=== PATIENT | female | born 1945 | race Caucasian/White ===

== ENCOUNTER 2022-05-18 11:28 | Inpatient (IN) | payer MEDICARE, OTHER ==
[~2022-05-18] VITALS: Ht 170.1 cm; Wt 81.6 kg
--- NOTE | 2022-05-18 11:40 | ED Fall/Injury ---
General Chief Complaint: Trauma-Non Activation Stated Complaint: RT HIP AND SHOULDER PAIN, PT WAS FOUND ON FLOOR Source: patient, EMS, other (daughter ) Exam Limitations: no limitations History of Present Illness Date Seen by Provider: May 18, 2022 Time Seen by Provider: 11:24 Initial Comments This is a well-appearing 76-year-old female who presented to the ER via [facility] after being found down on floor in her home. She does have a history of dementia and lives independently but with her daughter next-door. She is typically able to complete all of her functions of daily living without issue. She states she believes she fell this morning, does not recall how she fell. She is complaining of mild pain in her right shoulder, right neck, right hip, right foot. When EMS arrived she was laying on her left lateral side. Daughter states that she is in new clothes so she is believed to have fallen sometime this morning after dressing. Allergies and Home Medications Allergies Coded Allergies: No Known Drug Allergies (Unverified , 05/18/22) Patient Home Medication List Home Medication List Reviewed: Yes Donepezil HCl (Donepezil HCl) 10 Mg Tablet, 10 MG PO HS, (Reported) Entered as Reported by: ISMA MATHEWS on 05/19/221520 Last Action: Continued Losartan Potassium (Losartan Potassium) 25 Mg Tablet, 25 MG PO DAILY, (Reported) Entered as Reported by: ISMA MATHEWS on 05/19/221520 Last Action: Continued Memantine HCl (Memantine HCl) 10 Mg Tablet, 10 MG PO BID, (Reported) Entered as Reported by: ISMA MATHEWS on 05/19/221520 Last Action: Continued Review of Systems Review of Systems Constitutional: no symptoms reported Eyes: No Symptoms Reported Ears, Nose, Mouth, Throat: no symptoms reported Respiratory: no symptoms reported Cardiovascular: no symptoms reported Gastrointestinal: no symptoms reported Genitourinary: no symptoms reported Musculoskeletal: see HPI Skin: no symptoms reported Psychiatric/Neurological: No Symptoms Reported Physical Exam Vital Signs Capillary Refill : Height, Weight, BMI Height: '" Weight: lbs. oz. kg; BMI Method: General Appearance: WD/WN, no apparent distress HEENT: PERRL/EOMI, normal ENT inspection, pharynx normal Neck: full range of motion, supple, normal inspection Cardiovascular: regular rate, rhythm, no murmur Respiratory: lungs clear, normal breath sounds, no respiratory distress, no accessory muscle use Gastrointestinal: normal bowel sounds, non tender, soft Back: normal inspection, no vertebral tenderness Extremities: other (right hip short and externally rotated, neurovascular intact distal to injury. No tenderness over bilateral knees. ) Neurologic/Psychiatric: no motor/sensory deficits, alert, normal mood/affect, oriented x 3 Skin: normal color, warm/dry Prichard Coma Score Best Eye Response: (4) Open Spontaneously Best Verbal Response: (5) Oriented Best Motor Response: (6) Obeys Commands Terry Total: 15 Progress/Results/Core Measures Results/Orders Lab Results Laboratory Tests Test 05/18/22 11:40 Range/Units White Blood Count 10.1 4.3-11.0 10^3/uL Red Blood Count 4.53 3.80-5.11 10^6/uL Hemoglobin 14.5 11.5-16.0 g/dL Hematocrit 44 35-52 % Mean Corpuscular Volume 96 80-99 fL Mean Corpuscular Hemoglobin 32 25-34 pg Mean Corpuscular Hemoglobin Concent 33 32-36 g/dL Red Cell Distribution Width 12.2 10.0-14.5 % Platelet Count 340 130-400 10^3/uL Mean Platelet Volume 9.6 9.0-12.2 fL Sodium Level 141 135-145 MMOL/L Potassium Level 3.8 3.6-5.0 MMOL/L Chloride Level 103 98-107 MMOL/L Carbon Dioxide Level 25 21-32 MMOL/L Anion Gap 13 5-14 MMOL/L Blood Urea Nitrogen 20 H 7-18 MG/DL Creatinine 0.84 0.60-1.30 MG/DL Estimat Glomerular Filtration Rate 72 BUN/Creatinine Ratio 24 Glucose Level 122 H 70-105 MG/DL Calcium Level 9.4 8.5-10.1 MG/DL Corrected Calcium 9.6 8.5-10.1 MG/DL Total Bilirubin 1.4 H 0.1-1.0 MG/DL Aspartate Amino Transf (AST/SGOT) 55 H 5-34 U/L Alanine Aminotransferase (ALT/SGPT) 26 0-55 U/L Alkaline Phosphatase 90 40-136 U/L Total Creatine Kinase 36 29-168 U/L Total Protein 8.1 6.4-8.2 GM/DL Albumin 3.8 3.2-4.5 GM/DL My Orders Orders - MARY ANN CUNHA APRN Ct Head/Cervical Spine Wo (05/18/22 11:33) Pelvis With Right Hip 2-3views (05/18/22 11:33) Shoulder, Right, 2 Views (05/18/22 11:33) Humerus, Right, 2 Views (05/18/22 11:33) Foot, Right, 3 View (05/18/22 11:33) Cbc No Diff (05/18/22 11:35) Comprehensive Metabolic Panel (05/18/22 11:35) Creatine Kinase (05/18/22 11:35) Ed Iv/Invasive Line Start (05/18/22 11:35) Chest 1 View, Ap/Pa Only (05/18/22 12:14) Fentanyl Inj (Sublimaze Injection) (05/18/22 12:45) Rodriguez Cath (05/18/22 12:38) Ice: Apply To Affected Area (05/18/22 12:38) Ed Admission (Communication) (05/18/22 13:39) Medications Given in ED Vital Signs/I&O Progress Progress Note : Progress Note Patient examined and in no acute distress. Trauma level 3 for presumed unwitnessed fall. She is awake and alert, GCS 15 upon arrival. ABCs intact. She is complaining of mild pain mostly on the right side of her body. We will go ahead and obtain some basic labs, CK, CT imaging of her head and cervical spine as well as x-rays of her right shoulder, hip and pelvis, foot. Daughter is at bedside. Confirms that patient does not take any anticoagulants. She takes 3 medications, 2 for dementia and 1 antihypertensive. Diagnostic Imaging Diagonstic Imaging: Xray Comments [facility], [place] NAME: ASTER HARRISON MED REC#: [id number] PT STATUS: ADM IN : 1945 PHYSICIAN: MARY ANN CUNHA APRN ADMIT DATE: 05/18/22 Signed Date of Exam:05/18/22 FOOT, RIGHT, 3 VIEW INDICATION: Fall, pain. COMPARISON: None available TECHNIQUE: 3 radiographs of the right foot dated 05/18/2022. FINDINGS: Severe hallux valgus metatarsus primus varus with bunion formation. A linear lucency with cortical disruption is noted involving the base of the 5th metatarsal. However, overlying external artifact is seen at this location on the frontal and oblique views. No additional fracture or dislocation. No destructive osseous process. Scattered degenerative changes are present, including prominent osteophyte formation involving the dorsum of the midfoot. Small plantar calcaneal enthesophyte. Scattered degenerative changes, by far greatest involving the 1st MTP joint. IMPRESSION: Lucency involving the base of the 5th metatarsal. This may relate to the overlying artifact at this location, though nondisplaced recent fracture should be considered. Recommend correlation for focal pain at the base of the 5th metatarsal. Severe hallux valgus metatarsus primus varus with bunion formation. Scattered degenerative changes. Dictated by: Dictated on workstation # [id number] Dict: 05/18/22 1259 Trans: 05/18/22 1613 [id number] Interpreted by: ADAM ACEVES MD Electronically signed by: ADAM ACEVES MD 05/18/22 1613 Comments [facility], [place] NAME: ASTER HARRISON [facility] REC#: [id number] PT STATUS: ADM IN : 1945 PHYSICIAN: MARY ANN CUNHA APRN ADMIT DATE: 05/18/22 Signed Date of Exam:05/18/22 CT HEAD/CERVICAL SPINE WO PROCEDURE: CT head and CT cervical spine without contrast. TECHNIQUE: Multiple contiguous axial images were obtained through the brain and cervical spine without the use of intravenous contrast. Sagittal and coronal reformations through the cervical spine were then performed. Auto Exposure Controls were utilized during the CT exam to meet ALARA standards for radiation dose reduction. INDICATION: Suspicion for unwitnessed fall. COMPARISON: I have no relevant comparison. FINDINGS: CT HEAD: Cerebral cortical atrophy and periventricular white matter small vessel disease are chronic senescent findings. There is no raheem hydrocephalus and no focal or generalized cerebral edema. There is no evidence for an elevation of the intracerebral pressures. No pneumocephalus. No calvarial fracture deformity. No acute or suspicious extra-axial fluid collection. There is membrane thickening as well as some fluid within the left maxillary sinus. I cannot identify a maxillary sinus wall fracture, and this is likely on an inflammatory basis as opposed to reflective of post-traumatic change. No facial fracture deformity, and no appreciable hemo-sinus. CT CERVICAL SPINE: Cervical body heights are maintained and alignment anatomic. There are degenerative changes to the discs, endplates, and facets but no high-grade canal stenosis and no cervical spinal fracture or traumatic malalignment. The craniocervical relationship appeared normal. The central skull base is intact. There are carotid atherosclerotic vascular calcifications. Hyoid structures of the larynx and thyroid cartilage showed no traumatic deformity. The thoracic inlet and pulmonary apices are nonacute. IMPRESSION: CT HEAD: Chronic senescent changes and likely inflammatory left maxillary sinus disease with no acute or post-traumatic sequelae identified. CT CERVICAL: Degenerative changes with no fracture or traumatic malalignment. Dictated by: Dictated on workstation # [id number] Dict: 05/18/22 1204 Trans: 05/18/221726 [id number] Interpreted by: JARETT DOWELL Electronically signed by: JARETT DOWELL 05/18/221726 Diagonstic Imaging: Xray Comments [facility], [place] NAME: CHRISTYASTER MED REC#: [id number] PT STATUS: ADM IN : 1945 PHYSICIAN: MARY ANN CUNHA APRN ADMIT DATE: 05/18/22 Signed Date of Exam:05/18/22 PELVIS WITH RIGHT HIP 2-3VIEWS PELVIS WITH RIGHT HIP 2-3VIEWS INDICATION: Right hip pain after fall. COMPARISON: None available. TECHNIQUE: AP pelvis with AP and crosstable lateral views of right hip. FINDINGS: There is an acute fracture of the right femoral neck within the vgm-sd-evrsvqddkdhc region. The fracture is mildly impacted into the femoral shaft component. Moderate osteoarthritis of right hip. Degenerative changes are also present in the left hip and lumbar spine. IMPRESSION: Acute fracture of the right femoral neck within the basicervical region is mildly impacted. Dictated by: Dictated on workstation # [id number] Dict: 05/18/22 1242 Trans: 05/18/221726 [facility] [id number] Interpreted by: SHANNAN PALOMINO MD Electronically signed by: SHANNAN PALOMINO MD 05/18/221726 Diagonstic Imaging: Xray Comments [facility], [place] NAME: ASTER HARRISON [facility] REC#: [id number] PT STATUS: ADM IN : 1945 PHYSICIAN: MARY ANN CUNHA APRN ADMIT DATE: 05/18/22 Signed Date of Exam:05/18/22 HUMERUS, RIGHT, 2 VIEWS HUMERUS, RIGHT, 2 VIEWS INDICATION: Right upper arm injury. COMPARISON: None available. TECHNIQUE: Two views of the right humerus. FINDINGS: No acute fracture within the humerus. The shoulder and elbow are normal in alignment. No radiopaque foreign body. IMPRESSION: No fracture within the right humerus. Dictated by: Dictated on workstation # [id number] Dict: 05/18/22 1241 Trans: 05/18/221726 [id number] Interpreted by: SHANNAN PALOMINO MD Electronically signed by: SHANNAN PALOMINO MD 05/18/221726 Diagonstic Imaging: Xray Comments [facility] [place] NAME: ASTER HARRISON [facility] REC#: [id number] PT STATUS: ADM IN : 1945 PHYSICIAN: MARY ANN CUNHA APRN ADMIT DATE: 05/18/22 Signed Date of Exam:05/18/22 SHOULDER, RIGHT, 2 VIEWS SHOULDER, RIGHT, 2 VIEWS INDICATION: Right shoulder injury. COMPARISON: None available. TECHNIQUE: 3 views right shoulder FINDINGS: No acute fracture. Glenohumeral and acromioclavicular joints are normal alignment. Mild AC joint osteoarthritis. Subacromial space is preserved. IMPRESSION: No acute fracture or traumatic malalignment. Dictated by: Dictated on workstation # [id number] Dict: 05/18/22 1240 Trans: 05/18/221726 [id number] Interpreted by: SHANNAN PALOMINO MD Electronically signed by: SHANNAN PALOMINO MD 05/18/227 Diagonstic Imaging: Xray Comments [facility] [place], [place] NAME: ASTER HARRISON [facility] REC#: [id number] PT STATUS: ADM IN : 1945 PHYSICIAN: MARY ANN CUNHA APRN ADMIT DATE: 05/18/22/4TH Signed Date of Exam:05/18/22 CHEST 1 VIEW, AP/PA ONLY INDICATION: Preoperative evaluation, fall. COMPARISON: None available. TECHNIQUE: Single radiograph of the chest dated 05/18/2022. FINDINGS: The cardiac silhouette is within normal limits in size. No significant pulmonary vascular congestion. Blunting of the left costophrenic angle. The lungs otherwise appear clear. No significant right pleural effusion. No pneumothorax. No acute osseous abnormality. IMPRESSION: Blunting of the left costophrenic angle is felt to relate to a small pleural effusion versus mild focal atelectasis versus infiltrate. Recommend radiographic follow-up to ensure clearance. Dictated by: Dictated on workstation # [id number] Dict: 05/18/22 1307 Trans: 05/18/22 1614 [id number] Interpreted by: ADAM ACEVES MD Electronically signed by: ADAM ACEVES MD 05/18/22 1614 Departure Communication (Admissions) Time/Spoke to Admitting Phy: 13:[address] Nunez, accepted admission to medical unit. Time/Spoke to Consulting Phy: 13:[address] Elizondo orthopedic surgeon. Will admit inpatient and repair in AM. Impression Primary Impression: Fall on same level Additional Impression: Fracture of femoral neck, right, closed Disposition: ADMITTED INPATIENT Condition: Stable Admissions Decision to Admit Reason: Admit from ER (Trauma) Decision to Admit/Date: May 18, 2022 Time/Decision to Admit Time: 13:00 Departure-Patient Inst. Referrals: ANGELINA DENSON DO (PCP) Primary Care Physician MARY ANN CUNHA APRN May 18, 2022 11:40
[2022-05-18 11:48] LABS: HEMATOCRIT 44 % (35-52); HEMOGLOBIN 14.5 g/dL (11.5-16.0); MEAN CORPUSCULAR HEMOGLOBIN 32 pg (25-34); MEAN CORPUSCULAR HGB CONC 33 g/dL (32-36); MEAN CORPUSCULAR VOLUME 96 fL (80-99); MEAN PLATELET VOLUME 9.6 fL (9.0-12.2); PLATELET COUNT 340 10^3/uL (130-400); WHITE BLOOD COUNT 10.1 10^3/uL (4.3-11.0)
[2022-05-18 12:12] LABS: ALBUMIN 3.8 GM/DL (3.2-4.5); POTASSIUM 3.8 MMOL/L (3.6-5.0)
[2022-05-18 12:13] LABS: CALCIUM 9.4 MG/DL (8.5-10.1)
[2022-05-18 12:14] LABS: TOTAL PROTEIN 8.1 GM/DL (6.4-8.2)
[2022-05-18 12:16] LABS: BILIRUBIN,TOTAL 1.4 MG/DL (0.1-1.0)
[2022-05-18 12:18] LABS: CREATININE SERUM 0.84 MG/DL (0.60-1.30)
--- NOTE | 2022-05-18 12:21 | Diagnostic Imaging Report ---
PROCEDURE: CT head and CT cervical spine without contrast. TECHNIQUE: Multiple contiguous axial images were obtained through the brain and cervical spine without the use of intravenous contrast. Sagittal and coronal reformations through the cervical spine were then performed. Auto Exposure Controls were utilized during the CT exam to meet ALARA standards for radiation dose reduction. INDICATION: Suspicion for unwitnessed fall. COMPARISON: I have no relevant comparison. FINDINGS: CT HEAD: Cerebral cortical atrophy and periventricular white matter small vessel disease are chronic senescent findings. There is no raheem hydrocephalus and no focal or generalized cerebral edema. There is no evidence for an elevation of the intracerebral pressures. No pneumocephalus. No calvarial fracture deformity. No acute or suspicious extra-axial fluid collection. There is membrane thickening as well as some fluid within the left maxillary sinus. I cannot identify a maxillary sinus wall fracture, and this is likely on an inflammatory basis as opposed to reflective of post-traumatic change. No facial fracture deformity, and no appreciable hemo-sinus. CT CERVICAL SPINE: Cervical body heights are maintained and alignment anatomic. There are degenerative changes to the discs, endplates, and facets but no high-grade canal stenosis and no cervical spinal fracture or traumatic malalignment. The craniocervical relationship appeared normal. The central skull base is intact. There are carotid atherosclerotic vascular calcifications. Hyoid structures of the larynx and thyroid cartilage showed no traumatic deformity. The thoracic inlet and pulmonary apices are nonacute. IMPRESSION: CT HEAD: Chronic senescent changes and likely inflammatory left maxillary sinus disease with no acute or post-traumatic sequelae identified. CT CERVICAL: Degenerative changes with no fracture or traumatic malalignment. Dictated by: Dictated on workstation # [id number]
--- NOTE | 2022-05-18 12:42 | Diagnostic Imaging Report ---
SHOULDER, RIGHT, 2 VIEWS INDICATION: Right shoulder injury. COMPARISON: None available. TECHNIQUE: 3 views right shoulder FINDINGS: No acute fracture. Glenohumeral and acromioclavicular joints are normal alignment. Mild AC joint osteoarthritis. Subacromial space is preserved. IMPRESSION: No acute fracture or traumatic malalignment. Dictated by: Dictated on workstation # [id number]
--- NOTE | 2022-05-18 12:44 | Diagnostic Imaging Report ---
HUMERUS, RIGHT, 2 VIEWS INDICATION: Right upper arm injury. COMPARISON: None available. TECHNIQUE: Two views of the right humerus. FINDINGS: No acute fracture within the humerus. The shoulder and elbow are normal in alignment. No radiopaque foreign body. IMPRESSION: No fracture within the right humerus. Dictated by: Dictated on workstation # [id number]
[2022-05-18] MEDS ORDERED: fentaNYL INJ 100 MCG/2 ML AMP IVP ONE (12:45)
--- NOTE | 2022-05-18 12:51 | Diagnostic Imaging Report ---
PELVIS WITH RIGHT HIP 2-3VIEWS INDICATION: Right hip pain after fall. COMPARISON: None available. TECHNIQUE: AP pelvis with AP and crosstable lateral views of right hip. FINDINGS: There is an acute fracture of the right femoral neck within the iqx-zs-tpadfqzxkknk region. The fracture is mildly impacted into the femoral shaft component. Moderate osteoarthritis of right hip. Degenerative changes are also present in the left hip and lumbar spine. IMPRESSION: Acute fracture of the right femoral neck within the basicervical region is mildly impacted. Dictated by: Dictated on workstation # [id number]
--- NOTE | 2022-05-18 13:08 | Diagnostic Imaging Report ---
INDICATION: Fall, pain. COMPARISON: None available TECHNIQUE: 3 radiographs of the right foot dated 05/18/2022. FINDINGS: Severe hallux valgus metatarsus primus varus with bunion formation. A linear lucency with cortical disruption is noted involving the base of the 5th metatarsal. However, overlying external artifact is seen at this location on the frontal and oblique views. No additional fracture or dislocation. No destructive osseous process. Scattered degenerative changes are present, including prominent osteophyte formation involving the dorsum of the midfoot. Small plantar calcaneal enthesophyte. Scattered degenerative changes, by far greatest involving the 1st MTP joint. IMPRESSION: Lucency involving the base of the 5th metatarsal. This may relate to the overlying artifact at this location, though nondisplaced recent fracture should be considered. Recommend correlation for focal pain at the base of the 5th metatarsal. Severe hallux valgus metatarsus primus varus with bunion formation. Scattered degenerative changes. Dictated by: Dictated on workstation # [id number]
--- NOTE | 2022-05-18 13:13 | Diagnostic Imaging Report ---
INDICATION: Preoperative evaluation, fall. COMPARISON: None available. TECHNIQUE: Single radiograph of the chest dated 05/18/2022. FINDINGS: The cardiac silhouette is within normal limits in size. No significant pulmonary vascular congestion. Blunting of the left costophrenic angle. The lungs otherwise appear clear. No significant right pleural effusion. No pneumothorax. No acute osseous abnormality. IMPRESSION: Blunting of the left costophrenic angle is felt to relate to a small pleural effusion versus mild focal atelectasis versus infiltrate. Recommend radiographic follow-up to ensure clearance. Dictated by: Dictated on workstation # [id number]
[2022-05-18] MEDS ORDERED: ALPRAZolam 0.25 MG (XANAX) TAB PO ONE (13:45)
[2022-05-18] MEDS ORDERED: fentaNYL INJ 100 MCG/2 ML AMP IVP PRN (14:45)
[2022-05-18] MEDS ORDERED: LACTULOSE SYRUP 10GM/15ML (ENULOSE) 30ML UDC PO PRN (14:45)
[2022-05-18] MEDS ORDERED: ONDANSETRON 4 MG/2 ML (SDV) Z0FRAN IV PRN (14:45)
[2022-05-18] MEDS ORDERED: CALCIUM CARBONATE 500 MG (TUMS) TAB.CHEW PO PRN (14:45)
[2022-05-18] MEDS ORDERED: MELATONIN 3 MG TABLET PO PRN (14:45)
[2022-05-18] MEDS ORDERED: ANTACID SUSP 30 ML UDC (MYLANTA) PO PRN (14:45)
[2022-05-18] MEDS ORDERED: ONDANSETRON 4 MG (ZOFRAN) ORAL DISSOLVE TAB PO PRN (14:45)
[2022-05-18] MEDS ORDERED: BISACODYL 10 MG SUPP (DULCOLAX) PR PRN (14:45)
[2022-05-18] MEDS ORDERED: polyethylene glycoL POWDER 17 GM (MIRALAX) PACK PO PRN (14:45)
[2022-05-18] MEDS ORDERED: ACETAMINOPHEN 325 MG TABLET PO PRN (14:45)
[2022-05-18] MEDS ORDERED: MILK OF MAGNESIA 400 MG/5 ML 30 ML UDC PO PRN (14:45)
[2022-05-18] MEDS ORDERED: NS IV 500 ML 500 ML IV PRN (14:45)
[2022-05-18] MEDS ORDERED: ENOXAPARIN 40 MG/0.4 ML (LOVENOX) SYR SC SCH (15:30)
[2022-05-18 16:00] VITALS: BP 150/72
[2022-05-18] MEDS: LACTATED RINGERS 1,000 ML IV SCH (16:23)
[2022-05-18 19:11] VITALS: BP 140/64
[2022-05-18] MEDS: DOCUSATE SODIUM 100 MG (COLACE) CAP PO SCH (19:42)
[2022-05-18] MEDS: SENNOSIDES 8.6 MG (SENOKOT) TAB PO SCH (19:42)
--- NOTE | 2022-05-18 21:13 | CONSULTATION REPORT ---
DATE OF SERVICE: 05/18/2022 INPATIENT CONSULTATION REASON FOR CONSULTATION: Right displaced femoral neck fracture. HISTORY OF PRESENT ILLNESS: The patient is a 76-year-old female with dementia, who lives independently, but next door to her daughter who is her primary ui programmer. She was in her normal state of health until she was found this morning down. She presented to the Emergency Department where she was found to have a displaced right femoral neck fracture. She was admitted for definitive fixation. She by report did not use any assistive devices for ambulation prior to her fall. REVIEW OF SYSTEMS: No recent chest pain, shortness of breath or dysuria. PAST MEDICAL HISTORY: Significant for hypertension and for dementia. Examination of right hip is short and externally rotated. She is tender over the lateral aspect of her hip. No skin lesions are noted. She has intact dorsiflexion and plantarflexion of the toes. Sensation is intact to light touch. Pulses are symmetric. Radiographs reveal a displaced right femoral neck fracture. IMPRESSION: Closed displaced right femoral neck fracture. PLAN: Right hip bipolar replacement. The risks, benefits, options, ramifications and recovery were discussed with the patient and her daughter. They understand and wished to proceed. Job ID: [id number] DocumentID: [id number] Dictated Date: 05/18/2022 16:36:49 Peripheral Vascular Tech Date: 05/18/2022 21:12:57 Dictated By: MEREDITH PADILLA MD
[2022-05-18 23:02] VITALS: BP 137/67
[2022-05-19] VITALS (11 sets, daily range): BP systolic 102–160; BP diastolic 66–96
[2022-05-19] MEDS: LACTATED RINGERS 1,000 ML IV SCH ×3 (03:01→22:28)
[2022-05-19 05:37] LABS: HEMATOCRIT 38 % (35-52); HEMOGLOBIN 12.9 g/dL (11.5-16.0); MEAN CORPUSCULAR HEMOGLOBIN 33 pg (25-34); MEAN CORPUSCULAR HGB CONC 34 g/dL (32-36); MEAN CORPUSCULAR VOLUME 96 fL (80-99); MEAN PLATELET VOLUME 9.8 fL (9.0-12.2); PLATELET COUNT 245 10^3/uL (130-400); WHITE BLOOD COUNT 10.5 10^3/uL (4.3-11.0)
[2022-05-19 05:47] LABS: POTASSIUM 3.6 MMOL/L (3.6-5.0)
[2022-05-19 05:48] LABS: CALCIUM 8.8 MG/DL (8.5-10.1)
[2022-05-19 05:52] LABS: CREATININE SERUM 0.69 MG/DL (0.60-1.30)
[2022-05-19] MEDS: KCL 20 MEQ TAB (K-DUR) PO SCH (05:53)
[2022-05-19 05:54] LABS: MAGNESIUM 1.9 MG/DL (1.6-2.4)
[2022-05-19] MEDS: MAGNESIUM 1 GM/100 ML IVPB 100 ML IV SCH (05:55)
[2022-05-19] MEDS: POTASSIUM CL 10MEQ/50ML IVPB 50 ML IV SCH ×3 (05:55→07:14)
[2022-05-19] MEDS: SENNOSIDES 8.6 MG (SENOKOT) TAB PO SCH ×2 (08:39→22:28)
[2022-05-19] MEDS: DOCUSATE SODIUM 100 MG (COLACE) CAP PO SCH ×2 (08:39→22:28)
[2022-05-19] MEDS ORDERED: BUPIVACAINE 0.5% 30 ML (SENSORCAINE) VIAL ONE (09:54)
[2022-05-19] MEDS ORDERED: BUPIVACAINE 0.5% 30 ML (SENSORCAINE) VIAL INJ ONE (09:59)
[2022-05-19] MEDS: LACTATED RINGERS 1,000 ML IV PRN ×2 (10:27→12:07)
--- NOTE | 2022-05-19 10:49 | Progress Note-Pre Operative ---
Pre-Operative Progress Note Date of Available H&P: May 19, 2022 Date H&P Reviewed: May 19, 2022 Time H&P Reviewed: 10:38 Changes from last HP none Pre-Operative Diagnosis: right femoral neck fracture MEREDITH PADILLA MD May 19, 2022 10:49
--- NOTE | 2022-05-19 10:50 | Progress Note-Post Operative ---
Post-Operative Progess Note Surgeon (s)/Groundskeeper Porter (s) Surgeon MEREDITH PADILLA MD Groundskeeper Porter: Lew Brown Pre-Operative Diagnosis right femoral neck fracture Post-Operative Diagnosis right femoral neck fracture Procedure & Operative Findings Date of Procedure 05/19/22 Procedure Performed/Findings right hip bipolar replacement Anesthesia Type GETA Estimated Blood Loss Estimated blood loss (mL): 100ml Specimens/Packing Specimens Removed femoral head Packing: none MEREDITH PADILLA MD May 19, 2022 10:50
[2022-05-19] MEDS ORDERED: ceFAZolin INJECTION 2,000 MG in NS (IVPB) 50 ML IV SCH (11:00)
[2022-05-19] MEDS ORDERED: ROCURONIUM 50 MG/5 ML (ZEMURON) VIAL IV ONE (11:10)
[2022-05-19] MEDS ORDERED: LIDOCAINE PF 2% 5 ML (XYLOCAINE) VIAL ONE (11:10)
[2022-05-19] MEDS ORDERED: proPOfol 200 MG/20 ML (DIPRIVAN) VIAL IV ONE (11:10)
[2022-05-19] MEDS ORDERED: ONDANSETRON 4 MG/2 ML (SDV) Z0FRAN ONE (11:10)
[2022-05-19] MEDS ORDERED: fentaNYL INJ 100 MCG/2 ML AMP ONE (11:10)
[2022-05-19] MEDS ORDERED: TEMAZEPAM 15 MG (RESTORIL) CAP PO PRN (11:15)
[2022-05-19] MEDS ORDERED: ONDANSETRON 4 MG/2 ML (SDV) Z0FRAN IVP PRN ×2 (11:15→13:00)
[2022-05-19] MEDS ORDERED: diphenhydrAMINE 50 MG/ML INJ (BENADRYL) IVP PRN (11:15)
[2022-05-19] MEDS ORDERED: fentaNYL INJ 100 MCG/2 ML AMP IVP PRN (11:15)
[2022-05-19] MEDS ORDERED: ACETAMINOPHEN 325 MG TABLET PO PRN (11:15)
[2022-05-19] MEDS ORDERED: ROPIVACAINE 5MG/ML 30ML VIAL ONE (12:17)
[2022-05-19] MEDS ORDERED: SEVOFLURANE (ULTANE) 15 ML INHAL SOLN ONE (12:31)
[2022-05-19] MEDS ORDERED: morphine INJ 10 MG/ML 1ML (SYR OR VIAL) IVP ONE (13:00)
--- NOTE | 2022-05-19 13:29 | Diagnostic Imaging Report ---
INDICATION: Postop knee replacement. FINDINGS: Right hip replacement performed in anatomic alignment. No fracture or destruction of the residual bony structures. Soft tissue natali noted. No unexpected or pathological foreign body. IMPRESSION: Good appearance of the postop right hip. Dictated by: Dictated on workstation # [id number]
--- NOTE | 2022-05-19 15:17 | Physical Therapy Evaluation ---
PT Evaluation-General Medical Diagnosis Admission Date May 18, 2022 at 13:42 Medical Diagnosis: right bipolar hip replacement Onset Date: May 19, 2022 Therapy Diagnosis Therapy Diagnosis: impaired mobility Precautions Precautions/Isolations: Fall Prevention, Standard Precautions Weight Bear Status Right Lower Extremity: Right Partial Weight Bearing Left Lower Extremity: Left Full Weight Bearing Referral Physician: Kevin Reason for Referral: Evaluation/Treatment Medical History Additional Medical History PAST MEDICAL HISTORY: Significant for hypertension and for dementia. Reviewed History: Yes Social History unknown, patient is confused, chart states she lives independently Prior Prior Level of Function SCALE: Activities may be completed with or without assistive devices. 7-Nxgevlmygt-wjlnrjc completes the activity by him/herself with no assistance from a helper. 5-Set-up or Clean-up Assistance-helper sets up or cleans up; patient completes activity. [place] assists only prior to or following the activity. 4-Supervision or Touching Assistance-helper provides verbal cues and/or touching/steadying and/or contact guard assistance as patient completes activity. Assistance may be provided throughout the activity or intermittently. 3-Partial/Moderate Assistance-helper does LESS THAN HALF the effort. [place] lifts, holds or supports trunk or limbs, but provides less than half the effort. 2-Substantial/Maximal Assistance-helper does MORE THAN HALF the effort. [place] lifts or holds trunk or limbs and provides more than half the effort. 3-Yubtwdgas-wjgtow does ALL the effort. Patient does none of the effort to complete the activity. Or, the assistance of 2 or more helpers is required for the patient to complete the activity. If activity was not attempted, code reason: 7-Patient Refused. 9-Not Applicable-not attempted and the patient did not perform the activity before the current illness, exacerbation or injury. 10-Not Attempted due to Environmental Limitations-(lack of equipment, weather restraints, etc.). 88-Not Attempted due to Medical Conditions or Safety Concerns. unknown PT Evaluation-Current Subjective Patient in bed pre tx, confused, agrees to PT, can't state whether or not she has any pain. Pt/Family Goals none stated Objective Patient Orientation: Person, Confused Attachments: Rodriguez Catheter, IV Transfers Roll Left to Right (QC): 2 Sit to Lying (QC): 1 Lying to Sitting/Side of Bed(Q: 1 Sit to Stand (QC): 2 Patient required assist of 2 for supine to sit, max assist to stand, patient was able to take a few sidesteps toward the head of the bed before sitting back down, she even seemed compliant with PWB on the right leg. Assist of 2 to lay back down and scoot up. Balance Sitting Static: Fair Sitting Dynamic: Fair Standing Static: Poor Standing Dynamic: Poor Treatment RLE exercise x10 (AP, HS, SAQ, hip abd/add) Assessment/Needs Patient in bed post tx with nurse call, phone, tray, bed alarm on. Patient has impaired mobility , strength, endurance. Needs a lot of assistance for supine <-> sit and to stand. Rehab Potential: Fair PT Control Analyst Goals Control Analyst Goals PT Control Analyst Goals Time Frame: May 26, 2022 Roll Left & Right (QC): 4 Sit to Lying (QC): 4 Lying-Sitting on Side/Bed(QC): 4 Sit to Stand (QC): 4 Chair/Use-zi-Eikbu Xfer(QC): 4 Walk 10 feet (QC): 4 Walk 50ft with 2 Turns (QC): 4 PT Plan Problem List Problem List: Activity Tolerance, Functional Strength, Safety, Balance, Gait, Transfer, Bed Mobility, ROM Treatment/Plan Treatment Plan: Continue Plan of Care Treatment Plan: Bed Mobility, Education, Functional Activity Armand, Functional Strength, Gait, Safety, Therapeutic Exercise, Transfers Treatment Duration: May 26, 2022 Frequency: 11 times per week Estimated Hrs Per Day: .25 hour per day Patient and/or Family Agrees t: Yes Safety Risks/Education Patient Education: Gait Training, Transfer Techniques, Reviewed Precautions, Correct Positioning, Safety Issues Teaching Recipient: Patient Teaching Methods: Demonstration, Discussion Response to Teaching: Reinforcement Needed Discharge Recommendations Plan Patient will perform bed mobility and transfer training, balance and endurance training, functional strengthening, stair training, gait training, and education, to improve functional mobility and independence at home. Therapy Discharge Recommendati: Scheduled Assistance, Assisted Living, Home & Family, Post Acute PT Time/GCodes Time In: 1440 Time Out: 1453 Total Billed Treatment Time: 13 Total Billed Treatment 1 visit GEORGETTE DEAN PT May 19, 2022 15:17
[2022-05-19] MEDS ORDERED: LOSA25TA41 PO (15:21)
[2022-05-19] MEDS ORDERED: MEMA10TA57 PO (15:21)
[2022-05-19] MEDS ORDERED: DONE10TA41 PO (15:21)
[2022-05-19] MEDS: CEFUROXIME INJECTION 750 MG in NS (IVPB) 50 ML IV SCH (18:25)
--- NOTE | 2022-05-19 18:41 | OPERATIVE REPORT ---
DATE OF SERVICE: 05/19/2022 PREOPERATIVE DIAGNOSIS: Closed displaced right femoral neck fracture. POSTOPERATIVE DIAGNOSIS: Closed displaced right femoral neck fracture. PROCEDURE: Right hip bipolar replacement. SURGEON: Benjamín Elizondo MD MASTER WELDER: Lew Brown, who assisted throughout the procedure and closed the incision. ANESTHESIA: General endotracheal by Jose Eubanks CRNA. ESTIMATED BLOOD LOSS: 100 mL. DRAINS: None. COMPLICATIONS: None. POSTOPERATIVE PLAN: Hip precautions with weightbearing as tolerated. MATERIALS: Microport pressfit 13.5 stem with a 47 mm shell and a 28 long head. STATEMENT OF MEDICAL NECESSITY: The patient is a 76-year-old female, who fell yesterday and was found to have a closed displaced right femoral neck fracture. The patient and her family were counseled regarding treatment options and elected to proceed with surgical intervention. DESCRIPTION OF PROCEDURE: After risks and benefits of the procedure were discussed and questions were answered, an informed consent was signed and placed on chart, the operative site was confirmed in the preoperative holding area initialed by the surgeon. The patient was transferred to the operating room and after adequate levels of general endotracheal anesthetic were obtained, a timeout was called, confirming the operative site and the patient was placed in the left lateral decubitus position, being careful to place an axillary roll and pad all bony prominences. The right hip and lower extremity were prepped and draped in the usual sterile fashion. A longitudinal incision was made with an anterolateral approach was performed. The underlying soft tissues were carefully dissected. The iliotibial band was incised in line with the incision. The abductor attachment was released, leaving 2 cm cuff for later reapproximation. Hip capsulotomy was performed. The femoral head was removed. The femoral neck cut was made using a broach as a guide and then prepared with hand reaming followed by broaching to the 13.5 broach. It had been sized to a size 47, which was trialled in the acetabulum and had excellent coverage. The trials were placed with a +0.35 head. The hip was reduced after ensuring that there were no loose bodies in the acetabulum and irrigating copiously. The hip was taken through range of motion, no impingement noted and no instability was noted. Full range of motion was noted. The hip was then redislocated and the trials were removed. The joint was further irrigated with pulse lavage and the stem was placed in 15 degrees of anteversion. No fracture lines were noted. The superior surface was irrigated and the +3.5 x 28 head was placed with a 47 liner. The hip was then reduced after inspecting for any loose bodies and irrigating the acetabulum. The hip was taken through range of motion with no impingement and full range of motion noted. The joint was further irrigated with pulse lavage. The arthrotomy and abductor were reapproximated with #5 Tevdek in yfovgj-ta-hfahn interrupted fashion. The wound was further irrigated. #1 Vicryl was used to close the iliotibial band in a running fashion. Subcutaneous tissues were irrigated using a total of 3 liters throughout the procedure. A 0 Vicryl was used to deep subcutaneous layer, 2-0 Vicryl for the superficial subcutaneous layer, natali used on the skin. A soft dressing was applied. The patient was transferred to the recovery room awake and in stable condition. Job ID: [id number] DocumentID: [id number] Dictated Date: 05/19/2022 12:36:40 Rocket Engine Mechanic Date: 05/19/2022 18:41:05 Dictated By: BENJAMÍN ELIZONDO MD
--- NOTE | 2022-05-19 18:57 | History & Physical-Hospitalist ---
History of Present Illness HPI/Chief Complaint Maricruz Rodriguez is a 76 year old female with PMH HTN, dementia, who presented after a fall. She lives by herself in a home close to her daughter. She was found down on the floor this morning after a fall. She was found to have a hip fracture. She was seen following her surgery. She is having some pain. She was able to sta nd up with therapy after the surgery. She is eating her dinner now. Her appetite is good. She denies fevers and chills. She denies chest pain and shortness of breath. She denies nausea and vomiting. Source: patient Exam Limitations: no limitations Date Seen 05/19/22 Time Seen by a Provider: 10:55 Attending Physician Kenji Sanches DO PCP Admitting Physician: Nora Welsh MD Attending Physician: Nora Welsh MD Referring Physician Date of Admission May 18, 2022 at 13:42 Home Medications & Allergies Home Medications Reviewed patient Home Medication Reconciliation performed by pharmacy medication reconciliations breeding technician and/or nursing. Patients Allergies have been reviewed. Allergies Allergies Coded Allergies No Known Drug Allergies (Unverified05/18/22) Past Rydttgn-Zymrqy-Qbnwnw Hx Patient Social History Tobacco Use?: No Smoking Status: Never a Smoker Smokeless Tobacco Frequency: Never a User Use of E-Cig and/or Vaping dev: No Substance use?: No Alcohol Use?: No Pt feels they are or have been: No Current Status Advance Directives: No Communicates: Verbally Primary Language: Dominican Preferred Spoken Language: Dominican Is interpretation needed?: No Sensory deficits: Hearing impairment Additional sensory deficits: patient is able to read lips Implanted or Applied Medical D: None Past Medical History Hypertension Dementia Review of Systems Constitutional: no symptoms reported EENTM: no symptoms reported Respiratory: no symptoms reported Cardiovascular: no symptoms reported Gastrointestinal: no symptoms reported Physical Exam Physical Exam Vital Signs Vital Signs - First Documented 05/18/22 11:29 Temp 35.6 Pulse 65 Resp 16 B/P (MAP) 121/65 (83) Pulse Ox 95 O2 Delivery Room Air Capillary Refill : Less Than 3 SecondsLess Than 3 Seconds Height, Weight, BMI Height: '" Weight: lbs. oz. kg; 28.20 BMI Method: General Appearance: No Apparent Distress, WD/WN HEENT: PERRL/EOMI, Pharynx Normal, Other (hard of hearing) Respiratory: Lungs Clear, Normal Breath Sounds, No Respiratory Distress Cardiovascular: Regular Rate, Rhythm, No Edema, No Murmur Gastrointestinal: Normal Bowel Sounds, Non Tender, Soft Extremity: Normal Inspection, No Pedal Edema Neurologic/Psychiatric: Alert, Normal Mood/Affect Results Results/Procedures Labs Laboratory Tests 05/18/22 11:40 05/19/22 05:29 Patient resulted labs reviewed. Imaging: Reviewed Imaging Report Assessment/Plan Admission Diagnosis Hip fracture Admission Status: Inpatient Order (span 2 midnights) Reason for Inpatient Admission: Hip fracture Surgery Assessment and Plan Hip fracture Fall Orthopedic surgery consulted s/p surgical repair 05/19 PT/OT IRF evaluation Incentive spirometry Pain regimen Bowel regimen HTN Dementia Continue home meds DVT prophylaxis: Lovenox Diagnosis/Problems Diagnosis/Problems (1) Fracture of femoral neck, right, closed Status: Acute Qualifiers: Encounter type: initial encounter Qualified Codes: S72.001A - Fracture of unspecified part of neck of right femur, initial encounter for closed fracture (2) Fall on same level Status: Acute Qualifiers: Encounter type: initial encounter Qualified Codes: W18.30XA - Fall on same level, unspecified, initial encounter (3) Hypertension Status: Chronic Qualifiers: Hypertension type: primary hypertension Qualified Codes: I10 - Essential (primary) hypertension (4) Dementia Status: Chronic NORA WELSH MD May 19, 2022 18:57
[2022-05-19] MEDS ORDERED: hydrALAZINE (APESOLINE) 20 MG/ML VIAL IV PRN (19:00)
[2022-05-19] MEDS ORDERED: SENNOSIDES 8.6 MG (SENOKOT) TAB PO SCH (21:00)
[2022-05-19] MEDS: DONEPEZIL 10 MG (ARICEPT) TAB PO SCH (22:28)
[2022-05-19] MEDS: MEMANTINE 10 MG (NAMENDA) TABLET PO SCH (22:28)
[2022-05-20 00:19] VITALS: BP 132/76
[2022-05-20] MEDS: CEFUROXIME INJECTION 750 MG in NS (IVPB) 50 ML IV SCH (03:48)
[2022-05-20 04:08] VITALS: BP 139/76
[2022-05-20 05:59] LABS: HEMATOCRIT 33 % (35-52); HEMOGLOBIN 11.1 g/dL (11.5-16.0); MEAN CORPUSCULAR HEMOGLOBIN 33 pg (25-34); MEAN CORPUSCULAR HGB CONC 34 g/dL (32-36); MEAN CORPUSCULAR VOLUME 96 fL (80-99); MEAN PLATELET VOLUME 10.5 fL (9.0-12.2); PLATELET COUNT 262 10^3/uL (130-400); WHITE BLOOD COUNT 15.4 10^3/uL (4.3-11.0)
[2022-05-20 06:24] LABS: POTASSIUM 3.9 MMOL/L (3.6-5.0)
[2022-05-20 06:25] LABS: CALCIUM 8.4 MG/DL (8.5-10.1)
[2022-05-20 06:29] LABS: CREATININE SERUM 0.67 MG/DL (0.60-1.30)
[2022-05-20 06:32] LABS: MAGNESIUM 1.6 MG/DL (1.6-2.4)
[2022-05-20] MEDS: POTASSIUM CL 10MEQ/50ML IVPB 50 ML IV SCH (06:37)
[2022-05-20] MEDS: KCL 20 MEQ TAB (K-DUR) PO SCH (06:38)
[2022-05-20] MEDS: MAGNESIUM 1 GM/100 ML IVPB 100 ML IV SCH ×3 (06:49→08:47)
--- NOTE | 2022-05-20 07:42 | Progress Note ---
Standard Progress Note Progress Notes/Assess & Plan Date Seen by a Provider: May 20, 2022 Time Seen by a Provider: 07:41 Progress/Assessment & Plan no complaints Radiographs--HW well positioned without fracture RLE--dressing intact. Intact DF and PF of toes and ankle 2 plus DP pulse with brisk cap refill s/p R hip biopolar mobilize as able MEREDITH PADILLA MD May 20, 2022 07:42
[2022-05-20 08:23] VITALS: BP 151/79
[2022-05-20] MEDS: ENOXAPARIN 40 MG/0.4 ML (LOVENOX) SYR SC SCH (08:46)
[2022-05-20] MEDS: ASPIRIN E.C. 81 MG (ECOTRIN) TAB PO SCH (08:47)
[2022-05-20] MEDS: LOSARTAN 25 MG (COZAAR) TAB PO SCH (08:47)
[2022-05-20] MEDS: DOCUSATE SODIUM 100 MG (COLACE) CAP PO SCH ×2 (08:47→19:58)
[2022-05-20] MEDS: MEMANTINE 10 MG (NAMENDA) TABLET PO SCH ×2 (08:47→19:59)
[2022-05-20] MEDS: SENNOSIDES 8.6 MG (SENOKOT) TAB PO SCH ×2 (08:47→19:59)
[2022-05-20] MEDS: LACTATED RINGERS 1,000 ML IV SCH ×3 (08:48→19:58)
--- NOTE | 2022-05-20 09:52 | Physical Therapy Daily Note ---
PT Daily Note-Current Subjective Patient is in bed and agrees to PT. Mental Status Patient Orientation: Person Attachments: Rodriguez Catheter, IV Transfers SCALE: Activities may be completed with or without assistive devices. 4-Szglhpvjbr-jkahyek completes the activity by him/herself with no assistance from a helper. 5-Set-up or Clean-up Assistance-helper sets up or cleans up; patient completes activity. [place] assists only prior to or following the activity. 4-Supervision or Touching Assistance-helper provides verbal cues and/or touching/steadying and/or contact guard assistance as patient completes activity. Assistance may be provided throughout the activity or intermittently. 3-Partial/Moderate Assistance-helper does LESS THAN HALF the effort. [place] lifts, holds or supports trunk or limbs, but provides less than half the effort. 2-Substantial/Maximal Assistance-helper does MORE THAN HALF the effort. [place] lifts or holds trunk or limbs and provides more than half the effort. 8-Wnaiskcbv-zcyhok does ALL the effort. Patient does none of the effort to complete the activity. Or, the assistance of 2 or more helpers is required for the patient to complete the activity. If activity was not attempted, code reason: 7-Patient Refused. 9-Not Applicable-not attempted and the patient did not perform the activity before the current illness, exacerbation or injury. 10-Not Attempted due to Environmental Limitations-(lack of equipment, weather restraints, etc.). 88-Not Attempted due to Medical Conditions or Safety Concerns. Lying to Sitting/Side of Bed(Q: 2 Sit to Stand (QC): 2 (x 4 sets to FWW) Chair/Lfl-hf-Asjje Xfer(QC): 2 Weight Bearing Right Lower Extremity: Right Partial Weight Bearing Left Lower Extremity: Left Full Weight Bearing Gait Training Distance: 10' x 2 Walk 10 feet (QC): 2 Gait Assistive Device: FWW difficulty with maintaining PWB right LE with continuous VC's Exercises Seated Therapy Exercises: Ankle pumps, Long arc quads Seated Reps: 15 Assessment Patient ceased treatment stating, "I need you to go away." PT to increase activity as tolerated/allowed by patient. Patient does have difficulty with miguel ntaining PWB right LE. PT Tag Machine Operator Goals Tag Machine Operator Goals PT Care Home Goals Time Frame: May 26, 2022 Roll Left & Right (QC): 4 Sit to Lying (QC): 4 Lying-Sitting on Side/Bed(QC): 4 Sit to Stand (QC): 4 Chair/Ahv-pt-Mwzqg Xfer(QC): 4 Walk 10 feet (QC): 4 Walk 50ft with 2 Turns (QC): 4 PT Plan Treatment/Plan Treatment Plan: Continue Plan of Care Treatment Plan: Bed Mobility, Education, Functional Activity Armand, Functional Strength, Gait, Safety, Therapeutic Exercise, Transfers Treatment Duration: May 26, 2022 Frequency: 11 times per week Estimated Hrs Per Day: .25 hour per day Patient and/or Family Agrees t: Yes Time/GCodes Time In: 837 Time Out: 853 Total Billed Treatment Time: 16 Total Billed Treatment 1 visit FA 16 min FLORENTINO SNIDER PT May 20, 2022 09:52
--- NOTE | 2022-05-20 10:49 | Occupational Therapy Eval ---
OT Evaluation-General/PLF Medical Diagnosis Admission Date May 18, 2022 at 13:42 Medical Diagnosis: right bipolar hip replacement Onset Date: May 19, 2022 Therapy Diagnosis Therapy Diagnosis: decreased ADL status Precautions Precautions/Isolations: Fall Prevention, Standard Precautions Comments hip precautions R Weight Bear Status Weight Bearing Restriction: Weight Bearing/Tolerated Referral Physician: Kevin Referral Reason: Evaluation/Treatment Medical History Additional Medical History HTN, dementia Current History s/p bipolar hip replacement R 05/19/22 ADL-Prior Level of Function SCALE: Activities may be completed with or without assistive devices. 3-Kyklveatnx-fgtgsii completes the activity by him/herself with no assistance from a helper. 5-Set-up or Clean-up Assistance-helper sets up or cleans up; patient completes activity. [place] assists only prior to or following the activity. 4-Supervision or Touching Assistance-helper provides verbal cues and/or touching/steadying and/or contact guard assistance as patient completes activit y. Assistance may be provided throughout the activity or intermittently. 3-Partial/Moderate Assistance-helper does LESS THAN HALF the effort. [place] lifts, holds or supports trunk or limbs, but provides less than half the effort. 2-Substantial/Maximal Assistance-helper does MORE THAN HALF the effort. [place] lifts or holds trunk or limbs and provides more than half the effort. 9-Ppvbuwciz-jnmokp does ALL the effort. Patient does none of the effort to complete the activity. Or, the assistance of 2 or more helpers is required for the patient to complete the activity. If activity was not attempted, code reason: 7-Patient Refused. 9-Not Applicable-not attempted and the patient did not perform the activity before the current illness, exacerbation or injury. 10-Not Attempted due to Environmental Limitations-(lack of equipment, weather restraints, etc.). 88-Not Attempted due to Medical Conditions or Safety Concerns. ADL PLOF Comments Pt lived by herself in house next door to her daughter's house. Pt was able to ambulate and complete ADLs independently without AD. She has a tub/shower no SC Self Care: Independent Functional Cognition: Needed Some Help OT Current Status Subjective Pt agreeable to OT Tx, daughter present. Mental Status/Objective Patient Orientation: Person, Confused Attachments: Rodriguez Catheter, IV Current Upper Extremity ROM WFL ADL-Treatment Eating (QC): 6 Shower/Bathe Self (QC): 88 Lower Body Dressing (QC): 2 On/Off Footwear (QC): 1 Other Treatments Pt's daughter provided informtaion about PLOF and home set up. OT educated pt and daughter on benefits of hip kit and tub/transfer bench, daughter verbalized understanding. Pt and daughter educated on hip precautions, and hip precautions written on board in pt's room. Pt's daughter plans to bring clothes later today, OT plans to focus on LE dressing and AE with pt and daughter during tomorrow's tx. Post tx, pt in recliner, call light in reach and all need met. Education OT Patient Education: Correct positioning, Energy conservation, Modified ADL techniques, Progress toward Goal/Update tx plan, Purpose of tx/functional activities, Rehab process Teaching Recipient: Patient Teaching Methods: Discussion Response to Teaching: Verbalize Understanding OT Agent Goals [facility] Goals Time Frame: Jun 04, 2022 Eating (QC): 6 Oral Hygiene (QC): 6 Toileting Hygiene (QC): 4 Shower/Bathe Self (QC): 4 Upper Body Dressing (QC): 5 Lower Body Dressing (QC): 4 On/Off Footwear (QC): 4 Additional Goals: 1-Demonstrate ADL Tasks, 2-Verbalize Understanding, 3-ImproveStrength/Armand 1=Demonstrate adherence to instructed precautions during ADL tasks. 2=Patient will verbalize/demonstrate understanding of assistive devices/modifications for ADL. 3=Patient will improve strength/tolerance for activity to enable patient to perform ADL's. OT Education/Plan Problem List/Assessment Assessment: Decreased Activ Tolerance, Decreased Safety Aware, Decreased UE Strength, Impaired Cognition, Impaired Funct Balance, Impaired I ADL's Discharge Recommendations Plan/Recommendations: Continue POC Equpiment Recommendations-D/C: Extended Bath Bench, Hip Kit Barriers to Progress Pt's history of dementia may impair pt's ability to recall hip precautions and retain education on AE for LE dressing. Treatment Plan/Plan of Care Patient would benefit from OT for education, treatment and training to promote independence in ADL's, mobility, safety and/or upper extremity function for ADL's. Plan of Care: ADL Retraining, Caregiver Training, Functional Mobility, UE Funct Exercise/Act Treatment Duration: Jun 04, 2022 Frequency: 3 times per week (3-5 times per week) Rehab Potential: Fair Time/GCodes Start Time: 09:44 Stop Time: 10:10 Total Time Billed (hr/min): 26 Billed Treatment Time 1, EVM (10'), ADL (16') TORI PINTO OT May 20, 2022 10:49
[2022-05-20 12:34] VITALS: BP 114/65
--- NOTE | 2022-05-20 15:05 | Physical Therapy Daily Note ---
PT Daily Note-Current Subjective Patient and daughter agree to PT. Education with patient and daughter on PWB right LE. Mental Status Patient Orientation: Confused Attachments: Rodriguez Catheter, IV Transfers SCALE: Activities may be completed with or without assistive devices. 3-Clyygocipz-xknehvj completes the activity by him/herself with no assistance from a helper. 5-Set-up or Clean-up Assistance-helper sets up or cleans up; patient completes activity. [place] assists only prior to or following the activity. 4-Supervision or Touching Assistance-helper provides verbal cues and/or touching/steadying and/or contact guard assistance as patient completes activity. Assistance may be provided throughout the activity or intermittently. 3-Partial/Moderate Assistance-helper does LESS THAN HALF the effort. [place] lifts, holds or supports trunk or limbs, but provides less than half the effort. 2-Substantial/Maximal Assistance-helper does MORE THAN HALF the effort. [place] lifts or holds trunk or limbs and provides more than half the effort. 3-Hzcvzqjwv-sudeho does ALL the effort. Patient does none of the effort to complete the activity. Or, the assistance of 2 or more helpers is required for the patient to complete the activity. If activity was not attempted, code reason: 7-Patient Refused. 9-Not Applicable-not attempted and the patient did not perform the activity before the current illness, exacerbation or injury. 10-Not Attempted due to Environmental Limitations-(lack of equipment, weather restraints, etc.). 88-Not Attempted due to Medical Conditions or Safety Concerns. Sit to Lying (QC): 1 Sit to Stand (QC): 2 Chair/Kxd-jk-Wcakt Xfer(QC): 2 Weight Bearing Right Lower Extremity: Right Partial Weight Bearing Left Lower Extremity: Left Full Weight Bearing Gait Training Distance: 30' Walk 10 feet (QC): 2 Gait Assistive Device: FWW slow, step to gait sequence with PT advancing FWW and assisting patient with PWB right LE Assessment Patient continues to have difficulty with maintaining PWB right LE, however, able to ambulate 30' with PT assist to maintain. Patient in bed with 4 rails up and alarm activated. PT Credit Charge Authorizer Goals Care Home Goals PT Credit Charge Authorizer Goals Time Frame: May 26, 2022 Roll Left & Right (QC): 4 Sit to Lying (QC): 4 Lying-Sitting on Side/Bed(QC): 4 Sit to Stand (QC): 4 Chair/Jwv-ir-Kavqv Xfer(QC): 4 Walk 10 feet (QC): 4 Walk 50ft with 2 Turns (QC): 4 PT Plan Treatment/Plan Treatment Plan: Continue Plan of Care Treatment Plan: Bed Mobility, Education, Functional Activity Armand, Functional Strength, Gait, Safety, Therapeutic Exercise, Transfers Treatment Duration: May 26, 2022 Frequency: 11 times per week Estimated Hrs Per Day: .25 hour per day Patient and/or Family Agrees t: Yes Time/GCodes Time In: 1401 Time Out: 1424 Total Billed Treatment Time: 23 Total Billed Treatment 1 visit GT x 2 23 min FLORENTINO SNIDER PT May 20, 2022 15:05
[2022-05-20 15:41] VITALS: BP 146/75
--- NOTE | 2022-05-20 15:56 | Progress Note - Hospitalist ---
Subjective HPI/CC On Admission Date Seen by Provider: May 20, 2022 Time Seen by Provider: 11:00 Maricruz Rodriguez is a 76 year old female with PMH HTN, dementia, who presented after a fall. She lives by herself in a home close to her daughter. She was found down on the floor this morning after a fall. She was found to have a hip fracture. She was seen following her surgery. She is having some pain. She was able to stand up with therapy after the surgery. She is eating her dinner now. Her appetite is good. She denies fevers and chills. She denies chest pain and shortness of breath. She denies nausea and vomiting. Subjective/Events-last exam She is sitting in her chair. She has a bit of pain in her hip. She has no other complaints. Objective Exam Vital Signs Vital Signs Date Time Temp Pulse Resp B/P (MAP) Pulse Ox O2 Delivery O2 Flow Rate FiO2 05/20/22 15:41 36.1 91 20 146/75 (98) 95 Room Air 05/20/22 06:37 0.00 Capillary Refill : Less Than 3 SecondsLess Than 3 Seconds General Appearance: No Apparent Distress, WD/WN Respiratory: Lungs Clear, No Respiratory Distress Cardiovascular: Regular Rate, Rhythm, No Murmur Gastrointestinal: Normal Bowel Sounds, Soft Extremity: Normal Inspection, No Pedal Edema Neurologic/Psychiatric: Alert, Normal Mood/Affect Results/Procedures Lab Laboratory Tests 05/20/22 05:32 Patient resulted labs reviewed. Imaging: Reviewed Imaging Report Assessment/Plan Assessment and Plan Assess & Plan/Chief Complaint Hip fracture Fall Orthopedic surgery following s/p surgical repair 05/19 PT/OT IRF evaluation Incentive spirometry Pain regimen Bowel regimen HTN Dementia Continue home meds DVT prophylaxis: Lovenox Diagnosis/Problems Diagnosis/Problems (1) Fracture of femoral neck, right, closed Status: Acute Qualifiers: Encounter type: initial encounter Qualified Codes: S72.001A - Fracture of unspecified part of neck of right femur, initial encounter for closed fracture (2) Fall on same level Status: Acute Qualifiers: Encounter type: initial encounter Qualified Codes: W18.30XA - Fall on same level, unspecified, initial encounter (3) Hypertension Status: Chronic Qualifiers: Hypertension type: primary hypertension Qualified Codes: I10 - Essential (primary) hypertension (4) Dementia Status: Chronic JUDIE WELSH MD May 20, 2022 15:56
[2022-05-20 19:18] VITALS: BP 162/72
[2022-05-20] MEDS: DONEPEZIL 10 MG (ARICEPT) TAB PO SCH (19:58)
[2022-05-21 00:08] VITALS: BP 136/65
[2022-05-21 04:09] VITALS: BP 145/67
[2022-05-21 05:42] LABS: HEMATOCRIT 27 % (35-52); HEMOGLOBIN 9.1 g/dL (11.5-16.0); MEAN CORPUSCULAR HEMOGLOBIN 32 pg (25-34); MEAN CORPUSCULAR HGB CONC 34 g/dL (32-36); MEAN CORPUSCULAR VOLUME 96 fL (80-99); MEAN PLATELET VOLUME 10.5 fL (9.0-12.2); PLATELET COUNT 185 10^3/uL (130-400); WHITE BLOOD COUNT 11.4 10^3/uL (4.3-11.0)
[2022-05-21 05:55] LABS: CALCIUM 7.7 MG/DL (8.5-10.1); CREATININE SERUM 0.63 MG/DL (0.60-1.30); MAGNESIUM 1.8 MG/DL (1.6-2.4); POTASSIUM 3.9 MMOL/L (3.6-5.0)
[2022-05-21] MEDS: MAGNESIUM 1 GM/100 ML IVPB 100 ML IV SCH (05:59)
[2022-05-21] MEDS: POTASSIUM CL 10MEQ/50ML IVPB 50 ML IV SCH (05:59)
[2022-05-21] MEDS: KCL 20 MEQ TAB (K-DUR) PO SCH (05:59)
[2022-05-21] MEDS: LACTATED RINGERS 1,000 ML IV SCH (06:01)
--- NOTE | 2022-05-21 07:03 | Progress Note ---
Standard Progress Note Progress Notes/Assess & Plan Date Seen by a Provider: May 21, 2022 Time Seen by a Provider: 07:03 Progress/Assessment & Plan no complaints Radiographs--HW well positioned without fracture RLE--dressing intact. Intact DF and PF of toes and ankle 2 plus DP pulse with brisk cap refill s/p R hip biopolar mobilize as able Final Diagnosis no complaints Vital Signs Date Time Temp Pulse Resp B/P (MAP) Pulse Ox O2 Delivery O2 Flow Rate FiO2 05/21/22 04:09 37.1 93 18 145/67 (93) 95 Room Air 05/21/22 00:08 37.0 98 18 136/65 (88) 97 Room Air 05/20/22 20:00 Room Air 05/20/22 19:18 36.0 95 20 162/72 (102) 96 Room Air 05/20/22 15:41 36.1 91 20 146/75 (98) 95 Room Air 05/20/22 12:34 37.0 99 19 114/65 (81) 95 Room Air 05/20/22 08:23 36.7 94 18 151/79 (103) 91 Room Air 05/20/22 07:25 Room Air I & O 05/21/22 06:59 Intake Total 2590 ml Output Total 1675 ml Balance 915 ml Laboratory Tests Test 05/21/22 05:16 Range/Units White Blood Count 11.4 H 4.3-11.0 10^3/uL Red Blood Count 2.81 L 3.80-5.11 10^6/uL Hemoglobin 9.1 L 11.5-16.0 g/dL Hematocrit 27 L 35-52 % Mean Corpuscular Volume 96 80-99 fL Mean Corpuscular Hemoglobin 32 25-34 pg Mean Corpuscular Hemoglobin Concent 34 32-36 g/dL Red Cell Distribution Width 12.4 10.0-14.5 % Platelet Count 185 130-400 10^3/uL Mean Platelet Volume 10.5 9.0-12.2 fL Sodium Level 138 135-145 MMOL/L Potassium Level 3.9 3.6-5.0 MMOL/L Chloride Level 106 98-107 MMOL/L Carbon Dioxide Level 23 21-32 MMOL/L Anion Gap 9 5-14 MMOL/L Blood Urea Nitrogen 9 7-18 MG/DL Creatinine 0.63 0.60-1.30 MG/DL Estimat Glomerular Filtration Rate 92 BUN/Creatinine Ratio 14 Glucose Level 115 H 70-105 MG/DL Calcium Level 7.7 L 8.5-10.1 MG/DL Magnesium Level 1.8 1.6-2.4 MG/DL R hip incision clean and dry no calf tenderness s/p R hip bipolar Dc ivf AND [place] OK TO WBAT on RLE MEREDITH PADILLA MD May 21, 2022 07:03
[2022-05-21 07:38] VITALS: BP 130/55
[2022-05-21] MEDS: MEMANTINE 10 MG (NAMENDA) TABLET PO SCH ×2 (08:06→21:03)
[2022-05-21] MEDS: SENNOSIDES 8.6 MG (SENOKOT) TAB PO SCH ×2 (08:06→21:03)
[2022-05-21] MEDS: ASPIRIN E.C. 81 MG (ECOTRIN) TAB PO SCH (08:06)
[2022-05-21] MEDS: DOCUSATE SODIUM 100 MG (COLACE) CAP PO SCH ×2 (08:06→21:03)
[2022-05-21] MEDS: LOSARTAN 25 MG (COZAAR) TAB PO SCH (08:06)
[2022-05-21] MEDS: ENOXAPARIN 40 MG/0.4 ML (LOVENOX) SYR SC SCH (08:06)
--- NOTE | 2022-05-21 09:31 | Physical Therapy Daily Note ---
PT Daily Note-Current Subjective Patient agrees to PT. Daughter present. Pain Numeric Pain Scale: 5-Moderate Pain Location: Right Location Body Site: Hip Pain Description: Acute Comment: FLACC Section J - Health Conditions 1. Rarely or not at all 2. Occasionally 3. Frequently 4. Almost constantly 8. Unable to answer Pain Effect on Sleep: 2 Pain Interference with Therapy: 2 Pain Interference w/Day-to-Day: 2 Mental Status Patient Orientation: Person, Confused, Time Transfers SCALE: Activities may be completed with or without assistive devices. 8-Trcfewlhvx-permjis completes the activity by him/herself with no assistance from a helper. 5-Set-up or Clean-up Assistance-helper sets up or cleans up; patient completes activity. [place] assists only prior to or following the activity. 4-Supervision or Touching Assistance-helper provides verbal cues and/or touching/steadying and/or contact guard assistance as patient completes activity. Assistance may be provided throughout the activity or intermittently. 3-Partial/Moderate Assistance-helper does LESS THAN HALF the effort. [place] lifts, holds or supports trunk or limbs, but provides less than half the effort. 2-Substantial/Maximal Assistance-helper does MORE THAN HALF the effort. [place] lifts or holds trunk or limbs and provides more than half the effort. 3-Dqusdlmcg-gbaepw does ALL the effort. Patient does none of the effort to complete the activity. Or, the assistance of 2 or more helpers is required for the patient to complete the activity. If activity was not attempted, code reason: 7-Patient Refused. 9-Not Applicable-not attempted and the patient did not perform the activity before the current illness, exacerbation or injury. 10-Not Attempted due to Environmental Limitations-(lack of equipment, weather restraints, etc.). 88-Not Attempted due to Medical Conditions or Safety Concerns. Lying to Sitting/Side of Bed(Q: 2 Sit to Stand (QC): 2 Chair/Fiq-hs-Jyrsh Xfer(QC): 3 Toilet Transfer (QC): 3 Weight Bearing Right Lower Extremity: Right Weight Bearing/Tolerated Left Lower Extremity: Left Full Weight Bearing Physician changed weight bearing status to WBAT right LE Gait Training Distance: 75' Walk 10 feet (QC): 3 Walk 50 ft with 2 Turns(QC): 3 Gait Assistive Device: FWW very slow, step to gait sequence with VC's and PT assist for body placement in FWW due to extended UE's Exercises Supine Ex: Ankle pumps, Heel Slides Supine Reps: 12 (AAROM) Seated Therapy Exercises: Ankle pumps, Long arc quads Seated Reps: 12 Assessment Patient progressing slowly with treatment. Patient is now WBAT right LE allowing increase in safe activity. Patient's dementia may be a barrier with rehab potential and location of dismissal. Good family support. PT Envelope Sealer Goals Half-Way Goals PT Envelope Sealer Goals Time Frame: May 26, 2022 Roll Left & Right (QC): 4 Sit to Lying (QC): 4 Lying-Sitting on Side/Bed(QC): 4 Sit to Stand (QC): 4 Chair/Aao-ft-Bleoe Xfer(QC): 4 Walk 10 feet (QC): 4 Walk 50ft with 2 Turns (QC): 4 PT Plan Treatment/Plan Treatment Plan: Continue Plan of Care Treatment Plan: Bed Mobility, Education, Functional Activity Armand, Functional Strength, Gait, Safety, Therapeutic Exercise, Transfers Treatment Duration: May 26, 2022 Frequency: 11 times per week Estimated Hrs Per Day: .25 hour per day Patient and/or Family Agrees t: Yes Time/GCodes Time In: 806 Time Out: 830 Total Billed Treatment Time: 24 Total Billed Treatment 1 visit EX 9 min GT 15 min FLORENTINO SNIDER PT May 21, 2022 09:31
--- NOTE | 2022-05-21 10:28 | Occupational Ther Daily Note ---
OT Current Status-Daily Note Subjective Pt in shower with daughter and nursing staff, agreeable to OT tx. ADL-Treatment Therapy Code Descriptions/Definitions Functional [place] Measure: 0=Not Assessed/NA 4=Minimal Assistance 1=Total Assistance 5=Supervision or Setup 2=Maximal Assistance 6=Modified [place] 3=Moderate Assistance 7=Complete IndependenceSCALE: Activities may be completed with or without assistive devices. 0-Xjjjteuziv-xnlgzjd completes the activity by him/herself with no assistance from a helper. 5-Set-up or Clean-up Assistance-helper sets up or cleans up; patient completes activity. [place] assists only prior to or following the activity. 4-Supervision or Touching Assistance-helper provides verbal cues and/or baron bebe/steadying and/or contact guard assistance as patient completes activity. Assistance may be provided throughout the activity or intermittently. 3-Partial/Moderate Assistance-helper does LESS THAN HALF the effort. [place] lifts, holds or supports trunk or limbs, but provides less than half the effort. 2-Substantial/Maximal Assistance-helper does MORE THAN HALF the effort. [place] lifts or holds trunk or limbs and provides more than half the effort. 2-Xguzhbgjg-vrybao does ALL the effort. Patient does none of the effort to complete the activity. Or, the assistance of 2 or more helpers is required for the patient to complete the activity. If activity was not attempted, code reason: 7-Patient Refused. 9-Not Applicable-not attempted and the patient did not perform the activity before the current illness, exacerbation or injury. 10-Not Attempted due to Environmental Limitations-(lack of equipment, weather restraints, etc.). 88-Not Attempted due to Medical Conditions or Safety Concerns. Shower/Bathe Self (QC): 1 (Per nursing staff, pt able to wash periarea. Assist x2 in stand to wash/dry buttocks.) Upper Body Dressing (QC): 2 (Max A with button up house gown.) Lower Body Dressing (QC): 1 (assist x2 in stand for pant hike.) On/Off Footwear: 2 (Max A with AE.) Other Treatment Pt in shower, assist x2 required to injection moulding machine operator order to wash/dry buttocks and for pant hike. Pt required max A for sit to stand from MO, then used FWW to transfer to recliner at bathroom doorway. OT educated pt and daughter on AE for LE dressing. Pt able to thread BLEs in/out of brief using dressing stick, max verbal cues and moderate assistance. Pt then able to don gripper socks using sock aide with max A and max verbal cues. Pt required frequent cues with ADLs in order to follow hip precautions, poor carryover during tx. Post tx, pt in recliner, call light in reach and all needs met. Education OT Patient Education: Correct positioning, Energy conservation, Modified ADL techniques, Progress toward Goal/Update tx plan, Purpose of tx/functional activities, Reviewed precautions, Rehab process Teaching Recipient: Patient, Family Teaching Methods: Demonstration, Discussion Response to Teaching: Verbalize Understanding, Reinforcement Needed OT Solar Energy Systems Engineer Goals [facility] Goals Time Frame: Jun 04, 2022 Eating (QC): 6 Oral Hygiene (QC): 6 Toileting Hygiene (QC): 4 Shower/Bathe Self (QC): 4 Upper Body Dressing (QC): 5 Lower Body Dressing (QC): 4 On/Off Footwear (QC): 4 Additional Goals: 1-Demonstrate ADL Tasks, 2-Verbalize Understanding, 3- ImproveStrength/Armand 1=Demonstrate adherence to instructed precautions during ADL tasks. 2=Patient will verbalize/demonstrate understanding of assistive devices/modifications for ADL. 3=Patient will improve strength/tolerance for activity to enable patient to perform ADL's. OT Education/Plan Problem List/Assessment Assessment: Decreased Activ Tolerance, Decreased Safety Aware, Decreased UE Strength, Impaired Cognition, Impaired Funct Balance, Impaired I ADL's, Impaired Self-Care Skills Discharge Recommendations Plan/Recommendations: Continue POC Treatment Plan/Plan of Care Patient would benefit from OT for education, treatment and training to promote independence in ADL's, mobility, safety and/or upper extremity function for ADL's. Plan of Care: ADL Retraining, Caregiver Training, Functional Mobility, UE Funct Exercise/Act Treatment Duration: Jun 04, 2022 Frequency: 3 times per week (3-5 times per week) Rehab Potential: Fair Time/GCodes Start Time: 09:40 Stop Time: 10:13 Total Time Billed (hr/min): 33 Billed Treatment Time 1, ADL 2 TORI PINTO OT May 21, 2022 10:28
[2022-05-21 11:48] VITALS: BP 104/62
--- NOTE | 2022-05-21 13:38 | Physical Therapy Daily Note ---
PT Daily Note-Current Subjective Patient agrees to PT but wants to go to bed. Pain Section J - Health Conditions 1. Rarely or not at all 2. Occasionally 3. Frequently 4. Almost constantly 8. Unable to answer Pain Effect on Sleep: 2 Pain Interference with Therapy: 2 Pain Interference w/Day-to-Day: 2 Mental Status Patient Orientation: Person, Time Transfers SCALE: Activities may be completed with or without assistive devices. 5-Qvljdrziry-dceyqcb completes the activity by him/herself with no assistance from a helper. 5-Set-up or Clean-up Assistance-helper sets up or cleans up; patient completes activity. [place] assists only prior to or following the activity. 4-Supervision or Touching Assistance-helper provides verbal cues and/or touching/steadying and/or contact guard assistance as patient completes activity. Assistance may be provided throughout the activity or intermittently. 3-Partial/Moderate Assistance-helper does LESS THAN HALF the effort. [place] lifts, holds or supports trunk or limbs, but provides less than half the effort. 2-Substantial/Maximal Assistance-helper does MORE THAN HALF the effort. [place] lifts or holds trunk or limbs and provides more than half the effort. 7-Iaunzvdtn-jprola does ALL the effort. Patient does none of the effort to complete the activity. Or, the assistance of 2 or more helpers is required for the patient to complete the activity. If activity was not attempted, code reason: 7-Patient Refused. 9-Not Applicable-not attempted and the patient did not perform the activity before the current illness, exacerbation or injury. 10-Not Attempted due to Environmental Limitations-(lack of equipment, weather restraints, etc.). 88-Not Attempted due to Medical Conditions or Safety Concerns. Sit to Lying (QC): 1 Sit to Stand (QC): 2 Weight Bearing Right Lower Extremity: Right Weight Bearing/Tolerated Left Lower Extremity: Left Full Weight Bearing Physician changed weight bearing status to WBAT right LE Gait Training Distance: 55' Walk 10 feet (QC): 3 Walk 50 ft with 2 Turns(QC): 3 Gait Assistive Device: FWW VC's for body placement in FWW with step to gait pattern Exercises Supine Ex: Ankle pumps, Heel Slides Supine Reps: 12 (AAROM) Seated Therapy Exercises: Long arc quads Seated Reps: 12 Assessment Patient very fatigued and returned to bed with 4 rails up and bed alarm activated for patient safety. Patient progressing very slowly with functional strength and mobility. PT Roof Designer Goals Roof Designer Goals PT [facility] Goals Time Frame: May 26, 2022 Roll Left & Right (QC): 4 Sit to Lying (QC): 4 Lying-Sitting on Side/Bed(QC): 4 Sit to Stand (QC): 4 Chair/Obs-zq-Usmtq Xfer(QC): 4 Walk 10 feet (QC): 4 Walk 50ft with 2 Turns (QC): 4 PT Plan Treatment/Plan Treatment Plan: Continue Plan of Care Treatment Plan: Bed Mobility, Education, Functional Activity Armand, Functional Strength, Gait, Safety, Therapeutic Exercise, Transfers Treatment Duration: May 26, 2022 Frequency: 11 times per week Estimated Hrs Per Day: .25 hour per day Patient and/or Family Agrees t: Yes Time/GCodes Time In: 1300 Time Out: 1323 Total Billed Treatment Time: 23 Total Billed Treatment 1 visit EX 9 min GT 14 min FLORENTINO SNIDER PT May 21, 2022 13:38
[2022-05-21 15:30] VITALS: BP 133/60
--- NOTE | 2022-05-21 18:16 | Progress Note - Hospitalist ---
Subjective HPI/CC On Admission Date Seen by Provider: May 21, 2022 Time Seen by Provider: 10:30 Maricruz Rodriguez is a 76 year old female with PMH HTN, dementia, who presented after a fall. She lives by herself in a home close to her daughter. She was found down on the floor this morning after a fall. She was found to have a hip fracture. She was seen following her surgery. She is having some pain. She was able to stand up with therapy after the surgery. She is eating her dinner now. Her appetite is good. She denies fevers and chills. She denies chest pain and shortness of breath. She denies nausea and vomiting. Subjective/Events-last exam She is sitting in her chair. She has been up with therapy already. She is feeling well. She has no complaints. Objective Exam Vital Signs Vital Signs Date Time Temp Pulse Resp B/P (MAP) Pulse Ox O2 Delivery O2 Flow Rate FiO2 05/21/22 15:30 36.4 85 20 133/60 (84) 95 Room Air 05/20/22 06:37 0.00 Capillary Refill : Less Than 3 SecondsLess Than 3 Seconds General Appearance: No Apparent Distress, WD/WN Respiratory: Lungs Clear, No Respiratory Distress Cardiovascular: Regular Rate, Rhythm, Systolic Murmur Gastrointestinal: Normal Bowel Sounds, Non Tender, Soft Extremity: Normal Inspection, No Pedal Edema Neurologic/Psychiatric: Alert, Normal Mood/Affect Skin: Normal Color, Warm/Dry Results/Procedures Lab Laboratory Tests 05/21/22 05:16 Patient resulted labs reviewed. Imaging: Reviewed Imaging Report Assessment/Plan Assessment and Plan Assess & Plan/Chief Complaint Hip fracture Fall Orthopedic surgery following s/p surgical repair 05/19 PT/OT Incentive spirometry Pain regimen Bowel regimen Likely discharge to inpatient rehab Tuesday Postoperative anemia due to expected blood loss Hgb 9, monitor HTN Dementia Continue home meds DVT prophylaxis: Lovenox Diagnosis/Problems Diagnosis/Problems (1) Fracture of femoral neck, right, closed Status: Acute Qualifiers: Encounter type: initial encounter Qualified Codes: S72.001A - Fracture of unspecified part of neck of right femur, initial encounter for closed fracture (2) Fall on same level Status: Acute Qualifiers: Encounter type: initial encounter Qualified Codes: W18.30XA - Fall on same level, unspecified, initial encounter (3) Hypertension Status: Chronic Qualifiers: Hypertension type: primary hypertension Qualified Codes: I10 - Essential (primary) hypertension (4) Dementia Status: Chronic JUDIE WELSH MD May 21, 2022 18:16
[2022-05-21 19:04] VITALS: BP 126/59
[2022-05-21] MEDS: DONEPEZIL 10 MG (ARICEPT) TAB PO SCH (21:03)
[2022-05-21] MEDS: HYDROcodone/APAP 7.5 MG/325 MG (LORTAB, LORCET PLUS) TABLET PO PRN (21:03)
[2022-05-22 00:12] VITALS: BP 109/57
[2022-05-22 04:00] VITALS: BP 107/58
[2022-05-22 05:51] LABS: HEMATOCRIT 26 % (35-52); HEMOGLOBIN 8.8 g/dL (11.5-16.0); MEAN CORPUSCULAR HEMOGLOBIN 33 pg (25-34); MEAN CORPUSCULAR HGB CONC 34 g/dL (32-36); MEAN CORPUSCULAR VOLUME 97 fL (80-99); PLATELET COUNT 238 10^3/uL (130-400); WHITE BLOOD COUNT 10.2 10^3/uL (4.3-11.0)
[2022-05-22 06:09] LABS: CALCIUM 7.8 MG/DL (8.5-10.1); CREATININE SERUM 0.65 MG/DL (0.60-1.30); MAGNESIUM 1.9 MG/DL (1.6-2.4); POTASSIUM 3.9 MMOL/L (3.6-5.0)
[2022-05-22] MEDS: POTASSIUM CL 10MEQ/50ML IVPB 50 ML IV SCH (06:17)
[2022-05-22] MEDS: KCL 20 MEQ TAB (K-DUR) PO SCH (06:17)
[2022-05-22] MEDS: MAGNESIUM 1 GM/100 ML IVPB 100 ML IV SCH (06:17)
[2022-05-22 07:30] VITALS: BP 131/61
[2022-05-22] MEDS: ASPIRIN E.C. 81 MG (ECOTRIN) TAB PO SCH (09:42)
[2022-05-22] MEDS: ENOXAPARIN 40 MG/0.4 ML (LOVENOX) SYR SC SCH (09:42)
[2022-05-22] MEDS: MEMANTINE 10 MG (NAMENDA) TABLET PO SCH ×2 (09:42→20:38)
[2022-05-22] MEDS: DOCUSATE SODIUM 100 MG (COLACE) CAP PO SCH ×2 (09:42→20:38)
[2022-05-22] MEDS: LOSARTAN 25 MG (COZAAR) TAB PO SCH (09:42)
[2022-05-22] MEDS: HYDROcodone/APAP 7.5 MG/325 MG (LORTAB, LORCET PLUS) TABLET PO PRN ×2 (09:53→18:37)
[2022-05-22] MEDS: SENNOSIDES 8.6 MG (SENOKOT) TAB PO SCH ×2 (09:54→20:38)
--- NOTE | 2022-05-22 10:07 | Physical Therapy Daily Note ---
PT Daily Note-Current Subjective Pt supine in bed upon arrival to room, agreeable to PT treatment. Pain Section J - Health Conditions 1. Rarely or not at all 2. Occasionally 3. Frequently 4. Almost constantly 8. Unable to answer Pain Effect on Sleep: 2 Pain Interference with Therapy: 2 Pain Interference w/Day-to-Day: 2 Appearance Pt up in chair with chair alarm set and BLE elevated following session. Call light, phone and tray table all within reach. Mental Status Patient Orientation: Confused Transfers SCALE: Activities may be completed with or without assistive devices. 2-Livqnayblk-wiadgwj completes the activity by him/herself with no assistance from a helper. 5-Set-up or Clean-up Assistance-helper sets up or cleans up; patient completes activity. [place] assists only prior to or following the activity. 4-Supervision or Touching Assistance-helper provides verbal cues and/or touching/steadying and/or contact guard assistance as patient completes activity. Assistance may be provided throughout the activity or intermittently. 3-Partial/Moderate Assistance-helper does LESS THAN HALF the effort. [place] lifts, holds or supports trunk or limbs, but provides less than half the effort. 2-Substantial/Maximal Assistance-helper does MORE THAN HALF the effort. [place] lifts or holds trunk or limbs and provides more than half the effort. 4-Ndvgioueo-qbglve does ALL the effort. Patient does none of the effort to complete the activity. Or, the assistance of 2 or more helpers is required for the patient to complete the activity. If activity was not attempted, code reason: 7-Patient Refused. 9-Not Applicable-not attempted and the patient did not perform the activity before the current illness, exacerbation or injury. 10-Not Attempted due to Environmental Limitations-(lack of equipment, weather restraints, etc.). 88-Not Attempted due to Medical Conditions or Safety Concerns. Roll Left & Right (QC): 1 Lying to Sitting/Side of Bed(Q: 1 Sit to Stand (QC): 2 dependent with bed mobility, able to advance L leg when cued, but only once with no carry over. Weight Bearing Right Lower Extremity: Right Weight Bearing/Tolerated Left Lower Extremity: Left Full Weight Bearing Physician changed weight bearing status to WBAT right LE Gait Training Distance: 10' Gait Assistive Device: FWW Assessment Current Status: Fair Progress Pt required frequent verbal cueing, tolerated treatment well this date. PT Solar Installation Manager Goals Solar Installation Manager Goals PT Solar Installation Manager Goals Time Frame: May 26, 2022 Roll Left & Right (QC): 4 Sit to Lying (QC): 4 Lying-Sitting on Side/Bed(QC): 4 Sit to Stand (QC): 4 Chair/Mib-qq-Fkzki Xfer(QC): 4 Walk 10 feet (QC): 4 Walk 50ft with 2 Turns (QC): 4 PT Plan Problem List Problem List: Activity Tolerance, Functional Strength, Safety, Balance, Gait, Transfer, Bed Mobility, ROM Treatment/Plan Treatment Plan: Continue Plan of Care Treatment Plan: Bed Mobility, Education, Functional Activity Armand, Functional Strength, Gait, Safety, Therapeutic Exercise, Transfers Treatment Duration: May 26, 2022 Frequency: 11 times per week Estimated Hrs Per Day: .25 hour per day Patient and/or Family Agrees t: Yes Time/GCodes Time In: 920 Time Out: 932 Total Billed Treatment Time: 12 Total Billed Treatment 1 visit FA (10') JEANNETTE ARCE PT May 22, 2022 10:07
[2022-05-22 12:18] VITALS: BP 106/58
[2022-05-22 16:22] VITALS: BP 116/64
--- NOTE | 2022-05-22 18:15 | Progress Note - Hospitalist ---
Subjective HPI/CC On Admission Date Seen by Provider: May 22, 2022 Time Seen by Provider: 10:45 Maricruz Rodriguez is a 76 year old female with PMH HTN, dementia, who presented after a fall. She lives by herself in a home close to her daughter. She was found down on the floor this morning after a fall. She was found to have a hip fracture. She was seen following her surgery. She is having some pain. She was able to stand up with therapy after the surgery. She is eating her dinner now. Her appetite is good. She denies fevers and chills. She denies chest pain and shortness of breath. She denies nausea and vomiting. Subjective/Events-last exam She is sitting in her chair. Her daughter is visiting. She is having some pain in her hip. She has no other complaints. Objective Exam Vital Signs Vital Signs Date Time Temp Pulse Resp B/P (MAP) Pulse Ox O2 Delivery O2 Flow Rate FiO2 05/22/22 16:22 36.7 77 16 116/64 (81) 96 Room Air 05/20/22 06:37 0.00 Capillary Refill : Less Than 3 SecondsLess Than 3 Seconds General Appearance: No Apparent Distress, WD/WN Respiratory: Lungs Clear, No Respiratory Distress Cardiovascular: Regular Rate, Rhythm, No Murmur Gastrointestinal: Normal Bowel Sounds, Soft Extremity: Normal Inspection, No Pedal Edema Neurologic/Psychiatric: Alert, Normal Mood/Affect Skin: Normal Color, Warm/Dry Results/Procedures Lab Laboratory Tests 05/22/22 05:42 Patient resulted labs reviewed. Imaging: Reviewed Imaging Report Assessment/Plan Assessment and Plan Assess & Plan/Chief Complaint Hip fracture Fall Orthopedic surgery following s/p surgical repair 05/19 PT/OT Incentive spirometry Pain regimen Bowel regimen Plan for discharge to inpatient rehab tomorrow Postoperative anemia due to expected blood loss Stable, monitor HTN Dementia Continue home meds DVT prophylaxis: Lovenox Diagnosis/Problems Diagnosis/Problems (1) Fracture of femoral neck, right, closed Status: Acute Qualifiers: Encounter type: initial encounter Qualified Codes: S72.001A - Fracture of unspecified part of neck of right femur, initial encounter for closed fracture (2) Fall on same level Status: Acute Qualifiers: Encounter type: initial encounter Qualified Codes: W18.30XA - Fall on same level, unspecified, initial encounter (3) Hypertension Status: Chronic Qualifiers: Hypertension type: primary hypertension Qualified Codes: I10 - Essential (primary) hypertension (4) Dementia Status: Chronic JUDIE WELSH MD May 22, 2022 18:15
[2022-05-22 20:18] VITALS: BP 143/67
[2022-05-22] MEDS ORDERED: ACETAMINOPHEN 325 MG TABLET ONE (20:35)
[2022-05-22] MEDS: DONEPEZIL 10 MG (ARICEPT) TAB PO SCH (20:38)
[2022-05-22] MEDS: ACETAMINOPHEN 325 MG TABLET PO SCH (20:38)
[2022-05-23] VITALS: BP 120/63
[2022-05-23 04:08] VITALS: BP 124/64
[2022-05-23 05:59] LABS: HEMATOCRIT 27 % (35-52); MEAN CORPUSCULAR HEMOGLOBIN 33 pg (25-34); MEAN CORPUSCULAR HGB CONC 33 g/dL (32-36); MEAN CORPUSCULAR VOLUME 98 fL (80-99); MEAN PLATELET VOLUME 9.8 fL (9.0-12.2); PLATELET COUNT 302 10^3/uL (130-400); WHITE BLOOD COUNT 8.4 10^3/uL (4.3-11.0)
[2022-05-23 06:12] LABS: CALCIUM 7.9 MG/DL (8.5-10.1); CREATININE SERUM 0.65 MG/DL (0.60-1.30); MAGNESIUM 1.9 MG/DL (1.6-2.4); POTASSIUM 3.8 MMOL/L (3.6-5.0)
[2022-05-23] MEDS: KCL 20 MEQ TAB (K-DUR) PO SCH (06:14)
[2022-05-23] MEDS: POTASSIUM CL 10MEQ/50ML IVPB 50 ML IV SCH (06:14)
[2022-05-23] MEDS: MAGNESIUM 1 GM/100 ML IVPB 100 ML IV SCH (06:14)
[2022-05-23 07:11] VITALS: BP 159/76
[2022-05-23] MEDS: DOCUSATE SODIUM 100 MG (COLACE) CAP PO SCH (08:04)
[2022-05-23] MEDS: ENOXAPARIN 40 MG/0.4 ML (LOVENOX) SYR SC SCH (08:04)
[2022-05-23] MEDS: ASPIRIN E.C. 81 MG (ECOTRIN) TAB PO SCH (08:04)
[2022-05-23] MEDS: LOSARTAN 25 MG (COZAAR) TAB PO SCH (08:04)
[2022-05-23] MEDS: HYDROcodone/APAP 7.5 MG/325 MG (LORTAB, LORCET PLUS) TABLET PO PRN (08:04)
[2022-05-23] MEDS: SENNOSIDES 8.6 MG (SENOKOT) TAB PO SCH (08:04)
[2022-05-23] MEDS: MEMANTINE 10 MG (NAMENDA) TABLET PO SCH (08:05)
[2022-05-23] MEDS: ACETAMINOPHEN 325 MG TABLET PO SCH (08:05)
[2022-05-23 11:41] VITALS: BP 159/76
--- NOTE | 2022-05-23 17:14 | Discharge Summary ---
Discharge Summary Hospital Course Problems/Dx: (1) Fracture of femoral neck, right, closed Status: Acute Qualifiers: Qualified Codes: S72.001A - Fracture of unspecified part of neck of right femur, initial encounter for closed fracture (2) Fall on same level Status: Acute Qualifiers: Qualified Codes: W18.30XA - Fall on same level, unspecified, initial encoun ter (3) Hypertension Status: Chronic Qualifiers: Qualified Codes: I10 - Essential (primary) hypertension (4) Dementia Status: Chronic Hospital Course Date of Admission: May 18, 2022 at 13:42 Admission Diagnosis : Hip fracture Family Physician/Provider: Kenji Sanches DO Date of Discharge: 05/23/22 Discharge Diagnosis: Hip fracture Hospital Course: Maricruz Rodriguez is a 76 year old female with PMH HTN, dementia, who presented after a fall with a hip fracture. Orthopedic surgery was consulted and she underwent surgical repair. She had some mild, expected postoperative anemia but did not require any blood transfusions. She did well with therapy and was improving each day. .She was transferred to inpatient rehab for ongoing therapy needs. She plans to return home after with family support. Labs and Pending Lab Test: Laboratory Tests 05/23/22 05:16: White Blood Count 8.4, Red Blood Count 2.77L, Hemoglobin 9.0L, Hematocrit 27L, Mean Corpuscular Volume 98, Mean Corpuscular Hemoglobin 33, Mean Corpuscular Hemoglobin Concent 33, Red Cell Distribution Width 12.6, Platelet Count 302, Mean Platelet Volume 9.8, Sodium Level 137, Potassium Level 3.8, Chloride Level 104, Carbon Dioxide Level 24, Anion Gap 9, Blood Urea Nitrogen 16, Creatinine 0.65, Estimat Glomerular Filtration Rate 92, BUN/Creatinine Ratio 25, Glucose Level 88, Calcium Level 7.9L, Magnesium Level 1.9 Microbiology 05/19/22 MRSA Screen - Final, Complete MRSA not isolated Home Meds Active Reported Donepezil HCl 10 Mg Tablet 10 Mg PO HS LAST FILLED 02-25-2022 #30 DAY SUPPLY Memantine HCl 10 Mg Tablet 10 Mg PO BID Losartan Potassium 25 Mg Tablet 25 Mg PO DAILY Assessment/Pt Instructions See instructions Discharge Planning: >30 minutes discharge planning Discharge Instructions Discharge Diet: No Restrictions Activity as Tolerated: Yes Consultations Orthopedic surgery Discharge Physical Examination Vital Signs Vital Signs Date Time Temp Pulse Resp B/P (MAP) Pulse Ox O2 Delivery O2 Flow Rate FiO2 05/23/22 11:41 36.9 70 16 159/76 94 Room Air 0.00 General Appearance: No Apparent Distress, WD/WN Respiratory: Lungs Clear, No Respiratory Distress Cardiovascular: Regular Rate, Rhythm, No Murmur Gastrointestinal: Normal Bowel Sounds, Soft Extremity: Normal Inspection, No Pedal Edema Neurologic/Psychiatric: Alert, Normal Mood/Affect Allergies: Coded Allergies: No Known Drug Allergies (Unverified , 05/18/22) Discharge Summary Date of Admission May 18, 2022 at 13:42 Date of Discharge May 23, 2022 at 11:43 Discharge Date: May 23, 2022 Discharge Time: 11:43 Admission Diagnosis Hip fracture Consults/Procedures Consulations Orthopedic surgery Discharge Diagnosis Hip fracture Fall Postoperative anemia due to expected blood loss HTN Dementia (1) Fracture of femoral neck, right, closed Status: Acute Qualifiers: Qualified Codes: S72.001A - Fracture of unspecified part of neck of right femur, initial encounter for closed fracture (2) Fall on same level Status: Acute Qualifiers: Qualified Codes: W18.30XA - Fall on same level, unspecified, initial encounter (3) Hypertension Status: Chronic Qualifiers: Qualified Codes: I10 - Essential (primary) hypertension (4) Dementia Status: Chronic JUDIE WELSH MD May 23, 2022 17:11
== END 2022-05-23 11:43 | DRG 522 ==
LOC: ER 11:32 → 4TH 13:42
PROVIDERS: ADMIT Internal Medicine; ATTEND Internal Medicine
PROC: 0SRR0JZ Replacement of Right Hip Joint, Femoral Surface with Synthetic Substitute, Open Approach (ICD-10-PCS; principal; 2022-05-19 11:14)
DX: S72.001A Fracture of unspecified part of neck of right femur, initial encounter for closed fracture (principal); D62 Acute posthemorrhagic anemia; W18.30XA Fall on same level, unspecified, initial encounter; I10 Essential (primary) hypertension; F03.90 Unspecified dementia, unspecified severity, without behavioral disturbance, psychotic disturbance, mood disturbance, and anxiety
CPT/HCPCS: 36415; 51702; 70450; 71045; 72125; 73030; 73060; 73501; 73630; 80048; 80053; 82550; 83735; 85027; 86850; 86900; 86901; 87081; 94664

== ENCOUNTER 2022-05-23 11:00 | Inpatient (IN) | payer MEDICARE, OTHER ==
[~2022-05-23] VITALS: Ht 170.2 cm; Wt 68.0 kg
--- NOTE | 2022-05-23 08:41 | PM&R Post Admission Assessment ---
PM&R HP Date of Visit: May 23, 2022 Time of Visit: 16:00 History of Present Illness CC: Debility following right hip fracture with repair HPI: This is a 76yoWF who has a h/o dementia who is s/p repair of right hip fracture sustained in a fall. Patient has dementia so details are minimal. I have reviewed the post op course. Labs remain stable. Pain is controlled. Bowel regimen will be maintained and BP will be monitored. PLOF was use of walker at home. Past Pfuysgv-Hbmpyj-Uipuii Hx Past Med/Social Hx: Reviewed Nursing Past Med/Soc Hx, Reviewed and Corrections made Patient Social History Marrital Status: single Employed/Student: retired Smoking Status: Unknown if Ever Smoked Past Medical History Surgeries: Orthopedic Cardiac: Hypertension Neurological: Dementia PM&R Allergy/Meds/Data Review Allergies Coded Allergies: No Known Drug Allergies (Unverified , 05/18/22) Home Medications Scheduled Donepezil HCl (Donepezil HCl), 10 MG PO HS, (Reported) Losartan Potassium (Losartan Potassium), 25 MG PO DAILY, (Reported) Memantine HCl (Memantine HCl), 10 MG PO BID, (Reported) Current Medications Current Medications Reviewed Review of Systems Constitutional: see HPI, malaise, weakness EENTM: no symptoms reported Respiratory: no symptoms reported Cardiovascular: no symptoms reported Gastrointestinal: no symptoms reported Genitourinary: no symptoms reported Musculoskeletal: no symptoms reported Skin: no symptoms reported Psychiatric/Neurological: No Symptoms Reported All Other Systems Reviewed Negative Unless Noted: Yes Physical Exam Physical Exam Vital Signs Capillary Refill : Height, Weight, BMI Height: '" Weight: lbs. oz. kg; 28.20 BMI Method: General Appearance: No Apparent Distress, WD/WN, Chronically ill Eyes: Bilateral Eye Normal Inspection, Bilateral Eye PERRL HEENT: PERRL/EOMI, Normal ENT Inspection, Pharynx Normal Neck: Full Range of Motion, Normal Inspection, Non Tender, Supple, Carotid Bruit Respiratory: Chest Non Tender, Lungs Clear, Normal Breath Sounds, No Accessory Muscle Use, No Respiratory Distress Cardiovascular: Regular Rate, Rhythm, No Edema, No Gallop, No JVD, No Murmur, Normal Peripheral Pulses Gastrointestinal: Normal Bowel Sounds, No Organomegaly, No Pulsatile Mass, Non Tender, Soft Back: Normal Inspection, No CVA Tenderness, No Vertebral Tenderness Extremity: Normal Capillary Refill, Normal Inspection, Normal Range of Motion, Non Tender, No Calf Tenderness, No Pedal Edema Neurologic/Psychiatric: Alert, No Motor/Sensory Deficits, prepper II-XII Norm as Tested, Depressed Affect, Disoriented, Motor Weakness (right leg) Skin: Normal Color, Warm/Dry Lymphatic: No Adenopathy PM&R Medical Assessment & Plan REHAB/MEDICAL ASSESSMENT AND PLAN: REHAB IMPAIRMENT GROUP: Right hip fracture ETIOLOGIC DIAGNOSIS: Right hip fracture The comorbidities that impact the patients function and/or functional outcome by: advanced age, dementia, poor stamina, fall risk, confusion, post op anemia REHAB PLAN: The patient is being admitted to our comprehensive inpatient rehabilitation facility and can tolerate the intensity of service consisting of at least: 180 minutes of therapy a day, 5 out of 7 days a week Rehab treatment will consist of: PT OT ST will all focus on regaining function with use of assistive devices in order to regain function and return to independent living The patient/family has a good understanding of our discharge process and will benefit from an interdisciplinary inpatient rehabilitation program. The patient has potential to make improvement and is in need of at least two of the following multidisciplinary therapies including but not limited to physical, occupational, speech, and prosthetics and orthotics. Additionally the patient will need services from respiratory, nutritional services, wound care, psychology, etc. (Customize this to each patient). Given the patients complex condition and risk of further medical complications, rehabilitation services cannot be safely or effectively provided at a lower level of care such as a senior care facility. BARRIERS TO DISCHARGE: Dementia ESTIMATED LOS: 10 days DISPOSITION: Home RELEVANT CHANGES SINCE PREADMISSION SCREENING: I have compared the patients medical and functional status at the time of the preadmission screening and there are: no changes PROGNOSIS: Fair REHABILITATION GOALS: 1. PT OT ST will all focus on regaining function with use of assistive devices in order to regain function and return to independent living All the above goals were reviewed with the patient and he/she is in agreement. By signing this document, I acknowledge that I have personally performed a full physical examination on this patient within 24 hours of admission to this inpatient rehabilitation facility and have determined the patient to be able to tolerate the above course of treatment at an intensive level for a reasonable period of time. I will be completing a detailed individualized Plan of Care for this patient by day #4 of the patients stay based upon the Preadmission Screen, the Post-Admission Evaluation, and the therapy evaluations. Admission Dx/Comorbidities: (1) Fracture of femoral neck, right, closed Status: Acute ICD Codes: S72.001A - Fracture of unspecified part of neck of right femur, initial encounter for closed fracture (2) Hypertension Status: Chronic ICD Codes: I10 - Essential (primary) hypertension (3) Dementia Status: Chronic ICD Codes: F03.90 - Unspecified dementia without behavioral disturbance (4) Fall on same level Status: Acute ICD Codes: W18.30XA - Fall on same level, unspecified, initial encounter Assessment/Plan Assessment and Plan Assess & Plan/Chief Complaint Assessment: Right hip fracture s/p repair HTN Dementia Falls Post op anemia from acute blood loss Plan: Pain control Monitor hgb Fall risk PT OT CULLEN GARCIA DO May 23, 2022 08:41
[~2022-05-23 11:00] MED LIST: ACETAMINOPHEN 325 MG TABLET PO PRN; ALPRAZolam 0.25 MG (XANAX) TAB PO PRN; BISACODYL 10 MG SUPP (DULCOLAX) PR PRN; CALCIUM CARBONATE 500 MG (TUMS) TAB.CHEW PO PRN; DOCUSATE SODIUM 100 MG (COLACE) CAP PO PRN; DOCUSATE SODIUM 100 MG (COLACE) CAP PO SCH; DONE10TA41 PO; FLEET ENEMA ADULT 1 EA BTL PR PRN; LACTULOSE SYRUP 10GM/15ML (ENULOSE) 30ML UDC PO PRN; LOPERAMIDE 2 MG (IMODIUM) TABLET PO PRN; LOSA25TA41 PO; MELATONIN 3 MG TABLET PO PRN; MEMA10TA57 PO; ONDANSETRON 4 MG (ZOFRAN) ORAL DISSOLVE TAB PO PRN; diphenhydrAMINE 25 MG TAB (BENADRYL) PO PRN; guaiFENesin/CODEINE (ROBITUSSIN AC) 10ML UDC PO PRN
[2022-05-23 12:10] VITALS: BP 112/64
[2022-05-23] MEDS ORDERED: fentaNYL INJ 100 MCG/2 ML AMP IVP PRN (15:30)
[2022-05-23] MEDS ORDERED: HYDROcodone/APAP 7.5 MG/325 MG (LORTAB, LORCET PLUS) TABLET PO PRN (15:30)
[2022-05-23] MEDS ORDERED: ANTACID SUSP 30 ML UDC (MYLANTA) PO PRN (15:30)
[2022-05-23] MEDS ORDERED: diphenhydrAMINE 50 MG/ML INJ (BENADRYL) IVP PRN (15:30)
[2022-05-23] MEDS ORDERED: MILK OF MAGNESIA 400 MG/5 ML 30 ML UDC PO PRN (15:30)
[2022-05-23] MEDS ORDERED: MELATONIN 3 MG TABLET PO PRN (15:30)
[2022-05-23] MEDS ORDERED: polyethylene glycoL POWDER 17 GM (MIRALAX) PACK PO PRN (15:30)
[2022-05-23] MEDS ORDERED: LACTULOSE SYRUP 10GM/15ML (ENULOSE) 30ML UDC PO PRN (15:30)
[2022-05-23] MEDS ORDERED: TEMAZEPAM 15 MG (RESTORIL) CAP PO PRN (15:30)
[2022-05-23] MEDS ORDERED: BISACODYL 10 MG SUPP (DULCOLAX) PR PRN (15:30)
[2022-05-23] MEDS ORDERED: CALCIUM CARBONATE 500 MG (TUMS) TAB.CHEW PO PRN (15:30)
[2022-05-23] MEDS ORDERED: ONDANSETRON 4 MG (ZOFRAN) ORAL DISSOLVE TAB PO PRN (15:30)
[2022-05-23] MEDS ORDERED: hydrALAZINE (APESOLINE) 20 MG/ML VIAL IV PRN (15:30)
[2022-05-23] MEDS ORDERED: ONDANSETRON 4 MG/2 ML (SDV) Z0FRAN IVP PRN (15:30)
[2022-05-23] MEDS: polyethylene glycoL POWDER 17 GM (MIRALAX) PACK PO SCH ×2 (17:15→20:59)
[2022-05-23] MEDS: SENNA W/DOCUSATE (SENOKOT S) TABLET PO SCH ×2 (17:16→20:57)
[2022-05-23] MEDS: ENOXAPARIN 40 MG/0.4 ML (LOVENOX) SYR SC SCH (17:17)
[2022-05-23 20:09] VITALS: BP 148/62
[2022-05-23] MEDS: MEMANTINE 10 MG (NAMENDA) TABLET PO SCH (20:56)
[2022-05-23] MEDS: DONEPEZIL 10 MG (ARICEPT) TAB PO SCH (20:56)
[2022-05-23] MEDS: DOCUSATE SODIUM 100 MG (COLACE) CAP PO SCH (20:57)
[2022-05-23] MEDS: ACETAMINOPHEN 325 MG TABLET PO SCH (20:57)
[2022-05-23] MEDS: SENNOSIDES 8.6 MG (SENOKOT) TAB PO SCH (20:59)
[2022-05-24 05:51] LABS: BASOPHILS # (AUTO) 0.1 10^3/uL (0.0-0.1); BASOPHILS % (AUTO) 1 % (0-10); EOSINOPHILS # (AUTO) 0.1 10^3/uL (0.0-0.3); EOSINOPHILS % (AUTO) 1 % (0-10); HEMATOCRIT 28 % (35-52); HEMOGLOBIN 9.3 g/dL (11.5-16.0); LYMPHOCYTES % (AUTO) 24 % (12-44); MEAN CORPUSCULAR HEMOGLOBIN 33 pg (25-34); MEAN CORPUSCULAR HGB CONC 33 g/dL (32-36); MEAN CORPUSCULAR VOLUME 98 fL (80-99); MEAN PLATELET VOLUME 9.7 fL (9.0-12.2); MONOCYTES # (AUTO) 0.8 10^3/uL (0.0-1.0); MONOCYTES % (AUTO) 9 % (0-12); NEUTROPHILS # (AUTO) 5.5 10^3/uL (1.8-7.8); NEUTROPHILS % (AUTO) 65 % (42-75); PLATELET COUNT 349 10^3/uL (130-400); WHITE BLOOD COUNT 8.4 10^3/uL (4.3-11.0)
[2022-05-24 06:10] LABS: ALBUMIN 2.3 GM/DL (3.2-4.5); BILIRUBIN,TOTAL 1.4 MG/DL (0.1-1.0); CREATININE SERUM 0.71 MG/DL (0.60-1.30); POTASSIUM 4.1 MMOL/L (3.6-5.0); TOTAL PROTEIN 5.4 GM/DL (6.4-8.2)
[2022-05-24 07:29] VITALS: BP 139/65
[2022-05-24] MEDS: ASPIRIN E.C. 81 MG (ECOTRIN) TAB PO SCH (08:13)
[2022-05-24] MEDS: ACETAMINOPHEN 325 MG TABLET PO SCH ×3 (08:13→20:52)
[2022-05-24] MEDS: LOSARTAN 25 MG (COZAAR) TAB PO SCH (08:13)
[2022-05-24] MEDS: MEMANTINE 10 MG (NAMENDA) TABLET PO SCH ×2 (08:13→20:52)
[2022-05-24] MEDS: DOCUSATE SODIUM 100 MG (COLACE) CAP PO SCH ×2 (08:13→20:52)
[2022-05-24] MEDS: SENNA W/DOCUSATE (SENOKOT S) TABLET PO SCH ×2 (08:46→20:52)
[2022-05-24] MEDS: polyethylene glycoL POWDER 17 GM (MIRALAX) PACK PO SCH ×2 (08:46→19:45)
[2022-05-24] MEDS: SENNOSIDES 8.6 MG (SENOKOT) TAB PO SCH ×2 (08:46→19:45)
--- NOTE | 2022-05-24 09:03 | Occupational Therapy Eval ---
OT Evaluation-General/PLF Medical Diagnosis Admission Date May 23, 2022 at 11:00 Medical Diagnosis: s/p R hip bipolar Onset Date: May 19, 2022 Therapy Diagnosis Therapy Diagnosis: decreased ADL status Precautions Precautions/Isolations: Fall Prevention, Standard Precautions Referral Physician: Gerardo Israel Reason: Evaluation/Treatment Medical History Additional Medical History HTN, dementia Current History s/p bipolar hip replacement R 05/19/22 Social History Home: Single Level Current Living Status: Alone ADL-Prior Level of Function SCALE: Activities may be completed with or without assistive devices. 4-Zdcfrelutc-cfpggxy completes the activity by him/herself with no assistance from a helper. 5-Set-up or Clean-up Assistance-helper sets up or cleans up; patient completes activity. [place] assists only prior to or following the activity. 4-Supervision or Touching Assistance-helper provides verbal cues and/or touching/steadying and/or contact guard assistance as patient completes activity. Assistance may be provided throughout the activity or intermittently. 3-Partial/Moderate Assistance-helper does LESS THAN HALF the effort. [place] lifts, holds or supports trunk or limbs, but provides less than half the effort. 2-Substantial/Maximal Assistance-helper does MORE THAN HALF the effort. [place] lifts or holds trunk or limbs and provides more than half the effort. 0-Oafqlemux-ocvqgh does ALL the effort. Patient does none of the effort to complete the activity. Or, the assistance of 2 or more helpers is required for the patient to complete the activity. If activity was not attempted, code reason: 7-Patient Refused. 9-Not Applicable-not attempted and the patient did not perform the activity before the current illness, exacerbation or injury. 10-Not Attempted due to Environmental Limitations-(lack of equipment, weather restraints, etc.). 88-Not Attempted due to Medical Conditions or Safety Concerns. ADL PLOF Comments Pt lived by herself in house next door to her daughter's house. Pt was able to ambulate and complete ADLs independently without AD. She has a tub/shower no SC. Pt's daughter reports set up assistance required with meals at PLOF (anything requiring twisting or pinching, and cutting food). Self Care: Needed Some Help Functional Cognition: Needed Some Help DME/Equipment: Tub/Shower OT Current Status Subjective Pt in bed, requests to use bathroom, pt's daughter present. Mental Status/Objective Patient Orientation: Person, Confused, Place Acute Mental Status Change: 0 Inattention: 0 Disorganized thinkin Altered level of consciousness: 0 Current Dentures/Partials: No Hand Dominance: Right Upper Extremity ROM WFL Upper Extremity Coordination Slightly decreased. Pt and daughter report difficulty with pinching and twisting movements used with eating and opening containers. Upper Extremity Sensation WFL Upper Extremity Strength grossly 3+/5 ADL-Treatment Eating (QC): 5 (set up with cutting food and opening containers.) Oral Hygiene (QC): 4 (SBA seated at sink.) Shower/Bathe Self (QC): 3 (Mod A overall. Assist washing BLEs lower legs/feet, assist with buttocks.) Upper Body Dressing (QC): 5 Lower Body Dressing (QC): 2 (Max A with AE) On/Off Footwear (QC): 2 (Max A with AE) Toileting Hygiene (QC): 3 (Min A with posterior hyigne, and min A standing balance.) Other Treatments Pt in bed, transferred supine to sit EOB, mod A. Pt used FWW to transfer towards bathroom, pt reports unable to make it into bathroom so transferred to BSC instead. Pt completed toileting, sponge bath and dressing at toileting. Pt had difficulty recalling how to use AE from last week, requiring step by step cues and hand over hand assistance. She then transferred to w/c to complete oral care at sink. Pt then propelled w/c around ARU common area, skilled verbal cues for managing/turning w/c, and min A overall. Pt transferred to recliner. Post tx, pt in recliner,c all light in reach and all needs met. Mod A supine to sit EOB, min A sit to stand transfers, CGA-min A dynamic standing balance at Walker, and CGA stand to sit with VCs for UE placement Pt unable to recall hip precautions at the beginning and end of tx, even with education throughout tx on AE in regards to hip precautions. OT wrote precautions on pt's board for her to review throughout the day. Education OT Patient Education: Correct positioning, Modified ADL techniques, Progress toward Goal/Update tx plan, Purpose of tx/functional activities, Rehab process Teaching Recipient: Patient Teaching Methods: Discussion Response to Teaching: Verbalize Understanding OT Short Term Goals Short Term Goals Time Frame: Jun 09, 2022 Shower/bathe self: 3 Lower body dressin Putting on/taking off footwear: 3 OT Tongue And Quarter Stitcher Goals Correction Goals Time Frame: Jun 25, 2022 Acute change in mental status: 0 Inattention: 0 Disorganized thinkin Altered level of consciousness: 0 Eating (QC): 5 Oral Hygiene (QC): 6 Toileting Hygiene (QC): 6 Shower/Bathe Self (QC): 5 Upper Body Dressing (QC): 5 Lower Body Dressing (QC): 4 On/Off Footwear (QC): 4 Additional Goals: 1-Demonstrate ADL Tasks, 2-Verbalize Understanding, 3- ImproveStrength/Armand 1=Demonstrate adherence to instructed precautions during ADL tasks. 2=Patient will verbalize/demonstrate understanding of assistive devices/modifications for ADL. 3=Patient will improve strength/tolerance for activity to enable patient to perform ADL's. OT Education/Plan Problem List/Assessment Assessment: Decreased Activ Tolerance, Decreased Safety Aware, Decreased UE Strength, Impaired Cognition, Impaired Coordination, Impaired Funct Balance, Impaired I ADL's, Impaired Self-Care Skills Discharge Recommendations Plan/Recommendations: Continue POC Equpiment Recommendations-D/C: Extended Bath Bench, Hip Kit Barriers to Progress Pt's progress may be limited by history of dementia and difficulty recalling/maintaining hip precautions and AE. Treatment Plan/Plan of Care Patient would benefit from OT for education, treatment and training to promote independence in ADL's, mobility, safety and/or upper extremity function for A DL's. Plan of Care: ADL Retraining, Caregiver Training, Functional Mobility, Group Exercise/Act as Ind, UE Funct Exercise/Act Treatment Duration: Jun 25, 2022 Frequency: At least 5 of 7 days/Wk (IRF) Estimated Hrs Per Day: 1.5 hours per day Agreement: Yes Rehab Potential: Fair Time/GCodes Start Time: 07:45 Stop Time: 09:00 Total Time Billed (hr/min): 75 Billed Treatment Time 1, EVM (10'), ADL 4 (65') TORI PINTO OT May 24, 2022 09:03
--- NOTE | 2022-05-24 10:57 | ST Cognitive Linguistic Eval ---
Speech Evaluation-General Medical Diagnosis s/p Right Hip Fracture Repair Onset Date: May 19, 2022 Therapy Diagnosis Therapy Diagnosis: Impaired Neurocognitive Skills (Baseline) Precautions Precautions: Fall, Pressure Ulcer, Hip Precautions/Isolations: Fall Prevention, Standard Precautions, Pressure Ulcer Referral Referring Physician: Dr. Carrillo Reason for Referral: Evaluation/Treatment Medical History Current History The patient is a 76 year-old female with a past medical history of dementia, who presents to ARU following repair of a right hip fracture. Social History Current Living Status: Alone Speech PLF-Current Status Prior Level of Function The patient is unable to provide prior level of function information secondary to her known diagnosis of dementia. Subjective The patient was seated upright in her recliner, awake and alert upon entrance to her room by the clinician. The patient greeted the clinician appropriately and was agreeable to participation in the cognitive linguistic assessment. Language Eval: Auditory Comprehends Simple Yes/No Ques: Functional Indent/Objects Multiple Poe: Functional Follows 1-Step Commands: Functional Follows General Conversations: Moderate Language Eval: Verbal Language Completes Spontaneous Greeting: Functional Produces Auto, Serial Info: Functional Imitates Simple Words/Phrases: Functional Word Finding: Moderate Requests Basic Needs: Mild States Basic Personal Info: Functional Cognitive Patient Orientation The patient was oriented to self, location, month, day of the week, date and year with use of the in-room white board. Objective Cognitive Domain Attention: Mild Memory: Moderate Problem Solving: Moderate Composite Severity Rating: Moderate Clock Drawing Severity Rating: WNL Objective Formal/Standardized Tests [facility] Mental Status Exam (UMS) Results The patient demonstrated a result of +18/30 on the SLUMS correlating to a score of "dementia." Oral Motor/Speech Production The patient does not display dysarthria or apraxia of speech at this time. The patient is 100% intelligible in known and unknown contexts. Impression The patient demonstrates a neurocognitive impairment, most notably in the areas of memory. The patient does have a known, baseline diagnosis of dementia. The clinician will not provide skilled services at this time, as the patient is currently at baseline status. The clinician would provide visual cues to aid in re-orientation and recall, however, these items are present in the patient's room at this time. The patient has the in-room white board which provides orientation information and hip precautions. Additionally, the patient's family provided a note which provides the patient with information regarding her location and the rationale for her stay. At this time, speech pathology will sign off. Speech Patient Assess Expression of Ideas/Wants: Exhibits (3) Understanding Verbal Content: Usually Understands (3) Brief Interview-Mental Status: Yes Repetition of Three Words: Three (3) Temporal Orientation: Year: Correct (3) Temporal Orientation: Month: Accurate within 5 days(2) Temporal Orientation: Day: Correct (1) Recall : Wear to say "Sock": Yes,after cueing (1) Recall : Color: Yes, after cueing (1) Recall : Bed: Yes,after cueing (1) Memory/Recall Ability: That he or she is in a hsp/hsp unit Speech-Plan Treatment Plan Speech Therapy Treatment Plan: Discontinue ST (Baseline Cognition) Treatment Duration: May 24, 2022 Frequency: 1 time per week Estimated Hrs Per Day: .5 hour per day Rehab Potential: Poor Safety Risks/Education Teaching Recipient: Patient Teaching Methods: Discussion Response to Teaching: Reinforcement Needed Education Topics Provided: Results of SLUMS, Plan of Care Time Speech Therapy Time In: 09:30 Speech Therapy Time Out: 09:45 Total Billed Time: 15 Billed Treatment Time 1, GUS Villanueva May 24, 2022 10:57
--- NOTE | 2022-05-24 11:05 | PM&R Progress Note ---
Subjective HPI/CC On Admission Date Seen by Provider: May 24, 2022 Time Seen by Provider: 09:00 Subjective/Events-last exam 05/24/2022: Bowels are moving yesterday No pain 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 anything but a poor prognosis half-way Participating Review of Systems General: Fatigue, Malaise Objective Exam Vital Signs Vital Signs Date Time Temp Pulse Resp B/P (MAP) Pulse Ox O2 Delivery O2 Flow Rate FiO2 05/24/22 20:40 Room Air 05/24/22 20:35 36.6 88 24 118/64 (82) 94 Capillary Refill : General Appearance: No Apparent Distress, WD/WN, Chronically ill HEENT: PERRL/EOMI, Normal ENT Inspection, Pharynx Normal Neck: Full Range of Motion, Normal Inspection, Non Tender, Supple, Carotid Bruit Respiratory: Chest Non Tender, Lungs Clear, Normal Breath Sounds, No Accessory Muscle Use, No Respiratory Distress Cardiovascular: Regular Rate, Rhythm, No Edema, No Gallop, No JVD, No Murmur, Normal Peripheral Pulses Gastrointestinal: Normal Bowel Sounds, No Organomegaly, No Pulsatile Mass, Non Tender, Soft Back: Normal Inspection, No CVA Tenderness, No Vertebral Tenderness Extremity: Normal Capillary Refill, Normal Inspection, Normal Range of Motion, Non Tender, No Calf Tenderness, No Pedal Edema Neurologic/Psychiatric: Alert, No Motor/Sensory Deficits, 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 FIM Transfers Therapy Code Descriptions/Definitions Functional [place] Measure: 0=Not Assessed/NA 4=Minimal Assistance 1=Total Assistance 5=Supervision or Setup 2=Maximal Assistance 6=Modified [place] 3=Moderate Assistance 7=Complete IndependenceSCALE: Activities may be completed with or without assistive devices. 6-Bkembsyjem-pwlxmcx completes the activity by him/herself with no assistance from a helper. 5-Set-up or Clean-up Assistance-helper sets up or cleans up; patient completes activity. [place] assists only prior to or following the activity. 4-Supervision or Touching Assistance-helper provides verbal cues and/or touching/steadying and/or contact guard assistance as patient completes activity. Assistance may be provided throughout the activity or intermittently. 3-Partial/Moderate Assistance-helper does LESS THAN HALF the effort. [place] lifts, holds or supports trunk or limbs, but provides less than half the effort. 2-Substantial/Maximal Assistance-helper does MORE THAN HALF the effort. [place] lifts or holds trunk or limbs and provides more than half the effort. 0-Iftxvdpwm-mvhlfc does ALL the effort. Patient does none of the effort to complete the activity. Or, the assistance of 2 or more helpers is required for the patient to complete the activity. If activity was not attempted, code reason: 7-Patient Refused. 9-Not Applicable-not attempted and the patient did not perform the activity before the current illness, exacerbation or injury. 10-Not Attempted due to Environmental Limitations-(lack of equipment, weather restraints, etc.). 88-Not Attempted due to Medical Conditions or Safety Concerns. ADL-Treatment Eating (QC): 5 (set up with cutting food and opening containers.) Oral Hygiene (QC): 4 (SBA seated at sink.) Shower/Bathe Self (QC): 3 (Mod A overall. Assist washing BLEs lower legs/feet, assist with buttocks.) Upper Body Dressing (QC): 5 Lower Body Dressing (QC): 2 (Max A with AE) On/Off Footwear (QC): 2 (Max A with AE) Toileting Hygiene (QC): 3 (Min A with posterior hyigne, and min A standing balance.) Assessment/Plan Assessment and Plan Assess & Plan/Chief Complaint Assessment: Right hip fracture s/p repair HTN Dementia Falls Post op anemia from acute blood loss Plan: Pain control Monitor hgb Fall risk PT OT 05/24/2022: Monitor BP (1) Fracture of femoral neck, right, closed Status: Acute (2) Hypertension Status: Chronic (3) Dementia Status: Chronic (4) Fall on same level Status: Acute CULLEN GARCIA DO May 24, 2022 11:05
[2022-05-24] MEDS: LORATADINE (CLARITIN) 10 MG TAB PO SCH (11:45)
--- NOTE | 2022-05-24 11:51 | Physical Therapy Evaluation ---
PT Evaluation-General Medical Diagnosis Admission Date May 23, 2022 at 11:00 Medical Diagnosis: s/p Right Hip Fracture Repair Onset Date: May 19, 2022 Therapy Diagnosis Therapy Diagnosis: impaired mobility Precautions Precautions/Isolations: Fall Prevention, Standard Precautions, Pressure Ulcer Weight Bear Status Right Lower Extremity: Right Weight Bearing/Tolerated Referral Physician: Norma Carrillo DO Reason for Referral: Evaluation/Treatment Medical History Pertinent Medical History: Dementia, HTN History of Falls (past yr): Yes Prior Surgery (last 100 days): Unknown Reviewed History: Yes Social History Home: Single Level Current Living Status: Alone patient could not say whether or not she has steps to enter her home Prior Prior Level of Function SCALE: Activities may be completed with or without assistive devices. 9-Ddlenepemp-mzlrftw completes the activity by him/herself with no assistance from a helper. 5-Set-up or Clean-up Assistance-helper sets up or cleans up; patient completes activity. [place] assists only prior to or following the activity. 4-Supervision or Touching Assistance-helper provides verbal cues and/or touching/steadying and/or contact guard assistance as patient completes activity. Assistance may be provided throughout the activity or intermittently. 3-Partial/Moderate Assistance-helper does LESS THAN HALF the effort. [place] lifts, holds or supports trunk or limbs, but provides less than half the effort. 2-Substantial/Maximal Assistance-helper does MORE THAN HALF the effort. [place] lifts or holds trunk or limbs and provides more than half the effort. 3-Bpcjcpggo-bcwrya does ALL the effort. Patient does none of the effort to complete the activity. Or, the assistance of 2 or more helpers is required for the patient to complete the activity. If activity was not attempted, code reason: 7-Patient Refused. 9-Not Applicable-not attempted and the patient did not perform the activity before the current illness, exacerbation or injury. 10-Not Attempted due to Environmental Limitations-(lack of equipment, weather restraints, etc.). 88-Not Attempted due to Medical Conditions or Safety Concerns. unknown, patient cannot provide this info PT Evaluation-Current Subjective Patient in bed pre tx, agrees to PT, has 5/10 pain in right hip. Patient has a blister on her right heel and the left one is a little red, nurse notified. Pain Section J - Health Conditions 1. Rarely or not at all 2. Occasionally 3. Frequently 4. Almost constantly 8. Unable to answer Pain Effect on Sleep: 0 Pain Interference with Therapy: 2 Pain Interference w/Day-to-Day: 2 Pt/Family Goals none stated Objective Patient Orientation: Person, Confused Sensory Hand Dominance: Right Sensation Right Lower Extremit: Intact Sensation Left Lower Extremity: Intact Transfers Roll Left & Right (QC): 3 Sit to Lying (QC): 3 Lying to Sitting/Side of Bed(Q: 3 Sit to Stand (QC): 3 Chair/Smk-sd-Yjfvc Xfer(QC): 4 Toilet Transfer (QC): 4 Car Transfer (QC): 3 Patient performs rolling with min assist, supine <-> sit mod assist, sit <-> stand min assist, transfers CGA, car transfer min assist, patient needs frequent cues for positioning and safety. Patient doesn't seem to be able to understand her hip precautions. Gait Does the Patient Walk?: Yes Mode of Locomotion: Walk Anticipated Mode of Locomotion: Walk Walk 10 feet (QC): 4 Walk 50 ft with 2 Turns(QC): 4 Walk 150 ft (QC): 88 Walking 10ft/uneven surface-QC: 4 Distance: 120'x2, 60'x2 Gait Assistive Device: FWW Comments/Gait Description Patient can ambulate 120' with a rolling walker with CGA (including 50' with at least 2 turns of 90 degrees and 10' over an uneven surface), ambulation is very slow, poor foot clearance and step through especially on the left side Wheelchair Training Wheel 50 ft with 2 turns (QC): 9 Wheel 150 ft (QC): 9 Stairs #of Steps: 1 1 Step (curb) (QC): 4 4 Steps (QC): 88 12 Steps (QC): 88 Walking Assistive Device: Walker Patient can go up and down 1 step using a rolling walker with CGA, cues for foot placement, patient can be impulsive with this Balance Sitting Static: Normal Sitting Dynamic: Normal Standing Static: Fair Standing Dynamic: Fair Picking up an Object (QC): 4 (CGA using a field services manager) Special Test Comments Patient scored 16/28 on the Tinetti Assessment Tool. Treatment Seated exercises x20 (hip abd/add with YTB and ball, AP, marching), LAQ alternating for 5 min Assessment/Needs Patient in recliner post tx with nurse call, phone, tray, all needs met, chair alarm on. Rehab Potential: Fair PT Short Term Goals Short Term Goals Time Frame: May 31, 2022 Roll Left & Right: 4 (SBA) Sit to lyin (Macy) Lying to sitting on side of be: 3 (Macy) Sit to stand: 4 (CGA) Chair/kny-uy-mszkl transfer: 4 (SBA) Walk 10 feet: 4 (SBA) Walk 50 feet with two turns: 4 (SBA) Walk 150 feet: 4 (SBA) PT Surg Nurse Goals Surg Nurse Goals PT Halfway Goals Time Frame: Jun 14, 2022 Scoring Section J - Health Conditions 1. Rarely or not at all 2. Occasionally 3. Frequently 4. Almost constantly 8. Unable to answer Pain Effect on Sleep: 0 Pain Interference with Therapy: 1 Pain Interference w/Day-to-Day: 1 Roll Left to Right (QC): 6 Sit to Lying (QC): 4 (SBA) Lying-Sitting on Side/Bed(QC): 4 (SBA) Sit to Stand (QC): 4 (SBA) Chair/Ayy-kl-Syezk Xfer(QC): 5 Car Transfer (QC): 4 (SBA) Does the Patient Walk: Yes Walk 10 feet (QC): 5 Walk 10ft-Uneven Surface(QC): 5 Walk 50ft with 2 Turns (QC): 5 Walk 150 ft (QC): 5 Wheel 50 feet with 2 turns (QC: 9 Stairs (FIM): 9 # of Steps: 4 1 Step (curb) (QC): 4 (CGA) 4 Steps (QC): 4 (CGA) 12 Steps (QC): 88 Picking up an Object (QC): 4 (SBA using field services manager) PT Plan Problem List Problem List: Activity Tolerance, Functional Strength, Safety, Balance, Gait, Transfer, Bed Mobility, ROM Treatment/Plan Treatment Plan: Continue Plan of Care Treatment Plan: Bed Mobility, Education, Functional Activity Armand, Functional Strength, Group Therapy, Gait, Safety, Therapeutic Exercise, Transfers Treatment Duration: Jun 14, 2022 Frequency: At least 5 of 7 days/Wk (IRF) Estimated Hrs Per Day: 1.5 hours per day Patient and/or Family Agrees t: Yes Safety Risks/Education Patient Education: Gait Training, Transfer Techniques, Steps, Reviewed Precautions, Correct Positioning, Safety Issues Teaching Recipient: Patient Teaching Methods: Demonstration, Discussion Response to Teaching: Reinforcement Needed Discharge Recommendations Plan Patient will perform bed mobility and transfer training, balance and endurance training, functional strengthening, stair training, gait training, and education, to improve functional mobility and independence at home. Therapy Discharge Recommendati: Other, See Comments (NH) Time/GCodes Time In: 1100 Time Out: 1200 Total Billed Treatment Time: 60 Total Billed Treatment 1 visit EVM 15' EX 15' FA 30' GEORGETTE TEE PT May 24, 2022 11:51
--- NOTE | 2022-05-24 12:48 | Progress Note ---
ROLANDO ARELLANO 05/24/22 1248: Progress Note CC: Debility following right hip fracture with repair HPI: This is a 76yoWF who has a h/o dementia who is s/p repair of right hip fracture sustained in a fall. Patient has dementia so details are minimal. Bowel regimen will be maintained and BP will be monitored. PLOF was use of walker at home. Patient is lying in bed when I visited today and reports she is doing well overall. Pain is controlled. Patient complains of right shoulder discomfort. Today will provide OMM to patient for assistance with recovery ROS: General: Fatigue, Malaise Extremities: right shoulder pain Exam: General Appearance: No Apparent Distress, WD/WN, Chronically ill HEENT: PERRL/EOMI, Normal ENT Inspection, Pharynx Normal Neck: Full Range of Motion, Normal Inspection, Non Tender, Supple, Carotid Bruit Respiratory: Chest Non Tender, Lungs Clear, Normal Breath Sounds, No Accessory Muscle Use, No Respiratory Distress Cardiovascular: RRR, No Edema, No Gallop, No JVD, No Murmur, Normal Peripheral Pulses Extremity: Normal Capillary Refill, Normal Inspection, Normal Range of Motion, Non Tender, No Calf Tenderness, No Pedal Edema, hypertonic right trapezius muscle Neurologic/Psychiatric: Alert, No Motor/Sensory Deficits, Depressed Affect, Disoriented, Motor Weakness (right leg) Skin: Normal Color, Warm/Dry Lymphatic: No Adenopathy Assessment: Right hip fracture s/p repair HTN Dementia Falls Post op anemia from acute blood loss Hypertonic right trapezius muscle Plan: Soft tissue technique right trapezius NORMA GARCIA DO 05/25/22 0528: Supervisory-Addendum Brief Verification & Attestation Participated in pt care: history, MDM, physical Personally performed: exam, history, MDM, supervision of care Care discussed with: Medical Student Procedures: n/a Results interpretation: Verified all documentation Verification and Attestation of Medical Student E/M Service A medical student performed and documented this service in my presence. I reviewed and verified all information documented by the medical student and made modifications to such information, when appropriate. I personally performed the physical exam and medical decision making. Norma Garcia May 25, 2022,05:28 ROLANDO ARELLANO May 24, 2022 12:48 NORMA GARCIA DO May 25, 2022 05:28
--- NOTE | 2022-05-24 12:52 | Physical Therapy Daily Note ---
PT Daily Note-Current Subjective Patient in bed pre tx, agrees to PT, has 4-5/10 pain. Pain Section J - Health Conditions 1. Rarely or not at all 2. Occasionally 3. Frequently 4. Almost constantly 8. Unable to answer Pain Effect on Sleep: 0 Pain Interference with Therapy: 2 Pain Interference w/Day-to-Day: 2 Appearance Patient in bed post tx with nurse call, phone, tray, bed alarm on, heel protectors on. Mental Status Patient Orientation: Person, Confused Transfers SCALE: Activities may be completed with or without assistive devices. 5-Siwsuscvev-vfecgld completes the activity by him/herself with no assistance from a helper. 5-Set-up or Clean-up Assistance-helper sets up or cleans up; patient completes activity. [place] assists only prior to or following the activity. 4-Supervision or Touching Assistance-helper provides verbal cues and/or touching/steadying and/or contact guard assistance as patient completes activity. Assistance may be provided throughout the activity or intermittently. 3-Partial/Moderate Assistance-helper does LESS THAN HALF the effort. [place] lifts, holds or supports trunk or limbs, but provides less than half the effort. 2-Substantial/Maximal Assistance-helper does MORE THAN HALF the effort. [place] lifts or holds trunk or limbs and provides more than half the effort. 6-Oglctlsph-dldrre does ALL the effort. Patient does none of the effort to complete the activity. Or, the assistance of 2 or more helpers is required for the patient to complete the activity. If activity was not attempted, code reason: 7-Patient Refused. 9-Not Applicable-not attempted and the patient did not perform the activity before the current illness, exacerbation or injury. 10-Not Attempted due to Environmental Limitations-(lack of equipment, weather restraints, etc.). 88-Not Attempted due to Medical Conditions or Safety Concerns. Roll Left & Right (QC): 4 Sit to Lying (QC): 3 Lying to Sitting/Side of Bed(Q: 3 Sit to Stand (QC): 4 Chair/Acc-dw-Uyght Xfer(QC): 4 min assist for supine <-> sit Weight Bearing Right Lower Extremity: Right Weight Bearing/Tolerated Gait Training Distance: 120'x2 Walk 10 feet (QC): 4 Walk 50 ft with 2 Turns(QC): 4 Gait Persons Needed: 1 Gait Assistive Device: FWW very slow ambulation, antalgic, poor foot clearance and step through Treatments bed mobility and transfers, ambulation Assessment Current Status: Fair Progress improving ambulation PT Short Term Goals Short Term Goals Time Frame: May 31, 2022 Roll Left & Right: 4 (SBA) Sit to lyin (Macy) Lying to sitting on side of be: 3 (Macy) Sit to stand: 4 (CGA) Chair/fmz-pa-owvdd transfer: 4 (SBA) Walk 10 feet: 4 (SBA) Walk 50 feet with two turns: 4 (SBA) Walk 150 feet: 4 (SBA) PT Forest Economics Professor Goals Forest Economics Professor Goals PT Forest Economics Professor Goals Time Frame: Jun 14, 2022 Roll Left & Right (QC): 6 Sit to Lying (QC): 4 (SBA) Lying-Sitting on Side/Bed(QC): 4 (SBA) Sit to Stand (QC): 4 (SBA) Chair/Xib-qr-Ewwpl Xfer(QC): 5 Toilet Transfer (QC): 4 Car Transfer (QC): 4 (SBA) Does the Patient Walk: Yes Walk 10 feet (QC): 5 Walk 50ft with 2 Turns (QC): 5 Walk 150 ft (QC): 5 Walking 10ft on Uneven Surface: 5 1 Step (curb) (QC): 4 (CGA) 4 Steps (QC): 4 (CGA) 12 Steps (QC): 88 Picking up an Object (QC): 4 (SBA using ui designer) Wheel 50 feet with 2 turns (QC: 9 Wheel 150 feet: 9 PT Plan Problem List Problem List: Activity Tolerance, Functional Strength, Safety, Balance, Gait, Transfer, Bed Mobility, ROM Treatment/Plan Treatment Plan: Continue Plan of Care Treatment Plan: Bed Mobility, Education, Functional Activity Armand, Functional Strength, Group Therapy, Gait, Safety, Therapeutic Exercise, Transfers Treatment Duration: Jun 14, 2022 Frequency: At least 5 of 7 days/Wk (IRF) Estimated Hrs Per Day: 1.5 hours per day Patient and/or Family Agrees t: Yes Safety Risks/Education Patient Education: Gait Training, Transfer Techniques, Reviewed Precautions, Correct Positioning, Safety Issues Teaching Recipient: Patient Teaching Methods: Demonstration, Discussion Response to Teaching: Reinforcement Needed Time/GCodes Time In: 1230 Time Out: 1300 Total Billed Treatment Time: 30 Total Billed Treatment 1 visit FA 30' GEORGETTE TEE PT May 24, 2022 12:52
[2022-05-24] MEDS: ENOXAPARIN 40 MG/0.4 ML (LOVENOX) SYR SC SCH (15:38)
[2022-05-24 20:35] VITALS: BP 118/64
[2022-05-24] MEDS: DONEPEZIL 10 MG (ARICEPT) TAB PO SCH (20:52)
--- NOTE | 2022-05-25 05:50 | PM&R Progress Note ---
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 Review of Systems General: Fatigue, Malaise Neurological: Confusion Objective Exam Vital Signs Vital Signs Date Time Temp Pulse Resp B/P (MAP) Pulse Ox O2 Delivery O2 Flow Rate FiO2 05/25/22 21:15 Room Air 05/25/22 19:38 36.5 83 20 131/64 (86) 96 Capillary Refill : General Appearance: No Apparent Distress, WD/WN, Chronically ill HEENT: PERRL/EOMI, Normal ENT Inspection, Pharynx Normal Neck: Full Range of Motion, Normal Inspection, Non Tender, Supple, Carotid Bruit Respiratory: Chest Non Tender, Lungs Clear, Normal Breath Sounds, No Accessory Muscle Use, No Respiratory Distress Cardiovascular: Regular Rate, Rhythm, No Edema, No Gallop, No JVD, No Murmur, Normal Peripheral Pulses Gastrointestinal: Normal Bowel Sounds, No Organomegaly, No Pulsatile Mass, Non Tender, Soft Back: Normal Inspection, No CVA Tenderness, No Vertebral Tenderness Extremity: Normal Capillary Refill, Normal Inspection, Normal Range of Motion, Non Tender, No Calf Tenderness, No Pedal Edema Neurologic/Psychiatric: Alert, No Motor/Sensory Deficits, neon sign 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 FIM Transfers Therapy Code Descriptions/Definitions Functional [place] Measure: 0=Not Assessed/NA 4=Minimal Assistance 1=Total Assistance 5=Supervision or Setup 2=Maximal Assistance 6=Modified [place] 3=Moderate Assistance 7=Complete IndependenceSCALE: Activities may be completed with or without assistive devices. 0-Hcpmcwmlwh-liufhih completes the activity by him/herself with no assistance from a helper. 5-Set-up or Clean-up Assistance-helper sets up or cleans up; patient completes activity. [place] assists only prior to or following the activity. 4-Supervision or Touching Assistance-helper provides verbal cues and/or touching/steadying and/or contact guard assistance as patient completes activit y. Assistance may be provided throughout the activity or intermittently. 3-Partial/Moderate Assistance-helper does LESS THAN HALF the effort. [place] lifts, holds or supports trunk or limbs, but provides less than half the effort. 2-Substantial/Maximal Assistance-helper does MORE THAN HALF the effort. [place] lifts or holds trunk or limbs and provides more than half the effort. 1-Tbubzpuyr-qcfozx does ALL the effort. Patient does none of the effort to complete the activity. Or, the assistance of 2 or more helpers is required for the patient to complete the activity. If activity was not attempted, code reason: 7-Patient Refused. 9-Not Applicable-not attempted and the patient did not perform the activity before the current illness, exacerbation or injury. 10-Not Attempted due to Environmental Limitations-(lack of equipment, weather restraints, etc.). 88-Not Attempted due to Medical Conditions or Safety Concerns. Roll Left to Right (QC): 4 Sit to Lying (QC): 3 Sit to Stand (QC): 4 Chair/Sua-kc-Avtio Xfer(QC): 4 Car Transfer (QC): 3 Gait Training Does the Patient Walk?: Yes Distance: 120'x2 Walk 10 feet (QC): 4 Walk 50 ft with 2 Turns(QC): 4 Walk 150 ft (QC): 88 Walking 10ft/uneven surface-QC: 4 Gait Persons Needed: 1 Gait Assistive Device: FWW Wheelchair Training Wheel 50 ft with 2 turns (QC): 9 Wheel 150 ft (QC): 9 Stair Training #of Steps: 1 1 Step (curb) (QC): 4 4 Steps (QC): 88 12 Steps (QC): 88 Balance Picking up an Object (QC): 4 (CGA using a jewel sorter) ADL-Treatment Eating (QC): 5 (set up with cutting food and opening containers.) Oral Hygiene (QC): 4 (SBA seated at sink.) Shower/Bathe Self (QC): 3 (Mod A overall. Assist washing BLEs lower legs/feet, assist with buttocks.) Upper Body Dressing (QC): 5 Lower Body Dressing (QC): 2 (Max A with AE) On/Off Footwear (QC): 2 (Max A with AE) Toileting Hygiene (QC): 3 (Min A with posterior hyigne, and min A standing albert nce.) Assessment/Plan Assessment and Plan Assess & Plan/Chief Complaint Assessment: Right hip fracture s/p repair HTN Dementia Falls Post op anemia from acute blood loss Plan: Pain control Monitor hgb Fall risk PT OT 05/24/2022: Monitor BP 05/25/2022: Supportive care (1) Fracture of femoral neck, right, closed Status: Acute (2) Hypertension Status: Chronic (3) Dementia Status: Chronic (4) Fall on same level Status: Acute CULLEN GARCIA DO May 25, 2022 05:49
[2022-05-25 07:57] VITALS: BP 141/63
[2022-05-25] MEDS: ASPIRIN E.C. 81 MG (ECOTRIN) TAB PO SCH (08:48)
[2022-05-25] MEDS: MEMANTINE 10 MG (NAMENDA) TABLET PO SCH ×2 (08:49→21:12)
[2022-05-25] MEDS: LORATADINE (CLARITIN) 10 MG TAB PO SCH (08:49)
[2022-05-25] MEDS: ACETAMINOPHEN 325 MG TABLET PO SCH ×3 (08:49→21:13)
[2022-05-25] MEDS: LOSARTAN 25 MG (COZAAR) TAB PO SCH (08:49)
[2022-05-25] MEDS: DOCUSATE SODIUM 100 MG (COLACE) CAP PO SCH ×2 (08:50→21:17)
[2022-05-25] MEDS: polyethylene glycoL POWDER 17 GM (MIRALAX) PACK PO SCH ×2 (08:51→21:17)
[2022-05-25] MEDS: SENNOSIDES 8.6 MG (SENOKOT) TAB PO SCH ×2 (08:51→21:18)
[2022-05-25] MEDS: SENNA W/DOCUSATE (SENOKOT S) TABLET PO SCH ×2 (08:51→21:17)
--- NOTE | 2022-05-25 10:37 | Occupational Ther Daily Note ---
OT Current Status-Daily Note Subjective Pt agreeable to OT tx. able to recall 0/3 hip precautions even with education throughout session. Mental Status/Objective Patient Orientation: Person, Place, Situation Acute change in mental status: 0 Inattention: 0 Disorganized thinkin Altered level of consciousness: 0 ADL-Treatment Therapy Code Descriptions/Definitions Functional [place] Measure: 0=Not Assessed/NA 4=Minimal Assistance 1=Total Assistance 5=Supervision or Setup 2=Maximal Assistance 6=Modified [place] 3=Moderate Assistance 7=Complete IndependenceSCALE: Activities may be completed with or without assistive devices. 5-Pegjvgfhfr-zrhilgi completes the activity by him/herself with no assistance from a helper. 5-Set-up or Clean-up Assistance-helper sets up or cleans up; patient completes activity. [place] assists only prior to or following the activity. 4-Supervision or Touching Assistance-helper provides verbal cues and/or touching/steadying and/or contact guard assistance as patient completes activity. Assistance may be provided throughout the activity or intermittently. 3-Partial/Moderate Assistance-helper does LESS THAN HALF the effort. [place] lifts, holds or supports trunk or limbs, but provides less than half the effort. 2-Substantial/Maximal Assistance-helper does MORE THAN HALF the effort. [place] lifts or holds trunk or limbs and provides more than half the effort. 3-Qrioeqiwx-ojfuht does ALL the effort. Patient does none of the effort to complete the activity. Or, the assistance of 2 or more helpers is required for the patient to complete the activity. If activity was not attempted, code reason: 7-Patient Refused. 9-Not Applicable-not attempted and the patient did not perform the activity before the current illness, exacerbation or injury. 10-Not Attempted due to Environmental Limitations-(lack of equipment, weather restraints, etc.). 88-Not Attempted due to Medical Conditions or Safety Concerns. Shower/Bathe Self (QC): 3 (Min A with washing buttocks. Moderate verbal cues to follow precautions throughout shower, and VCs for using LH sponge for LEs.) Upper Body Dressing (QC): 5 Lower Body Dressing (QC): 2 (Max A using dressing stick. Pt required max verbal cues and hand over hand assistance for each step.) On/Off Footwear: 2 (Max A with slip on shoes.) Other Treatment Pt in bed, agreeable to OT tx. Pt transferred supine to sit EOB, assist with RLE. Pt used FWW to stand from EOB, min A, then transferred onto NC, [facility]. Pt doffed clothes, using AE as needed with cues. Pt completed shower, with close SBA to make sure pt follows hip precautions. Pt required moderate VCs for precautions and VCs to use LH sponge and adaptive techniques to wash/dry LEs and feet. Pt donned shirt with set up, then required max A with LE dressing using dressing stick, and hand over hand assistance with each step. Pt transferred to recliner, for seated rest break. Pt used FWW to perform functional mobility to therapy gym, [facility]. OT educated pt's daughter on Adaptive techniques for showering using LH sponge, she verbalized understanding. OT/PT cotreat due to skill of 2 clinicians required which a fiberglass quality technician could not perform in order to coordinate UE/LEs, decrease fall risk, focus on higher level balance tasks, and due to pt's limitations in strength, mobility, and ability to recall hip precautions. OT focused on UE placement, cues for sequencing and safety and ADLs, PT focused on LE placement, gross overall movement, transfers, mobility, and dynamic standing balance. Pt used FWW to kitchen area, located 5 ochoa bags in open cabinets. Pt able to use environmental journalist to orange picker machine operator ochoa bags on ground and lower cabinets and UEs to reach at counter level and overhead. Pt required skilled cues with each ochoa bag in order to square walker up to counter and maintain hip precautions. She then tossed 5 ochoa bags into basket in front of her, able to make all 5 throws into the basket. Post tx, pt left with PT, all needs met. Education OT Patient Education: Correct positioning, Energy conservation, Modified ADL techniques, Progress toward Goal/Update tx plan, Purpose of tx/functional activities, Rehab process Teaching Recipient: Patient, Family Teaching Methods: Discussion Response to Teaching: Verbalize Understanding, Reinforcement Needed OT Short Term Goals Short Term Goals Time Frame: Jun 09, 2022 Shower/bathe self: 3 Lower body dressin Putting on/taking off footwear: 3 OT Buttermaker Helper Goals Buttermaker Helper Goals Time Frame: Jun 25, 2022 Acute change in mental status: 0 Inattention: 0 Disorganized thinkin Altered level of consciousness: 0 Eating (QC): 5 Oral Hygiene (QC): 6 Toileting Hygiene (QC): 6 Shower/Bathe Self (QC): 5 Upper Body Dressing (QC): 5 Lower Body Dressing (QC): 4 On/Off Footwear (QC): 4 Additional Goals: 1-Demonstrate ADL Tasks, 2-Verbalize Understanding, 3-ImproveStrength/Armand 1=Demonstrate adherence to instructed precautions during ADL tasks. 2=Patient will verbalize/demonstrate understanding of assistive devices/modifications for ADL. 3=Patient will improve strength/tolerance for activity to enable patient to perform ADL's. OT Education/Plan Problem List/Assessment Assessment: Decreased Activ Tolerance, Decreased Safety Aware, Decreased UE Strength, Impaired Cognition, Impaired Funct Balance, Impaired I ADL's, Impaired Self-Care Skills Discharge Recommendations Plan/Recommendations: Continue POC Treatment Plan/Plan of Care Patient would benefit from OT for education, treatment and training to promote independence in ADL's, mobility, safety and/or upper extremity function for ADL's. Plan of Care: ADL Retraining, Caregiver Training, Functional Mobility, Group Exercise/Act as Ind, UE Funct Exercise/Act Treatment Duration: Jun 25, 2022 Frequency: At least 5 of 7 days/Wk (IRF) Estimated Hrs Per Day: 1.5 hours per day Agreement: Yes Rehab Potential: Fair Time/GCodes Start Time: 09:00 Stop Time: 10:30 Total Time Billed (hr/min): 90 Billed Treatment Time OT tx x60', [place] x30' 1, ADL 4 (60'), FA 2 (30') TORI PINTO OT May 25, 2022 10:37
--- NOTE | 2022-05-25 11:11 | Physical Therapy Daily Note ---
PT Daily Note-Current Subjective Pt working with OT in Therapy Gym upon arrival. Pt agrees to PT/OT co-treat. Pain Section J - Health Conditions 1. Rarely or not at all 2. Occasionally 3. Frequently 4. Almost constantly 8. Unable to answer Pain Effect on Sleep: 0 Pain Interference with Therapy: 2 Pain Interference w/Day-to-Day: 2 Mental Status Patient Orientation: Person, Confused, Place Transfers SCALE: Activities may be completed with or without assistive devices. 2-Vbjymijuea-xzaejpu completes the activity by him/herself with no assistance from a helper. 5-Set-up or Clean-up Assistance-helper sets up or cleans up; patient completes activity. [place] assists only prior to or following the activity. 4-Supervision or Touching Assistance-helper provides verbal cues and/or touching/steadying and/or contact guard assistance as patient completes activity. Assistance may be provided throughout the activity or intermittently. 3-Partial/Moderate Assistance-helper does LESS THAN HALF the effort. [place] lifts, holds or supports trunk or limbs, but provides less than half the effort. 2-Substantial/Maximal Assistance-helper does MORE THAN HALF the effort. [place] lifts or holds trunk or limbs and provides more than half the effort. 8-Eyvhvzxfz-ktmipg does ALL the effort. Patient does none of the effort to complete the activity. Or, the assistance of 2 or more helpers is required for the patient to complete the activity. If activity was not attempted, code reason: 7-Patient Refused. 9-Not Applicable-not attempted and the patient did not perform the activity before the current illness, exacerbation or injury. 10-Not Attempted due to Environmental Limitations-(lack of equipment, weather restraints, etc.). 88-Not Attempted due to Medical Conditions or Safety Concerns. Sit to Stand (QC): 4 Weight Bearing Right Lower Extremity: Right Weight Bearing/Tolerated Gait Training Does the Patient Walk?: Yes Distance: 150', 125' x2 Walk 10 feet (QC): 5 Walk 50 ft with 2 Turns(QC): 5 Walk 150 ft (QC): 5 Gait Assistive Device: FWW Exercises Seated Therapy Exercises: Ankle pumps, Long arc quads, Hip flexion, Glut set Seated Reps: 15 Treatments OT/PT cotreat due to skill of 2 clinicians required which a rehabilitation program coordinator could not perform in order to coordinate UE/LEs, decrease fall risk, focus on higher level balance tasks, and due to pt's limitations in strength, mobility, and ability to recall hip precautions. OT focused on UE placement, cues for sequencing and safety and ADLs, PT focused on LE placement, gross overall movement, transfers, mobility, and dynamic standing balance. Pt used FWW to kitchen area, located 5 ochoa bags in open cabinets. Pt able to use tube operator to chicken picker ochoa bags on ground and lower cabinets and UEs to reach at counter level and overhead. Pt required skilled cues with each ochoa bag in order to square walker up to counter and maintain hip precautions. She then tossed 5 ochoa bags into basket in front of her, able to make all 5 throws into the basket. OT departs and PT continues Ind. tx. [id number]: Pt amb. in hallway before taking RB. Pt completes Seated EX followed by another RB. TF to standing and amb. back to room. Pt tf to recliner to rest, all needs met, call light in hand & Nurse present. Assessment Current Status: Good Progress Pt needs VC for remembering Hip Precautions. Pt needs frequent RB as pt fatigues. PT Short Term Goals Short Term Goals Time Frame: May 31, 2022 Roll Left & Right: 4 (SBA) Sit to lyin (Macy) Lying to sitting on side of be: 3 (Macy) Sit to stand: 4 (CGA) Chair/swe-tl-xwrjp transfer: 4 (SBA) Walk 10 feet: 4 (SBA) Walk 50 feet with two turns: 4 (SBA) Walk 150 feet: 4 (SBA) PT Alf Goals [place] Goals PT [place] Goals Time Frame: Jun 14, 2022 Roll Left & Right (QC): 6 Sit to Lying (QC): 4 (SBA) Lying-Sitting on Side/Bed(QC): 4 (SBA) Sit to Stand (QC): 4 (SBA) Chair/Tda-kt-Rlxza Xfer(QC): 5 Toilet Transfer (QC): 4 Car Transfer (QC): 4 (SBA) Does the Patient Walk: Yes Walk 10 feet (QC): 5 Walk 50ft with 2 Turns (QC): 5 Walk 150 ft (QC): 5 Walking 10ft on Uneven Surface: 5 1 Step (curb) (QC): 4 (CGA) 4 Steps (QC): 4 (CGA) 12 Steps (QC): 88 Picking up an Object (QC): 4 (SBA using tube operator) Wheel 50 feet with 2 turns (QC: 9 Wheel 150 feet: 9 PT Plan Problem List Problem List: Activity Tolerance, Functional Strength, Safety Treatment/Plan Treatment Plan: Continue Plan of Care Treatment Plan: Bed Mobility, Education, Functional Activity Armand, Functional Strength, Group Therapy, Gait, Safety, Therapeutic Exercise, Transfers Treatment Duration: Jun 14, 2022 Frequency: At least 5 of 7 days/Wk (IRF) Estimated Hrs Per Day: 1.5 hours per day Patient and/or Family Agrees t: Yes Safety Risks/Education Patient Education: Gait Training, Transfer Techniques, Reviewed Precautions Teaching Recipient: Patient Teaching Methods: Discussion Response to Teaching: Reinforcement Needed Time/GCodes Time In: 1000 Time Out: 1100 Total Billed Treatment Time: 60 Total Billed Treatment Co-treat w/OT 30m ([id number]) 1, GT (20m), EX(15m) & FA x2 (25m) ZANDER BRUNO INTERNAL AUDITOR May 25, 2022 11:11
--- NOTE | 2022-05-25 13:40 | Physical Therapy Daily Note ---
PT Daily Note-Current Subjective Pt sitting up in bed reading upon arrival. Pt agrees to PT. Pain Location: No Pain Reported Section J - Health Conditions 1. Rarely or not at all 2. Occasionally 3. Frequently 4. Almost constantly 8. Unable to answer Pain Effect on Sleep: 0 Pain Interference with Therapy: 2 Pain Interference w/Day-to-Day: 2 Mental Status Patient Orientation: Person, Confused Transfers SCALE: Activities may be completed with or without assistive devices. 6-Bjjlklcdzt-vzmrvfr completes the activity by him/herself with no assistance from a helper. 5-Set-up or Clean-up Assistance-helper sets up or cleans up; patient completes activity. [place] assists only prior to or following the activity. 4-Supervision or Touching Assistance-helper provides verbal cues and/or touching/steadying and/or contact guard assistance as patient completes activity. Assistance may be provided throughout the activity or intermittently. 3-Partial/Moderate Assistance-helper does LESS THAN HALF the effort. [place] lifts, holds or supports trunk or limbs, but provides less than half the effort. 2-Substantial/Maximal Assistance-helper does MORE THAN HALF the effort. [place] lifts or holds trunk or limbs and provides more than half the effort. 9-Zcgkanhfo-isfciz does ALL the effort. Patient does none of the effort to complete the activity. Or, the assistance of 2 or more helpers is required for the patient to complete the activity. If activity was not attempted, code reason: 7-Patient Refused. 9-Not Applicable-not attempted and the patient did not perform the activity before the current illness, exacerbation or injury. 10-Not Attempted due to Environmental Limitations-(lack of equipment, weather restraints, etc.). 88-Not Attempted due to Medical Conditions or Safety Concerns. Sit to Stand (QC): 4 Toilet Transfer (QC): 4 Weight Bearing Right Lower Extremity: Right Weight Bearing/Tolerated Gait Training Does the Patient Walk?: Yes Distance: 15' Walk 10 feet (QC): 4 Gait Persons Needed: 1 Gait Assistive Device: FWW Treatments Pt completes Supine Ex before needing to use BR. Pt has loose BM in brief so TECHNICAL AIDE assists pt with doffing, pericare & donning new brief. Pt returns to bed to rest at end of tx. All needs met, call light in hand. Assessment Current Status: Fair Progress Pt remains confused and needs continual redirection. PT Short Term Goals Short Term Goals Time Frame: May 31, 2022 Roll Left & Right: 4 (SBA) Sit to lyin (Macy) Lying to sitting on side of be: 3 (Macy) Sit to stand: 4 (CGA) Chair/mem-hm-ncbyd transfer: 4 (SBA) Walk 10 feet: 4 (SBA) Walk 50 feet with two turns: 4 (SBA) Walk 150 feet: 4 (SBA) PT Customs Investigator Goals Usp Goals PT Usp Goals Time Frame: Jun 14, 2022 Roll Left & Right (QC): 6 Sit to Lying (QC): 4 (SBA) Lying-Sitting on Side/Bed(QC): 4 (SBA) Sit to Stand (QC): 4 (SBA) Chair/Het-as-Eplcz Xfer(QC): 5 Toilet Transfer (QC): 4 Car Transfer (QC): 4 (SBA) Does the Patient Walk: Yes Walk 10 feet (QC): 5 Walk 50ft with 2 Turns (QC): 5 Walk 150 ft (QC): 5 Walking 10ft on Uneven Surface: 5 1 Step (curb) (QC): 4 (CGA) 4 Steps (QC): 4 (CGA) 12 Steps (QC): 88 Picking up an Object (QC): 4 (SBA using branch manager trainee) Wheel 50 feet with 2 turns (QC: 9 Wheel 150 feet: 9 PT Plan Problem List Problem List: Activity Tolerance, Functional Strength, Safety Treatment/Plan Treatment Plan: Continue Plan of Care Treatment Plan: Bed Mobility, Education, Functional Activity Armand, Functional Strength, Group Therapy, Gait, Safety, Therapeutic Exercise, Transfers Treatment Duration: Jun 14, 2022 Frequency: At least 5 of 7 days/Wk (IRF) Estimated Hrs Per Day: 1.5 hours per day Patient and/or Family Agrees t: Yes Safety Risks/Education Patient Education: Correct Positioning, Safety Issues Teaching Recipient: Patient Teaching Methods: Discussion Response to Teaching: Reinforcement Needed Time/GCodes Time In: 1300 Time Out: 1330 Total Billed Treatment Time: 30 Total Billed Treatment 1, EX (15m) & FA (15m) ZANDER BRUNO TECHNICAL AIDE May 25, 2022 13:40
--- NOTE | 2022-05-25 14:45 | Progress Note ---
ROLANDO ARELLANO 05/25/22 1445: Progress Note CC: Debility following right hip fracture with repair HPI: This is a 76yoWF who has a h/o dementia who is s/p repair of right hip fracture sustained in a fall. Patient has dementia so details are minimal. Bowel regimen will be maintained and BP will be monitored. PLOF was use of walker at home. Patient is lying in bed when I visited today and reports she is doing well overall. Pain is controlled. Patient endorses right shoulder discomfort, but it is improving since OMM treatment yesterday. Today will provide OMM to patient f or assistance with recovery ROS: General: Fatigue, Malaise Extremities: right shoulder pain Exam: General Appearance: No Apparent Distress, WD/WN, Chronically ill HEENT: PERRL/EOMI, Normal ENT Inspection, Pharynx Normal Neck: Full Range of Motion, Normal Inspection, Non Tender, Supple, Carotid Bruit Respiratory: Chest Non Tender, Lungs Clear, Normal Breath Sounds, No Accessory Muscle Use, No Respiratory Distress Cardiovascular: RRR, No Edema, No Gallop, No JVD, No Murmur, Normal Peripheral Pulses Extremity: Normal Capillary Refill, Normal Inspection, Normal Range of Motion, Non Tender, No Calf Tenderness, No Pedal Edema, hypertonic right trapezius muscle Neurologic/Psychiatric: Alert, No Motor/Sensory Deficits, Depressed Affect, Disoriented, Motor Weakness (right leg) Skin: Normal Color, Warm/Dry Lymphatic: No Adenopathy Assessment: Right hip fracture s/p repair HTN Dementia Falls Post op anemia from acute blood loss Hypertonic right trapezius muscle Plan: Soft tissue technique right trapezius NORMA GARCIA DO 05/26/22 0553: Supervisory-Addendum Brief Verification & Attestation Participated in pt care: history, MDM, physical Personally performed: exam, history, MDM, supervision of care Care discussed with: Medical Student Procedures: n/a Results interpretation: Verified all documentation Verification and Attestation of Medical Student E/M Service A medical student performed and documented this service in my presence. I reviewed and verified all information documented by the medical student and made modifications to such information, when appropriate. I personally performed the physical exam and medical decision making. Norma Garcia May 26, 2022,05:53 ROLANDO ARELLANO May 25, 2022 14:45 NORMA GARCIA DO May 26, 2022 05:53
[2022-05-25] MEDS: ENOXAPARIN 40 MG/0.4 ML (LOVENOX) SYR SC SCH (16:47)
[2022-05-25 19:38] VITALS: BP 131/64
[2022-05-25] MEDS: DONEPEZIL 10 MG (ARICEPT) TAB PO SCH (21:12)
--- NOTE | 2022-05-26 06:02 | Individualized Plan of Care ---
Individualized Plan of Care Rehab Nursing IPOC Order Admission Date May 23, 2022 at 11:00 Current Orders Orders Admission Order(Inpt,Obs,Sdc) (05/23/22 08:36) Jose Galvan (05/23/22 08:36) Sequential Compression Device (05/23/22 08:36) State Tested Nursing Assistant-Inpt Rehab Con (05/23/22 08:36) Rehab Nursing Orders-Ipoc (05/23/22 08:36) Physical Therapy Rehab Orders (05/23/22 08:36) Occupational Therapy Rehab Ord (05/23/22 08:36) Speech Therapy Rehab Orders (05/23/22 08:36) Cbc With Automated Diff (05/24/22 06:00) Comprehensive Metabolic Panel (05/24/22 06:00) Precautions (Aru) (05/23/22 08:36) Rehab-Intensity Of Therapy (05/23/22 08:36) Alprazolam Tablet (Xanax Tablet) (05/23/22 08:45) Calcium Carbonate Chew Tablet (Antacid C (05/23/22 08:45) Diphenhydramine Tablet (Benadryl Tablet) (05/23/22 08:45) Docusate Sodium Capsule (Colace Capsule) (05/23/22 09:00) Docusate Sodium Capsule (Colace Capsule) (05/23/22 08:45) Bisacodyl Suppository (Dulcolax Supposit (05/23/22 08:45) Lactulose Oral Solution (Enulose Oral So (05/23/22 08:45) Na Phos/Na Biphos Enema (Fleet Enema Elmer (05/23/22 08:45) Guaifenesin/Codeine Syrup (Robitussin Ac (05/23/22 08:45) Loperamide Tablet (Imodium Tablet) (05/23/22 08:45) Melatonin Tablet (Melatonin Tablet) (05/23/22 08:45) Polyethylene Glycol Powder Pkt (Miralax (05/23/22 09:00) Ondansetron Oral Dissolve Tab (Zofran (05/23/22 08:45) Senna S Tablet (Senokot S Tablet) (05/23/22 09:00) Acetaminophen Tablet/Caplet (Tylenol T (05/23/22 08:45) Initiate Admission Nursing Pro .admission (05/23/22 08:36) Admission Arrival Bed Request (05/23/22 11:17) Code/Resuscitation (05/23/22 15:29) Dressing Order (Intervention) Q48H (05/23/22 15:29) Incentive Spirometry (Nursing) Q2H (05/23/22 15:29) Aspirin Enteric Coated Tablet (Ecotrin T (05/24/22 09:00) Docusate Sodium Capsule (Colace Capsule) (05/23/22 21:00) Donepezil Tablet (Aricept Tablet) (05/23/22 21:00) Bisacodyl Suppository (Dulcolax Supposit (05/23/22 15:30) Enoxaparin Injection (Lovenox Injection) (05/23/22 15:30) Lactulose Oral Solution (Enulose Oral So (05/23/22 15:30) Hydrocodone/Apap 7.5/325 Tab (Lortab 7. (05/23/22 15:30) Losartan Tablet (Cozaar Tablet) (05/24/22 09:00) Melatonin Tablet (Melatonin Tablet) (05/23/22 15:30) Memantine Tablet (Namenda Tablet) (05/23/22 21:00) Magnesium Hydroxide Oral Susp (Mom Oral (05/23/22 15:30) Polyethylene Glycol Powder Pkt (Miralax (05/23/22 15:30) Antacid Suspension (Mylanta Suspension (05/23/22 15:30) Temazepam Capsule (Restoril Capsule) (05/23/22 15:30) Sennosides Tablet (Senokot Tablet) (05/23/22 21:00) Calcium Carbonate Chew Tablet (Antacid C (05/23/22 15:30) Acetaminophen Tablet/Caplet (Tylenol T (05/23/22 21:00) Ondansetron Injection (Zofran Injectio (05/23/22 15:30) Ondansetron Oral Dissolve Tab (Zofran (05/23/22 15:30) Diphenhydramine Injection (Benadryl Inje (05/23/22 15:30) Fentanyl Inj (Sublimaze Injection) (05/23/22 15:30) Hydralazine Injection (Apresoline Inject (05/23/22 15:30) Consult Orthopedic Surgery (05/23/22 15:29) Incentive Spirometry Initial (05/23/22 15:29) Incentive Spirometry (Nursing) Q2H (05/23/22 15:29) Ensure Plus Vanilla (05/23/22 20:27) General/Regular (05/24/22 Breakfast) Patient Visit (05/24/22 ) Speech Sound Lang Comp (05/24/22 ) Loratadine Tablet (Claritin Tablet) (05/24/22 11:15) Patient Visit (05/24/22 ) Pt Eval Moderate Complexity (05/24/22 ) Exercise Therap, Ea 15 Min (05/24/22 ) Functional Activities, Ea 15 (05/24/22 ) Patient Visit (05/25/22 ) Gait Training, Ea 15 Min (05/25/22 ) Exercise Therap, Ea 15 Min (05/25/22 ) Functional Activities, Ea 15 (05/25/22 ) Rehab Nursing Orders: Ongoing Assess. of Cognitive Status, Ongoing Assess. of Function Status, Bladder Management, Bladder Scan, Bladder Training, Bowel Management, Bowel Training, Disease Management & Educaiton, DVT Prophylaxis, Fall Prevention, Fluid/Electrolyte/Nutrition Mgmt, Infection Prevention, Medication Management & Education, Management of Risks & Complications, Paula gement of Skin Intergrity, Nutrition Management, Pain Management, Patient/Family Support, Safety Management, Weight Bearing Precaution, Wound Management Intensity of Therapy to be met Patient to be seen: Min.3h per day/5 of 7d PT IPOC Problem List: Activity Tolerance, Functional Strength, Safety Treatment Plan: Continue Plan of Care Bed Mobility, Education, Functional Activity Armand, Functional Strength, Group Therapy, Gait, Safety, Therapeutic Exercise, Transfers Treatment Duration: Jun 14, 2022 Frequency: At least 5 of 7 days/Wk (IRF) Estimated Hrs Per Day: 1.5 hours per day OT IPOC Problems: Decreased Activ Tolerance, Decreased Safety Aware, Decreased UE Strength, Impaired Cognition, Impaired Funct Balance, Impaired I ADL's, Impaired Self-Care Skills OT Treatment, Training and Edu: Yes Plan of Care: ADL Retraining, Caregiver Training, Functional Mobility, Group Exercise/Act as Ind, UE Funct Exercise/Act Treatment Duration: Jun 25, 2022 Frequency: At least 5 of 7 days/Wk (IRF) Estimated Hrs Per Day: 1.[address] IPOC Speech Therapy Treatment Plan: Discontinue ST (Baseline Cognition) Treatment Duration: May 24, 2022 Frequency: 1 time per week Estimated Hrs Per Day: .5 hour per day State Tested Nursing Assistant/Case Mgmt State Tested Nursing Assistant/Case Managemen: Discharge Planning Dietitian/Superintendent [employer] Dietitian/Superintendent [employer] to monitor nutritional status and make changes and/or recommendations as needed and work with speech pathology on dietary upgrades as the occur. Physician IPOC Medical Issues being managed closely and that require the 24 hour availability of a physician: Recent hip fracture will require close monitoring of post op anemia with hgb checks along with cognitive status checks due to dementia along with monitoring BP Medical Issues: Bowel/Bladder Function, DVT Prophylaxis, Falls Precautions, Fluid/Electrolyte/Nutrition Balance, Infection Protection, Pain Management, Weight Bearing Precautions, Wound Care Brief Synthesis of Preadmission Screen, Post-Admission Evaluation, and Therapy Evaluations: PT OT will focus on regaining function with use of assistive devices in order to regain enough independence in order to 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
--- NOTE | 2022-05-26 06:02 | PM&R Progress Note ---
Subjective HPI/CC On Admission Date Seen by Provider: May 26, 2022 Time Seen by Provider: 08:30 Subjective/Events-last exam 05/26/2022: Bowels moved 3 days ago She lost a tooth so her daughter is working on that with dentist No other concerns Dementia procludes anything but a poor prognosis 05/25/2022: Pt is inctotinent of loose stools Overall feels like she is doing a little better Decreased pain Checked meds and labs 05/24/2022: Bowels are moving yesterday No pain 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 anything but a poor prognosis assisted Participating Review of Systems General: Fatigue, Malaise Objective Exam Vital Signs Vital Signs Date Time Temp Pulse Resp B/P (MAP) Pulse Ox O2 Delivery O2 Flow Rate FiO2 05/26/22 08:00 Room Air 05/26/22 07:40 36.5 64 16 137/63 (87) 96 Capillary Refill : General Appearance: No Apparent Distress, WD/WN, Chronically ill HEENT: PERRL/EOMI, Normal ENT Inspection, Pharynx Normal Neck: Full Range of Motion, Normal Inspection, Non Tender, Supple, Carotid Bruit Respiratory: Chest Non Tender, Lungs Clear, Normal Breath Sounds, No Accessory Muscle Use, No Respiratory Distress Cardiovascular: Regular Rate, Rhythm, No Edema, No Gallop, No JVD, No Murmur, Normal Peripheral Pulses Gastrointestinal: Normal Bowel Sounds, No Organomegaly, No Pulsatile Mass, Non Tender, Soft Back: Normal Inspection, No CVA Tenderness, No Vertebral Tenderness Extremity: Normal Capillary Refill, Normal Inspection, Normal Range of Motion, Non Tender, No Calf Tenderness, No Pedal Edema Neurologic/Psychiatric: Alert, No Motor/Sensory Deficits, security system installer II-XII Norm as Tested, Depressed Affect, Disoriented, Motor Weakness (right leg) Skin: Normal Color, Warm/Dry Lymphatic: No Adenopathy Results/Procedures Lab Patient resulted labs reviewed. FIM Transfers Therapy Code Descriptions/Definitions Functional [place] Measure: 0=Not Assessed/NA 4=Minimal Assistance 1=Total Assistance 5=Supervision or Setup 2=Maximal Assistance 6=Modified [place] 3=Moderate Assistance 7=Complete IndependenceSCALE: Activities may be completed with or without assistive devices. 3-Wogvscfywb-nqldzwu completes the activity by him/herself with no assistance from a helper. 5-Set-up or Clean-up Assistance-helper sets up or cleans up; patient completes activity. [place] assists only prior to or following the activity. 4-Supervision or Touching Assistance-helper provides verbal cues and/or touching/steadying and/or contact guard assistance as patient completes activity. Assistance may be provided throughout the activity or intermittently. 3-Partial/Moderate Assistance-helper does LESS THAN HALF the effort. [place] lifts, holds or supports trunk or limbs, but provides less than half the effort. 2-Substantial/Maximal Assistance-helper does MORE THAN HALF the effort. [place] lifts or holds trunk or limbs and provides more than half the effort. 7-Jkfuibrjm-evdsui does ALL the effort. Patient does none of the effort to complete the activity. Or, the assistance of 2 or more helpers is required for the patient to complete the activity. If activity was not attempted, code reason: 7-Patient Refused. 9-Not Applicable-not attempted and the patient did not perform the activity before the current illness, exacerbation or injury. 10-Not Attempted due to Environmental Limitations-(lack of equipment, weather restraints, etc.). 88-Not Attempted due to Medical Conditions or Safety Concerns. Roll Left to Right (QC): 4 Sit to Lying (QC): 3 Sit to Stand (QC): 4 Chair/Mma-du-Vgxfh Xfer(QC): 4 Car Transfer (QC): 3 Gait Training Does the Patient Walk?: Yes Distance: 15' Walk 10 feet (QC): 4 Walk 50 ft with 2 Turns(QC): 5 Walk 150 ft (QC): 5 Walking 10ft/uneven surface-QC: 4 Gait Persons Needed: 1 Gait Assistive Device: FWW Wheelchair Training Does the Pt Use a Wheelchair?: No Wheel 50 ft with 2 turns (QC): 9 Wheel 150 ft (QC): 9 Type of Wheelchair: N/A Stair Training #of Steps: 1 1 Step (curb) (QC): 4 4 Steps (QC): 88 12 Steps (QC): 88 Balance Picking up an Object (QC): 4 (CGA using a cleaner) ADL-Treatment Eating (QC): 5 (set up with cutting food and opening containers.) Oral Hygiene (QC): 4 (SBA seated at sink.) Shower/Bathe Self (QC): 3 (Min A with washing buttocks. Moderate verbal cues to follow precautions throughout shower, and VCs for using LH sponge for LEs.) Upper Body Dressing (QC): 5 Lower Body Dressing (QC): 2 (Max A using dressing stick. Pt required max verbal cues and hand over hand assistance for each step.) On/Off Footwear (QC): 2 (Max A with slip on shoes.) Toileting Hygiene (QC): 3 (Min A with posterior hyigne, and min A standing balance.) Assessment/Plan Assessment and Plan Assess & Plan/Chief Complaint Assessment: Right hip fracture s/p repair HTN Dementia Falls Post op anemia from acute blood loss Plan: Pain control Monitor hgb Fall risk PT OT 05/24/2022: Monitor BP 05/25/2022: Supportive care 05/26/2022: Monitor pain (1) Fracture of femoral neck, right, closed Status: Acute (2) Hypertension Status: Chronic (3) Dementia Status: Chronic (4) Fall on same level Status: Acute CULLEN GARCIA DO May 26, 2022 06:02
[2022-05-26 07:40] VITALS: BP 137/63
[2022-05-26] MEDS: ASPIRIN E.C. 81 MG (ECOTRIN) TAB PO SCH (08:49)
[2022-05-26] MEDS: SENNOSIDES 8.6 MG (SENOKOT) TAB PO SCH ×2 (08:49→21:21)
[2022-05-26] MEDS: LOSARTAN 25 MG (COZAAR) TAB PO SCH (08:49)
[2022-05-26] MEDS: MEMANTINE 10 MG (NAMENDA) TABLET PO SCH ×2 (08:49→21:20)
[2022-05-26] MEDS: LORATADINE (CLARITIN) 10 MG TAB PO SCH (08:49)
[2022-05-26] MEDS: SENNA W/DOCUSATE (SENOKOT S) TABLET PO SCH ×2 (08:49→21:19)
[2022-05-26] MEDS: DOCUSATE SODIUM 100 MG (COLACE) CAP PO SCH ×2 (08:49→21:19)
[2022-05-26] MEDS: ACETAMINOPHEN 325 MG TABLET PO SCH ×3 (08:51→21:19)
[2022-05-26] MEDS: polyethylene glycoL POWDER 17 GM (MIRALAX) PACK PO SCH ×2 (09:00→21:22)
--- NOTE | 2022-05-26 09:35 | Progress Note ---
Standard Progress Note Progress Notes/Assess & Plan Date Seen by a Provider: May 26, 2022 Time Seen by a Provider: 09:34 Progress/Assessment & Plan doing well Vital Signs Date Time Temp Pulse Resp B/P (MAP) Pulse Ox O2 Delivery O2 Flow Rate FiO2 05/26/22 07:40 36.5 64 16 137/63 (87) 96 05/25/22 21:15 Room Air 05/25/22 19:38 36.5 83 20 131/64 (86) 96 Room Air RLE--no calf tnderness neg Kathryn's able to perform SLR s/p R hip bipolar continue PT/OT MEREDITH PADILLA MD May 26, 2022 09:35
--- NOTE | 2022-05-26 11:00 | Physical Therapy Daily Note ---
PT Daily Note-Current Subjective Pt sitting in recliner in room upon arrival. Pt agrees to PT. Pain Location: Right, Incisional Location Body Site: Hip Comment: Reports but doesn't rate Section J - Health Conditions 1. Rarely or not at all 2. Occasionally 3. Frequently 4. Almost constantly 8. Unable to answer Pain Effect on Sleep: 0 Pain Interference with Therapy: 2 Pain Interference w/Day-to-Day: 2 Mental Status Patient Orientation: Person, Confused Transfers SCALE: Activities may be completed with or without assistive devices. 1-Qlmvgaunea-hmfmdvu completes the activity by him/herself with no assistance from a helper. 5-Set-up or Clean-up Assistance-helper sets up or cleans up; patient completes activity. [place] assists only prior to or following the activity. 4-Supervision or Touching Assistance-helper provides verbal cues and/or touching/steadying and/or contact guard assistance as patient completes activity. Assistance may be provided throughout the activity or intermittently. 3-Partial/Moderate Assistance-helper does LESS THAN HALF the effort. [place] lifts, holds or supports trunk or limbs, but provides less than half the effort. 2-Substantial/Maximal Assistance-helper does MORE THAN HALF the effort. [place] lifts or holds trunk or limbs and provides more than half the effort. 6-Cemtsjjkv-escrzx does ALL the effort. Patient does none of the effort to complete the activity. Or, the assistance of 2 or more helpers is required for the patient to complete the activity. If activity was not attempted, code reason: 7-Patient Refused. 9-Not Applicable-not attempted and the patient did not perform the activity b efore the current illness, exacerbation or injury. 10-Not Attempted due to Environmental Limitations-(lack of equipment, weather restraints, etc.). 88-Not Attempted due to Medical Conditions or Safety Concerns. Sit to Stand (QC): 4 Weight Bearing Right Lower Extremity: Right Weight Bearing/Tolerated Gait Training Does the Patient Walk?: Yes Distance: 150', 100' Walk 10 feet (QC): 4 Walk 50 ft with 2 Turns(QC): 4 Walk 150 ft (QC): 4 Gait Persons Needed: 1 Gait Assistive Device: FWW VC for safety. Exercises Seated Therapy Exercises: Ankle pumps, Long arc quads, Hip flexion, Glut set Seated Reps: 10 NuStep Minutes: 6 NuStep Workload: 2 Treatments TF to standing, declines need for BR. Pt amb. in hallway then takes RB as needed for fatigue. Pt completes Seated EX in chair then TF to NuStep. After c ompleting, pt amb. in hallway and returns to room. Pt resting in recliner with all needs met, call light in hand. Assessment Current Status: Fair Progress Pt is confused due to dementia and needs VC for safety & reminders of Hip Precautions. PT Short Term Goals Short Term Goals Time Frame: May 31, 2022 Roll Left & Right: 4 (SBA) Sit to lyin (Macy) Lying to sitting on side of be: 3 (Macy) Sit to stand: 4 (CGA) Chair/jzy-se-dkmis transfer: 4 (SBA) Walk 10 feet: 4 (SBA) Walk 50 feet with two turns: 4 (SBA) Walk 150 feet: 4 (SBA) PT [place] Upholsterer Goals Detention Goals PT [place] Upholsterer Goals Time Frame: Jun 14, 2022 Roll Left & Right (QC): 6 Sit to Lying (QC): 4 (SBA) Lying-Sitting on Side/Bed(QC): 4 (SBA) Sit to Stand (QC): 4 (SBA) Chair/Qfp-jq-Hiwkd Xfer(QC): 5 Toilet Transfer (QC): 4 Car Transfer (QC): 4 (SBA) Does the Patient Walk: Yes Walk 10 feet (QC): 5 Walk 50ft with 2 Turns (QC): 5 Walk 150 ft (QC): 5 Walking 10ft on Uneven Surface: 5 1 Step (curb) (QC): 4 (CGA) 4 Steps (QC): 4 (CGA) 12 Steps (QC): 88 Picking up an Object (QC): 4 (SBA using corrosion control specialist) Wheel 50 feet with 2 turns (QC: 9 Wheel 150 feet: 9 PT Plan Problem List Problem List: Activity Tolerance, Functional Strength, Safety Treatment/Plan Treatment Plan: Continue Plan of Care Treatment Plan: Bed Mobility, Education, Functional Activity Armand, Functional Strength, Group Therapy, Gait, Safety, Therapeutic Exercise, Transfers Treatment Duration: Jun 14, 2022 Frequency: At least 5 of 7 days/Wk (IRF) Estimated Hrs Per Day: 1.5 hours per day Patient and/or Family Agrees t: Yes Safety Risks/Education Patient Education: Gait Training, Transfer Techniques, Reviewed Precautions, Correct Positioning, Safety Issues Teaching Recipient: Patient Teaching Methods: Discussion Response to Teaching: Reinforcement Needed Time/GCodes Time In: 1000 Time Out: 1100 Total Billed Treatment Time: 60 Total Billed Treatment 1, GT x2 (30m) & EX x2 (30m) ZANDER BRUNO MAXILLOFACIAL SURGEON May 26, 2022 11:00
--- NOTE | 2022-05-26 13:04 | Occupational Ther Daily Note ---
OT Current Status-Daily Note Subjective Pt in bed, agreeable to OT Tx Mental Status/Objective Acute change in mental status: 0 Inattention: 0 Disorganized thinkin Altered level of consciousness: 0 ADL-Treatment Therapy Code Descriptions/Definitions Functional [place] Measure: 0=Not Assessed/NA 4=Minimal Assistance 1=Total Assistance 5=Supervision or Setup 2=Maximal Assistance 6=Modified [place] 3=Moderate Assistance 7=Complete IndependenceSCALE: Activities may be completed with or without assistive devices. 0-Mwkvahgygv-qnrrnkb completes the activity by him/herself with no assistance from a helper. 5-Set-up or Clean-up Assistance-helper sets up or cleans up; patient completes activity. [place] assists only prior to or following the activity. 4-Supervision or Touching Assistance-helper provides verbal cues and/or touching/steadying and/or contact guard assistance as patient completes activity. Assistance may be provided throughout the activity or intermittently. 3-Partial/Moderate Assistance-helper does LESS THAN HALF the effort. [place] lifts, holds or supports trunk or limbs, but provides less than half the effort. 2-Substantial/Maximal Assistance-helper does MORE THAN HALF the effort. [place] lifts or holds trunk or limbs and provides more than half the effort. 0-Gyjidqsyc-hyabjj does ALL the effort. Patient does none of the effort to complete the activity. Or, the assistance of 2 or more helpers is required for the patient to complete the activity. If activity was not attempted, code reason: 7-Patient Refused. 9-Not Applicable-not attempted and the patient did not perform the activity before the current illness, exacerbation or injury. 10-Not Attempted due to Environmental Limitations-(lack of equipment, weather restraints, etc.). 88-Not Attempted due to Medical Conditions or Safety Concerns. Upper Body Dressing (QC): 5 Other Treatment [id number]: Pt in bed, transferred supine to sit EOB, min A. Pt donned house robe, then used FWW to transfer to table in ARU common area, SBA. OT tx focused on increasing BUE strength and activity tolerance, and problem solving. Pt completed x100 piece puzzle, 1lb wrist weights donned bilaterally while edge pieces were complete, then removed as pt completed inside pieces. Pt required moderate assistance overall with problem solving which pieces fit where. Pt returned to her room using FWW, SBA. Post tx, pt in recliner, call light in reach and all needs met. Chair alarm activated. [id number]: Pt in ARU common area with PT, OT took over tx. Pt used FWW to transfer into therapy gym, seated, SBA. OT tx focused on increasing fine motor strength and coordination and increasing problem solving skills. Pt removed beads from moderate resistance (red) theraputty, able to locate all beads without cues. Pt then completed "Perfection" task, placing shapes into correctly shaped holes. Pt able to place all correctly except 3, unable to locate errors. Once OT removed incorrect pieces, pt then able to place them in correct locations. Pt used FWW to return to her room, SBA. Post tx, pt in recliner, call light in reach and all needs met, chair alarm activated. Education OT Patient Education: Correct positioning, Energy conservation, Modified ADL techniques, Progress toward Goal/Update tx plan, Purpose of tx/functional activities, Rehab process Teaching Recipient: Patient Teaching Methods: Discussion Response to Teaching: Verbalize Understanding OT Short Term Goals Short Term Goals Time Frame: Jun 09, 2022 Shower/bathe self: 3 Lower body dressin Putting on/taking off footwear: 3 OT Correction Goals Correction Goals Time Frame: Jun 25, 2022 Acute change in mental status: 0 Inattention: 0 Disorganized thinkin Altered level of consciousness: 0 Eating (QC): 5 Oral Hygiene (QC): 6 Toileting Hygiene (QC): 6 Shower/Bathe Self (QC): 5 Upper Body Dressing (QC): 5 Lower Body Dressing (QC): 4 On/Off Footwear (QC): 4 Additional Goals: 1-Demonstrate ADL Tasks, 2-Verbalize Understanding, 3- ImproveStrength/Armand 1=Demonstrate adherence to instructed precautions during ADL tasks. 2=Patient will verbalize/demonstrate understanding of assistive devices/modifications for ADL. 3=Patient will improve strength/tolerance for activity to enable patient to perform ADL's. OT Education/Plan Problem List/Assessment Assessment: Decreased Activ Tolerance, Decreased Safety Aware, Decreased UE Strength, Impaired Cognition, Impaired Funct Balance, Impaired I ADL's, Impaired Self-Care Skills Discharge Recommendations Plan/Recommendations: Continue POC Treatment Plan/Plan of Care Patient would benefit from OT for education, treatment and training to promote independence in ADL's, mobility, safety and/or upper extremity function for ADL's. Plan of Care: ADL Retraining, Caregiver Training, Functional Mobility, Group Exercise/Act as Ind, UE Funct Exercise/Act Treatment Duration: Jun 25, 2022 Frequency: At least 5 of 7 days/Wk (IRF) Estimated Hrs Per Day: 1.5 hours per day Agreement: Yes Rehab Potential: Fair Time/GCodes Start Time: 08:45 ([id number]) Stop Time: 14:00 ([id number]) Total Time Billed (hr/min): 90 Billed Treatment Time [id number]: 1, FA 4 [id number]: 1, FA 2 TORI PINTO OT May 26, 2022 13:04
--- NOTE | 2022-05-26 13:37 | Physical Therapy Daily Note ---
PT Daily Note-Current Subjective Pt sitting in recliner upon arrival. Pt states she didn't get lunch so SPECIALTY THERAPIST contacts Nurse & dietary to confirm. Lunch is ordered and should be to pt soon. Pain Location: No Pain Reported Section J - Health Conditions 1. Rarely or not at all 2. Occasionally 3. Frequently 4. Almost constantly 8. Unable to answer Pain Effect on Sleep: 0 Pain Interference with Therapy: 2 Pain Interference w/Day-to-Day: 2 Mental Status Patient Orientation: Person, Confused Transfers SCALE: Activities may be completed with or without assistive devices. 4-Ofxtbwpcag-inzzzxu completes the activity by him/herself with no assistance from a helper. 5-Set-up or Clean-up Assistance-helper sets up or cleans up; patient completes activity. [place] assists only prior to or following the activity. 4-Supervision or Touching Assistance-helper provides verbal cues and/or touching/steadying and/or contact guard assistance as patient completes activity. Assistance may be provided throughout the activity or intermittently. 3-Partial/Moderate Assistance-helper does LESS THAN HALF the effort. [place] lifts, holds or supports trunk or limbs, but provides less than half the effort. 2-Substantial/Maximal Assistance-helper does MORE THAN HALF the effort. [place] lifts or holds trunk or limbs and provides more than half the effort. 4-Kamydefjg-xlshrb does ALL the effort. Patient does none of the effort to complete the activity. Or, the assistance of 2 or more helpers is required for the patient to complete the activity. If activity was not attempted, code reason: 7-Patient Refused. 9-Not Applicable-not attempted and the patient did not perform the activity before the current illness, exacerbation or injury. 10-Not Attempted due to Environmental Limitations-(lack of equipment, weather restraints, etc.). 88-Not Attempted due to Medical Conditions or Safety Concerns. Sit to Stand (QC): 4 Weight Bearing Right Lower Extremity: Right Weight Bearing/Tolerated Gait Training Does the Patient Walk?: Yes Distance: 75' x2 Walk 10 feet (QC): 4 Walk 50 ft with 2 Turns(QC): 4 Gait Persons Needed: 1 Gait Assistive Device: FWW VC for safety. Treatments SPECIALTY THERAPIST assists with ordering lunch. Pt's brief is also wet so SPECIALTY THERAPIST assists with doffing and donning new brief. TF to standing and amb. in hallway before OT arrives to work with pt. Assessment Current Status: Good Progress Pt mohan. tx well. PT Short Term Goals Short Term Goals Time Frame: May 31, 2022 Roll Left & Right: 4 (SBA) Sit to lyin (Macy) Lying to sitting on side of be: 3 (Macy) Sit to stand: 4 (CGA) Chair/ary-lo-zrwmk transfer: 4 (SBA) Walk 10 feet: 4 (SBA) Walk 50 feet with two turns: 4 (SBA) Walk 150 feet: 4 (SBA) PT Saturator Operator Goals Longterm Goals PT Longterm Goals Time Frame: Jun 14, 2022 Roll Left & Right (QC): 6 Sit to Lying (QC): 4 (SBA) Lying-Sitting on Side/Bed(QC): 4 (SBA) Sit to Stand (QC): 4 (SBA) Chair/Yss-am-Dvwaw Xfer(QC): 5 Toilet Transfer (QC): 4 Car Transfer (QC): 4 (SBA) Does the Patient Walk: Yes Walk 10 feet (QC): 5 Walk 50ft with 2 Turns (QC): 5 Walk 150 ft (QC): 5 Walking 10ft on Uneven Surface: 5 1 Step (curb) (QC): 4 (CGA) 4 Steps (QC): 4 (CGA) 12 Steps (QC): 88 Picking up an Object (QC): 4 (SBA using graduate studies dean) Wheel 50 feet with 2 turns (QC: 9 Wheel 150 feet: 9 PT Plan Problem List Problem List: Activity Tolerance, Functional Strength, Safety Treatment/Plan Treatment Plan: Continue Plan of Care Treatment Plan: Bed Mobility, Education, Functional Activity Armand, Functional Strength, Group Therapy, Gait, Safety, Therapeutic Exercise, Transfers Treatment Duration: Jun 14, 2022 Frequency: At least 5 of 7 days/Wk (IRF) Estimated Hrs Per Day: 1.5 hours per day Patient and/or Family Agrees t: Yes Safety Risks/Education Patient Education: Gait Training, Correct Positioning, Safety Issues Teaching Recipient: Patient Teaching Methods: Discussion Response to Teaching: Verbalize Understanding Time/GCodes Time In: 1300 Time Out: 1330 Total Billed Treatment Time: 30 Total Billed Treatment 1, FA (20m) & GT (10m) ZANDER BRUNO SPECIALTY THERAPIST May 26, 2022 13:37
--- NOTE | 2022-05-26 15:18 | Progress Note ---
ROLANDO ARELLANO 05/26/22 1518: Progress Note CC: Debility following right hip fracture with repair HPI: This is a 76yoWF who has a h/o dementia who is s/p repair of right hip fracture sustained in a fall. Patient has dementia so details are minimal. Bowel regimen will be maintained and BP will be monitored. PLOF was use of walker at home. Patient is comfortably lying in bed and reports she is doing well overall. Pain is controlled. Patient endorses right shoulder discomfort, but it is continuing to improve with OMM. Today will provide OMM to patient for assistance with recovery ROS: General: Fatigue, Malaise Extremities: right shoulder pain Exam: General Appearance: No Apparent Distress, WD/WN, Chronically ill HEENT: PERRL/EOMI, Normal ENT Inspection, Pharynx Normal Neck: Full Range of Motion, Normal Inspection, Non Tender, Supple, Carotid Bruit Respiratory: Chest Non Tender, Lungs Clear, Normal Breath Sounds, No Accessory Muscle Use, No Respiratory Distress Cardiovascular: RRR, No Edema, No Gallop, No JVD, No Murmur, Normal Peripheral Pulses Extremity: Normal Capillary Refill, Normal Inspection, Normal Range of Motion, Non Tender, No Calf Tenderness, No Pedal Edema, hypertonic right trapezius muscle Neurologic/Psychiatric: Alert, No Motor/Sensory Deficits, Depressed Affect, Disoriented, Motor Weakness (right leg) Skin: Normal Color, Warm/Dry Lymphatic: No Adenopathy Assessment: Right hip fracture s/p repair HTN Dementia Falls Post op anemia from acute blood loss Hypertonic right trapezius muscle Plan: Soft tissue technique right trapezius NORMA GARCIA DO 05/26/224: Supervisory-Addendum Brief Verification & Attestation Participated in pt care: history, MDM, physical Personally performed: exam, history, MDM, supervision of care Care discussed with: Medical Student Procedures: n/a Results interpretation: Verified all documentation Verification and Attestation of Medical Student E/M Service A medical student performed and documented this service in my presence. I reviewed and verified all information documented by the medical student and made modifications to such information, when appropriate. I personally performed the physical exam and medical decision making. Norma Garcia, May 26, 2022,21:14 ROLANDO ARELLANO May 26, 2022 15:18 NORMA GARCIA DO May 26, 2022 21:14
[2022-05-26] MEDS: ENOXAPARIN 40 MG/0.4 ML (LOVENOX) SYR SC SCH (18:57)
[2022-05-26 20:30] VITALS: BP 120/56
[2022-05-26] MEDS: DONEPEZIL 10 MG (ARICEPT) TAB PO SCH (21:20)
--- NOTE | 2022-05-27 05:47 | PM&R Progress Note ---
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 Participating Review of Systems General: Fatigue, Malaise Neurological: Confusion Objective Exam Vital Signs Vital Signs Date Time Temp Pulse Resp B/P (MAP) Pulse Ox O2 Delivery O2 Flow Rate FiO2 05/27/22 21:10 94 Room Air 05/27/22 20:30 36.9 84 18 118/62 (80) Capillary Refill : General Appearance: No Apparent Distress, WD/WN, Chronically ill HEENT: PERRL/EOMI, Normal ENT Inspection, Pharynx Normal Neck: Full Range of Motion, Normal Inspection, Non Tender, Supple, Carotid Bruit Respiratory: Chest Non Tender, Lungs Clear, Normal Breath Sounds, No Accessory Muscle Use, No Respiratory Distress Cardiovascular: Regular Rate, Rhythm, No Edema, No Gallop, No JVD, No Murmur, Normal Peripheral Pulses Gastrointestinal: Normal Bowel Sounds, No Organomegaly, No Pulsatile Mass, Non Tender, Soft Back: Normal Inspection, No CVA Tenderness, No Vertebral Tenderness Extremity: Normal Capillary Refill, Normal Inspection, Normal Range of Motion, Non Tender, No Calf Tenderness, No Pedal Edema Neurologic/Psychiatric: Alert, No Motor/Sensory Deficits, cover stripper II-XII Norm as Tested, Depressed Affect, Disoriented, Motor Weakness (right leg) Skin: Normal Color, Warm/Dry Lymphatic: No Adenopathy Results/Procedures Lab Patient resulted labs reviewed. FIM Transfers Therapy Code Descriptions/Definitions Functional [place] Measure: 0=Not Assessed/NA 4=Minimal Assistance 1=Total Assistance 5=Supervision or Setup 2=Maximal Assistance 6=Modified [place] 3=Moderate Assistance 7=Complete IndependenceSCALE: Activities may be completed with or without assistive devices. 7-Dbmaklimxh-ndxrhqr completes the activity by him/herself with no assistance from a helper. 5-Set-up or Clean-up Assistance-helper sets up or cleans up; patient completes activity. [place] assists only prior to or following the activity. 4-Supervision or Touching Assistance-helper provides verbal cues and/or touching/steadying and/or contact guard assistance as patient completes acti vity. Assistance may be provided throughout the activity or intermittently. 3-Partial/Moderate Assistance-helper does LESS THAN HALF the effort. [place] lifts, holds or supports trunk or limbs, but provides less than half the effort. 2-Substantial/Maximal Assistance-helper does MORE THAN HALF the effort. [place] lifts or holds trunk or limbs and provides more than half the effort. 1-Zdvikwfpd-dpogrb does ALL the effort. Patient does none of the effort to complete the activity. Or, the assistance of 2 or more helpers is required for the patient to complete the activity. If activity was not attempted, code reason: 7-Patient Refused. 9-Not Applicable-not attempted and the patient did not perform the activity before the current illness, exacerbation or injury. 10-Not Attempted due to Environmental Limitations-(lack of equipment, weather restraints, etc.). 88-Not Attempted due to Medical Conditions or Safety Concerns. Roll Left to Right (QC): 4 Sit to Lying (QC): 3 Sit to Stand (QC): 4 Chair/Qyh-io-Oaksy Xfer(QC): 4 Car Transfer (QC): 3 Gait Training Does the Patient Walk?: Yes Distance: 75' x2 Walk 10 feet (QC): 4 Walk 50 ft with 2 Turns(QC): 4 Walk 150 ft (QC): 4 Walking 10ft/uneven surface-QC: 4 Gait Persons Needed: 1 Gait Assistive Device: FWW Wheelchair Training Does the Pt Use a Wheelchair?: No Wheel 50 ft with 2 turns (QC): 9 Wheel 150 ft (QC): 9 Type of Wheelchair: N/A Stair Training #of Steps: 1 1 Step (curb) (QC): 4 4 Steps (QC): 88 12 Steps (QC): 88 Balance Picking up an Object (QC): 4 (CGA using a rug cutter helper) ADL-Treatment Eating (QC): 5 (set up with cutting food and opening containers.) Oral Hygiene (QC): 4 (SBA seated at sink.) Shower/Bathe Self (QC): 3 (Min A with washing buttocks. Moderate verbal cues to follow precautions throughout shower, and VCs for using LH sponge for LEs.) Upper Body Dressing (QC): 5 Lower Body Dressing (QC): 2 (Max A using dressing stick. Pt required max verbal cues and hand over hand assistance for each step.) On/Off Footwear (QC): 2 (Max A with slip on shoes.) Toileting Hygiene (QC): 3 (Min A with posterior hyigne, and min A standing bal ance.) Assessment/Plan Assessment and Plan Assess & Plan/Chief Complaint Assessment: Right hip fracture s/p repair HTN Dementia Falls Post op anemia from acute blood loss Incontinence Plan: Pain control Monitor hgb Fall risk PT OT 05/24/2022: Monitor BP 05/25/2022: Supportive care 05/26/2022: Monitor pain 05/27/2022: Supportive care Incontinence care (1) Fracture of femoral neck, right, closed Status: Acute (2) Hypertension Status: Chronic (3) Dementia Status: Chronic (4) Fall on same level Status: Acute CULLEN GARCIA DO May 27, 2022 05:47
[2022-05-27 07:37] VITALS: BP 138/66
--- NOTE | 2022-05-27 08:21 | Occupational Ther Daily Note ---
OT Current Status-Daily Note Subjective Pt in bed, agreeable to OT Tx. Pt states she slept well last night. Pt prefers to shower tomorrow instead of today. Pt recalled 0/3 hip precautions throughout tx Mental Status/Objective Patient Orientation: Person, Confused, Place, Situation Acute change in mental status: 0 Inattention: 0 Disorganized thinkin Altered level of consciousness: 0 ADL-Treatment Therapy Code Descriptions/Definitions Functional [place] Measure: 0=Not Assessed/NA 4=Minimal Assistance 1=Total Assistance 5=Supervision or Setup 2=Maximal Assistance 6=Modified [place] 3=Moderate Assistance 7=Complete IndependenceSCALE: Activities may be completed with or without assistive devices. 2-Lfinpsggui-mhzollt completes the activity by him/herself with no assistance from a helper. 5-Set-up or Clean-up Assistance-helper sets up or cleans up; patient completes activity. [place] assists only prior to or following the activity. 4-Supervision or Touching Assistance-helper provides verbal cues and/or touching/steadying and/or contact guard assistance as patient completes activity. Assistance may be provided throughout the activity or intermittently. 3-Partial/Moderate Assistance-helper does LESS THAN HALF the effort. [place] li fts, holds or supports trunk or limbs, but provides less than half the effort. 2-Substantial/Maximal Assistance-helper does MORE THAN HALF the effort. [place] lifts or holds trunk or limbs and provides more than half the effort. 3-Dpybjihmz-bvpdru does ALL the effort. Patient does none of the effort to complete the activity. Or, the assistance of 2 or more helpers is required for the patient to complete the activity. If activity was not attempted, code reason: 7-Patient Refused. 9-Not Applicable-not attempted and the patient did not perform the activity before the current illness, exacerbation or injury. 10-Not Attempted due to Environmental Limitations-(lack of equipment, weather restraints, etc.). 88-Not Attempted due to Medical Conditions or Safety Concerns. Lower Body Dressing (QC): 2 On/Off Footwear: 2 Other Treatment Pt in bed, transferred supine to sit EOB, SBA. Pants and footwear donned, max A. Pt then used FWW to perform functional mobility to therapy gym, SBA. OT Tx focused on increasing BUE Strength and activity tolerance. Pt placed x100 pegs into foam pegboard, alternating hands, 1lb wrist weight Bilaterally. Pt required skilled verbal cues throughout task in order to alternate hands throughout task. Pt returned to her room, SBA with FWW. VCs required for direction in order to locate her room. Post tx, pt in recliner, call light in reach and all needs met. chair alarm activated. Education OT Patient Education: Correct positioning, Energy conservation, Modified ADL techniques, Progress toward Goal/Update tx plan, Purpose of tx/functional activities, Rehab process Teaching Recipient: Patient Teaching Methods: Discussion Response to Teaching: Verbalize Understanding OT Short Term Goals Short Term Goals Time Frame: Jun 09, 2022 Shower/bathe self: 3 Lower body dressin Putting on/taking off footwear: 3 OT Nursing Home Goals Nursing Home Goals Time Frame: Jun 25, 2022 Acute change in mental status: 0 Inattention: 0 Disorganized thinkin Altered level of consciousness: 0 Eating (QC): 5 Oral Hygiene (QC): 6 Toileting Hygiene (QC): 6 Shower/Bathe Self (QC): 5 Upper Body Dressing (QC): 5 Lower Body Dressing (QC): 4 On/Off Footwear (QC): 4 Additional Goals: 1-Demonstrate ADL Tasks, 2-Verbalize Understanding, 3- ImproveStrength/Armand 1=Demonstrate adherence to instructed precautions during ADL tasks. 2=Patient will verbalize/demonstrate understanding of assistive devices/modifications for ADL. 3=Patient will improve strength/tolerance for activity to enable patient to perform ADL's. OT Education/Plan Problem List/Assessment Assessment: Decreased Activ Tolerance, Decreased UE Strength, Impaired Cognition, Impaired Funct Balance, Impaired I ADL's, Impaired Self-Care Skills Discharge Recommendations Plan/Recommendations: Continue POC Treatment Plan/Plan of Care Patient would benefit from OT for education, treatment and training to promote independence in ADL's, mobility, safety and/or upper extremity function for ADL's. Plan of Care: ADL Retraining, Caregiver Training, Functional Mobility, Group Exercise/Act as Ind, UE Funct Exercise/Act Treatment Duration: Jun 25, 2022 Frequency: At least 5 of 7 days/Wk (IRF) Estimated Hrs Per Day: 1.5 hours per day Agreement: Yes Rehab Potential: Fair Time/GCodes Start Time: 08:00 Stop Time: 09:00 Total Time Billed (hr/min): 60 Billed Treatment Time 1, ADL (15'), FA 3 (45') TORI PINTO OT May 27, 2022 08:21
[2022-05-27] MEDS: ASPIRIN E.C. 81 MG (ECOTRIN) TAB PO SCH (08:44)
[2022-05-27] MEDS: SENNOSIDES 8.6 MG (SENOKOT) TAB PO SCH ×2 (08:44→21:02)
[2022-05-27] MEDS: MEMANTINE 10 MG (NAMENDA) TABLET PO SCH ×2 (08:44→21:02)
[2022-05-27] MEDS: SENNA W/DOCUSATE (SENOKOT S) TABLET PO SCH ×2 (08:44→21:02)
[2022-05-27] MEDS: LORATADINE (CLARITIN) 10 MG TAB PO SCH (08:44)
[2022-05-27] MEDS: LOSARTAN 25 MG (COZAAR) TAB PO SCH (08:44)
[2022-05-27] MEDS: ACETAMINOPHEN 325 MG TABLET PO SCH ×3 (08:44→21:02)
[2022-05-27] MEDS: DOCUSATE SODIUM 100 MG (COLACE) CAP PO SCH ×2 (08:46→21:02)
[2022-05-27] MEDS: polyethylene glycoL POWDER 17 GM (MIRALAX) PACK PO SCH ×2 (08:46→21:00)
--- NOTE | 2022-05-27 11:03 | Physical Therapy Daily Note ---
PT Daily Note-Current Subjective Pt. agreeable to rx, needs reminded and instructed throughout rx for all tasks. Pt. followed ex with tactile cues and demonstration. However pt. had large incont BM and although warned when this COATING OPERATOR saw her doing so, pt reached around multiple times touching the BM, had it on her hands and needed thorough cleaning assist for all. Pt. attempting in part to clean herself but it created an unsanitary situation. Pt. did not c/o pain during Rx Pain Location: No Pain Reported Section J - Health Conditions 1. Rarely or not at all 2. Occasionally 3. Frequently 4. Almost constantly 8. Unable to answer Pain Effect on Sleep: 0 Pain Interference with Therapy: 2 Pain Interference w/Day-to-Day: 2 Appearance open wound with dressing on right heel , dressing is falling off and wound draining on pts slipper which is ill fitting secondary to the wound/dresssing bulkiness, nurse notified, pts daughter present for part of Rx and wants WC nurse to assess Mental Status Patient Orientation: Confused Transfers SCALE: Activities may be completed with or without assistive devices. 3-Wdhssbpdod-jmrautt completes the activity by him/herself with no assistance from a helper. 5-Set-up or Clean-up Assistance-helper sets up or cleans up; patient completes activity. [place] assists only prior to or following the activity. 4-Supervision or Touching Assistance-helper provides verbal cues and/or touchi ng/steadying and/or contact guard assistance as patient completes activity. Assistance may be provided throughout the activity or intermittently. 3-Partial/Moderate Assistance-helper does LESS THAN HALF the effort. [place] lifts, holds or supports trunk or limbs, but provides less than half the effort. 2-Substantial/Maximal Assistance-helper does MORE THAN HALF the effort. [place] lifts or holds trunk or limbs and provides more than half the effort. 6-Ezhtebasg-vqjcst does ALL the effort. Patient does none of the effort to complete the activity. Or, the assistance of 2 or more helpers is required for the patient to complete the activity. If activity was not attempted, code reason: 7-Patient Refused. 9-Not Applicable-not attempted and the patient did not perform the activity before the current illness, exacerbation or injury. 10-Not Attempted due to Environmental Limitations-(lack of equipment, weather restraints, etc.). 88-Not Attempted due to Medical Conditions or Safety Concerns. Roll Left & Right (QC): 6 Sit to Lying (QC): 4 Lying to Sitting/Side of Bed(Q: 4 Sit to Stand (QC): 6 Chair/Lht-qv-Jctlz Xfer(QC): 4 Toilet Transfer (QC): 5 bed TRF on firm surface min asst with affected hip, pt attempted this multiple trials but required assistance Weight Bearing Right Lower Extremity: Right Weight Bearing/Tolerated Gait Training Does the Patient Walk?: Yes Walk 10 feet (QC): 4 Walk 50 ft with 2 Turns(QC): 4 Walk 150 ft (QC): 4 Gait Persons Needed: 1 Gait Assistive Device: FWW needs reminded of safety cues and to keep using FWW even while turning etc. Pt. needs guided and directed as to where to turn etc to reach destination Exercises Supine Ex: Ankle pumps, Quad Set, Rolling, Glut sets, Heel Slides, Short Arc Quads, Straight leg raise (assisted), Hip abd/add (assisted) Supine Reps: 15 Seated Therapy Exercises: Ankle pumps, Sit to stand, Long arc quads, Hip abd/add Seated Reps: 15 Treatments TRFs, therex, gait, pt. incont of BM and required full clothing change and partial bath, pt. reaching behind to attempt to assist but then with BM all over hands and situation threatened to get BM in the wound on pts heel . Nurse advised of these happenings. Pt. soiled her pants during incont BM. Assessment Current Status: Fair Progress Pts. cognition and memory level greatly inhibits her function and safety. The i ncontinence limits pts DC planning options more than likely. PT Short Term Goals Short Term Goals Time Frame: May 31, 2022 Roll Left & Right: 4 (SBA) Sit to lyin (Macy) Lying to sitting on side of be: 3 (Macy) Sit to stand: 4 (CGA) Chair/mkh-jw-hneov transfer: 4 (SBA) Walk 10 feet: 4 (SBA) Walk 50 feet with two turns: 4 (SBA) Walk 150 feet: 4 (SBA) PT Ortho Rn Goals Ortho Rn Goals PT Ortho Rn Goals Time Frame: Jun 14, 2022 Roll Left & Right (QC): 6 Sit to Lying (QC): 4 (SBA) Lying-Sitting on Side/Bed(QC): 4 (SBA) Sit to Stand (QC): 4 (SBA) Chair/Oyw-oj-Touza Xfer(QC): 5 Toilet Transfer (QC): 4 Car Transfer (QC): 4 (SBA) Does the Patient Walk: Yes Walk 10 feet (QC): 5 Walk 50ft with 2 Turns (QC): 5 Walk 150 ft (QC): 5 Walking 10ft on Uneven Surface: 5 1 Step (curb) (QC): 4 (CGA) 4 Steps (QC): 4 (CGA) 12 Steps (QC): 88 Picking up an Object (QC): 4 (SBA using telephone advice nurse) Wheel 50 feet with 2 turns (QC: 9 Wheel 150 feet: 9 PT Plan Treatment/Plan Treatment Plan: Continue Plan of Care Treatment Plan: Bed Mobility, Education, Functional Activity Armand, Functional Strength, Group Therapy, Gait, Safety, Therapeutic Exercise, Transfers Treatment Duration: Jun 14, 2022 Frequency: At least 5 of 7 days/Wk (IRF) Estimated Hrs Per Day: 1.5 hours per day Patient and/or Family Agrees t: Yes Safety Risks/Education Patient Education: Gait Training, Transfer Techniques, Reviewed Precautions, Correct Positioning, Disease Process, Safety Issues Teaching Recipient: Patient Teaching Methods: Demonstration, Discussion Response to Teaching: Verbalize Understanding, Unable to Comprehend, Reinforcement Needed Time/GCodes Time In: 1000 Time Out: 1100 Total Billed Treatment Time: 60 Total Billed Treatment 1,FA35m,GT15m,EX10m CESAR CANO COATING OPERATOR May 27, 2022 11:03
--- NOTE | 2022-05-27 13:55 | Physical Therapy Daily Note ---
PT Daily Note-Current Subjective Pt. agrees to Rx but asks to go to bed after rx stating she is tired and wants to get in bed and read Pain Location: No Pain Reported Section J - Health Conditions 1. Rarely or not at all 2. Occasionally 3. Frequently 4. Almost constantly 8. Unable to answer Pain Effect on Sleep: 0 Pain Interference with Therapy: 2 Pain Interference w/Day-to-Day: 2 Mental Status Patient Orientation: Confused Transfers SCALE: Activities may be completed with or without assistive devices. 2-Ygvymlopdm-nsritad completes the activity by him/herself with no assistance from a helper. 5-Set-up or Clean-up Assistance-helper sets up or cleans up; patient completes a ctivity. [place] assists only prior to or following the activity. 4-Supervision or Touching Assistance-helper provides verbal cues and/or touching/steadying and/or contact guard assistance as patient completes activity. Assistance may be provided throughout the activity or intermittently. 3-Partial/Moderate Assistance-helper does LESS THAN HALF the effort. [place] lifts, holds or supports trunk or limbs, but provides less than half the effort. 2-Substantial/Maximal Assistance-helper does MORE THAN HALF the effort. [place] lifts or holds trunk or limbs and provides more than half the effort. 4-Hxaglyhta-xzvdpt does ALL the effort. Patient does none of the effort to complete the activity. Or, the assistance of 2 or more helpers is required for the patient to complete the activity. If activity was not attempted, code reason: 7-Patient Refused. 9-Not Applicable-not attempted and the patient did not perform the activity before the current illness, exacerbation or injury. 10-Not Attempted due to Environmental Limitations-(lack of equipment, weather restraints, etc.). 88-Not Attempted due to Medical Conditions or Safety Concerns. Sit to Lying (QC): 4 Sit to Stand (QC): 6 sit to stand SBA, sit to supine CGA Weight Bearing Right Lower Extremity: Right Weight Bearing/Tolerated Gait Training Does the Patient Walk?: Yes Gait Assistive Device: FWW [id number], 50x1 CGA Exercises Supine Ex: Quad Set, Glut sets, Heel Slides, Hip abd/add Supine Reps: 10 Seated Therapy Exercises: Ankle pumps, Sit to stand, Long arc quads Seated Reps: 12 Treatments TRFs, gait, hip prec review, in bed with heels free and call michel at hand as well as bed alarm on Assessment Current Status: Good Progress PT Short Term Goals Short Term Goals Time Frame: May 31, 2022 Roll Left & Right: 4 (SBA) Sit to lyin (Macy) Lying to sitting on side of be: 3 (Macy) Sit to stand: 4 (CGA) Chair/mda-bv-ttsqk transfer: 4 (SBA) Walk 10 feet: 4 (SBA) Walk 50 feet with two turns: 4 (SBA) Walk 150 feet: 4 (SBA) PT Assistant Professor Of Philosophy Goals Assistant Professor Of Philosophy Goals PT Assistant Professor Of Philosophy Goals Time Frame: Jun 14, 2022 Roll Left & Right (QC): 6 Sit to Lying (QC): 4 (SBA) Lying-Sitting on Side/Bed(QC): 4 (SBA) Sit to Stand (QC): 4 (SBA) Chair/Huo-io-Tqkvm Xfer(QC): 5 Toilet Transfer (QC): 4 Car Transfer (QC): 4 (SBA) Does the Patient Walk: Yes Walk 10 feet (QC): 5 Walk 50ft with 2 Turns (QC): 5 Walk 150 ft (QC): 5 Walking 10ft on Uneven Surface: 5 1 Step (curb) (QC): 4 (CGA) 4 Steps (QC): 4 (CGA) 12 Steps (QC): 88 Picking up an Object (QC): 4 (SBA using manager spring) Wheel 50 feet with 2 turns (QC: 9 Wheel 150 feet: 9 PT Plan Treatment/Plan Treatment Plan: Continue Plan of Care Treatment Plan: Bed Mobility, Education, Functional Activity Armand, Functional Strength, Group Therapy, Gait, Safety, Therapeutic Exercise, Transfers Treatment Duration: Jun 14, 2022 Frequency: At least 5 of 7 days/Wk (IRF) Estimated Hrs Per Day: 1.5 hours per day Patient and/or Family Agrees t: Yes Safety Risks/Education Patient Education: Gait Training, Transfer Techniques, Reviewed Precautions, Correct Positioning, Disease Process, Safety Issues Teaching Recipient: Patient Teaching Methods: Demonstration, Discussion Response to Teaching: Verbalize Understanding, Unable to Comprehend, Reinforcement Needed cognition issues and hard of hearing Time/GCodes Time In: 1320 Time Out: 1350 Total Billed Treatment Time: 30 Total Billed Treatment 1,GT15m,EX15m CESAR CANO SENIOR ELECTRICAL DESIGNER May 27, 2022 13:55
--- NOTE | 2022-05-27 14:08 | Occupational Ther Daily Note ---
OT Current Status-Daily Note Subjective Pt up in recliner, agreeable to OT Tx. Mental Status/Objective Acute change in mental status: 0 Inattention: 0 Disorganized thinkin Altered level of consciousness: 0 ADL-Treatment Therapy Code Descriptions/Definitions Functional [place] Measure: 0=Not Assessed/NA 4=Minimal Assistance 1=Total Assistance 5=Supervision or Setup 2=Maximal Assistance 6=Modified [place] 3=Moderate Assistance 7=Complete IndependenceSCALE: Activities may be completed with or without assistive devices. 0-Bjakmihalo-vsfrizf completes the activity by him/herself with no assistance from a helper. 5-Set-up or Clean-up Assistance-helper sets up or cleans up; patient completes activity. [place] assists only prior to or following the activity. 4-Supervision or Touching Assistance-helper provides verbal cues and/or touching/steadying and/or contact guard assistance as patient completes activity. Assistance may be provided throughout the activity or intermittently. 3-Partial/Moderate Assistance-helper does LESS THAN HALF the effort. [place] lifts, holds or supports trunk or limbs, but provides less than half the effort. 2-Substantial/Maximal Assistance-helper does MORE THAN HALF the effort. [place] lifts or holds trunk or limbs and provides more than half the effort. 0-Pwldyurja-rpmmuw does ALL the effort. Patient does none of the effort to complete the activity. Or, the assistance of 2 or more helpers is required for the patient to complete the activity. If activity was not attempted, code reason: 7-Patient Refused. 9-Not Applicable-not attempted and the patient did not perform the activity before the current illness, exacerbation or injury. 10-Not Attempted due to Environmental Limitations-(lack of equipment, weather restraints, etc.). 88-Not Attempted due to Medical Conditions or Safety Concerns. Other Treatment OT tx with focus on increasing BUE fine motor strength and coordination. Pt removed beads from heavy resistance (green) theraputty, able to locate all beads without cues. Post tx, pt in recliner, call light in reach and all needs met, chair alarm activated. Education OT Patient Education: Correct positioning, Energy conservation, Modified ADL techniques, Progress toward Goal/Update tx plan, Purpose of tx/functional activities, Rehab process Teaching Recipient: Patient Teaching Methods: Discussion Response to Teaching: Verbalize Understanding OT Short Term Goals Short Term Goals Time Frame: Jun 09, 2022 Shower/bathe self: 3 Lower body dressin Putting on/taking off footwear: 3 OT Manager Payroll Goals Manager Payroll Goals Time Frame: Jun 25, 2022 Acute change in mental status: 0 Inattention: 0 Disorganized thinkin Altered level of consciousness: 0 Eating (QC): 5 Oral Hygiene (QC): 6 Toileting Hygiene (QC): 6 Shower/Bathe Self (QC): 5 Upper Body Dressing (QC): 5 Lower Body Dressing (QC): 4 On/Off Footwear (QC): 4 Additional Goals: 1-Demonstrate ADL Tasks, 2-Verbalize Understanding, 3- ImproveStrength/[place] 1=Demonstrate adherence to instructed precautions during ADL tasks. 2=Patient will verbalize/demonstrate understanding of assistive devices/modifications for ADL. 3=Patient will improve strength/tolerance for activity to enable patient to perform ADL's. OT Education/Plan Problem List/Assessment Assessment: Decreased Activ Tolerance, Decreased Safety Aware, Decreased UE Strength, Impaired Cognition, Impaired Funct Balance, Impaired I ADL's, Impaired Self-Care Skills Discharge Recommendations Plan/Recommendations: Continue POC Treatment Plan/Plan of Care Patient would benefit from OT for education, treatment and training to promote independence in ADL's, mobility, safety and/or upper extremity function for ADL's. Plan of Care: ADL Retraining, Caregiver Training, Functional Mobility, Group Exercise/Act as Ind, UE Funct Exercise/Act Treatment Duration: Jun 25, 2022 Frequency: At least 5 of 7 days/Wk (IRF) Estimated Hrs Per Day: 1.5 hours per day Agreement: Yes Rehab Potential: Fair Time/GCodes Start Time: 12:35 Stop Time: 13:05 Total Time Billed (hr/min): 30 Billed Treatment Time 1, FA 2 TORI PINTO OT May 27, 2022 14:08
--- NOTE | 2022-05-27 14:53 | Wound Care Assessment ---
Wound Care Assessment Date Seen by Provider: May 27, 2022 Time Seen by Provider: 22:30 Chief Complaint wound on right heel HPI Maricruz Rodriguez is a 76y/o F w/ a PMH of right hip fracture s/p repair, dementia, and HTN who is being seen today due to a wound present on her right heel. Pt has dementia and was not able to give much history. She is currently in inpt rehab due to debility from a right hip fracture s/p repair. Nursing from inpt rehab unit reports that they just noticed the wound on her right heel today as there was a drainage from the area that had soaked her bed sheets. Daughter had told nurse that pt did not have any wounds prior to her admission. Wound care nurse states that pt had the pressure wound on her heel since the surgery on 05/19. Pt has not been complaining about any pain in the area and it was not warm to the touch. Also was a concern about a wound on the medial aspect of the 1st MTP joint as there is a callus there that had some serosanguineous fluid on there as well. No wound seen there upon inspection and I believe the fluid was likely from the heal wound. Bilateral 1 MTH with prominence due to bunions. Stage 1 pressure changes to lateral R. foot as well. She was living at home with her daughter before the fall. Plan to cushion all areas of concern with allevyn bordered foam and Primo boots. see HPI Smoking Status: Unknown if Ever Smoked Review of Systems General: No Chills, No Other (fever) Musculoskeletal: No: leg pain Neurological: Confusion (due to dementia); No: Numbness Other systems Limited ROS due to dementia Exam Vital Signs Date Time Temp Pulse Resp B/P (MAP) Pulse Ox O2 Delivery O2 Flow Rate FiO2 05/27/22 07:37 36.6 85 16 138/66 (90) 97 Room Air Capillary Refill : General Appearance: WD/WN, no apparent distress Cardiovascular: regular rate, rhythm, no murmur Respiratory: lungs clear, normal breath sounds Extremities: no calf tenderness, pedal edema Neurologic/Psychiatric: alert, normal mood/affect; No oriented x 3; other (Poor historian (dementia) Oriented to self only) Skin: cool (Bilateral feet cool to touch) Skin Character: drainage (R. heel) 5.4cm x 5.1cm x 0.2cm stage 3 pressure ulcer on right heel, large serosangeinous drainage, no tunneling or undermining, no granulation tissue, no necrotic ti ssue, and no epithelialization. Overlying skin was still present and was removed large calluses present on the medial aspect over b/l MTP joints. No sign of wounds present there. Stage 1 pressure changes to R. lateral foot Assessment/Plan/Dx Pressure ulcer (stage 3 R. heel and stage 1 lateral R. foot) -overlying skin removed w/ forceps and scissors -aquacell and bordered foam dressing placed -change dressings daily -pt will need to wear primo boots as often as possible to keep pressure off of area and to prevent ulcers from forming in any other location on her feet -she was given these instructions as well but unsure how well she will follow them due to her dementia Right hip fracture s/p repair -managed by ortho Dementia -managed by medicine Debility due to right hip fracture s/p repair -managed by medicine PEM Protein shakes already ordered Supervisory-Addendum Brief Verification & Attestation Participated in pt care: history, MDM, physical Personally performed: exam, history, MDM, supervision of care Care discussed with: Medical Student Procedures: n/a Results interpretation: Verified all documentation SERINA Patton MD May 27, 2022 14:53 CARMELA ORTEGA MD May 27, 2022 15:35
[2022-05-27] MEDS: ENOXAPARIN 40 MG/0.4 ML (LOVENOX) SYR SC SCH (15:52)
--- NOTE | 2022-05-27 20:03 | Progress Note ---
Standard Progress Note Progress Notes/Assess & Plan Date Seen by a Provider: May 27, 2022 Time Seen by a Provider: 20:03 Progress/Assessment & Plan doing well Vital Signs Date Time Temp Pulse Resp B/P (MAP) Pulse Ox O2 Delivery O2 Flow Rate FiO2 05/26/22 07:40 36.5 64 16 137/63 (87) 96 05/25/22 21:15 Room Air 05/25/22 19:38 36.5 83 20 131/64 (86) 96 Room Air RLE--no calf tnderness neg Kathryn's able to perform SLR s/p R hip bipolar continue PT/OT Final Diagnosis no complaints R hip incision clean and dry no calf tenderness neg MEREDITH Sarabia MD May 27, 2022 20:03
[2022-05-27 20:30] VITALS: BP 118/62
[2022-05-27] MEDS: DONEPEZIL 10 MG (ARICEPT) TAB PO SCH (21:02)
--- NOTE | 2022-05-28 05:53 | PM&R Progress Note ---
Subjective HPI/CC On Admission Date Seen by Provider: May 28, 2022 Time Seen by Provider: 12:30 Subjective/Events-last exam 05/28/2022: No major issues BM+ Incontinence No pain 05/27/2022: No major issues Participation is good Incontinence noted no changes No falls 05/26/2022: Bowels moved 3 days ago She lost a tooth so her daughter is working on that with dentist No other concerns Dementia procludes anything but a poor prognosis 05/25/2022: Pt is inctotinent of loose stools Overall feels like she is doing a little better Decreased pain Checked meds and labs 05/24/2022: Bowels are moving yesterday No pain 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 anything but a poor prognosis detention Participating Review of Systems General: Fatigue, Malaise Genitourinary: Incontinence Musculoskeletal: leg pain Neurological: Confusion Objective Exam Vital Signs Vital Signs Date Time Temp Pulse Resp B/P (MAP) Pulse Ox O2 Delivery O2 Flow Rate FiO2 05/28/22 21:38 36.7 89 20 118/69 (85) 95 Room Air Capillary Refill : General Appearance: No Apparent Distress, WD/WN, Chronically ill HEENT: PERRL/EOMI, Normal ENT Inspection, Pharynx Normal Neck: Full Range of Motion, Normal Inspection, Non Tender, Supple, Carotid Bruit Respiratory: Chest Non Tender, Lungs Clear, Normal Breath Sounds, No Accessory Muscle Use, No Respiratory Distress Cardiovascular: Regular Rate, Rhythm, No Edema, No Gallop, No JVD, No Murmur, Normal Peripheral Pulses Gastrointestinal: Normal Bowel Sounds, No Organomegaly, No Pulsatile Mass, Non Tender, Soft Back: Normal Inspection, No CVA Tenderness, No Vertebral Tenderness Extremity: Normal Capillary Refill, Normal Inspection, Normal Range of Motion, Non Tender, No Calf Tenderness, No Pedal Edema Neurologic/Psychiatric: Alert, No Motor/Sensory Deficits, feeder operator II-XII Norm as Tested, Depressed Affect, Disoriented, Motor Weakness (right leg) Skin: Normal Color, Warm/Dry Lymphatic: No Adenopathy Results/Procedures Lab Patient resulted labs reviewed. FIM Transfers Therapy Code Descriptions/Definitions Functional [place] Measure: 0=Not Assessed/NA 4=Minimal Assistance 1=Total Assistance 5=Supervision or Setup 2=Maximal Assistance 6=Modified [place] 3=Moderate Assistance 7=Complete IndependenceSCALE: Activities may be completed with or without assistive devices. 7-Vzbbbysecv-ychaemy completes the activity by him/herself with no assistance from a helper. 5-Set-up or Clean-up Assistance-helper sets up or cleans up; patient completes activity. [place] assists only prior to or following the activity. 4-Supervision or Touching Assistance-helper provides verbal cues and/or touching/steadying and/or contact guard assistance as patient completes acti vity. Assistance may be provided throughout the activity or intermittently. 3-Partial/Moderate Assistance-helper does LESS THAN HALF the effort. [place] lifts, holds or supports trunk or limbs, but provides less than half the effort. 2-Substantial/Maximal Assistance-helper does MORE THAN HALF the effort. [place] lifts or holds trunk or limbs and provides more than half the effort. 6-Hcrelzsef-dlhcrn does ALL the effort. Patient does none of the effort to complete the activity. Or, the assistance of 2 or more helpers is required for the patient to complete the activity. If activity was not attempted, code reason: 7-Patient Refused. 9-Not Applicable-not attempted and the patient did not perform the activity before the current illness, exacerbation or injury. 10-Not Attempted due to Environmental Limitations-(lack of equipment, weather restraints, etc.). 88-Not Attempted due to Medical Conditions or Safety Concerns. Roll Left to Right (QC): 6 Sit to Lying (QC): 4 Sit to Stand (QC): 6 Chair/Tqw-wi-Kbybp Xfer(QC): 4 Car Transfer (QC): 3 Gait Training Does the Patient Walk?: Yes Distance: 75' x2 Walk 10 feet (QC): 4 Walk 50 ft with 2 Turns(QC): 4 Walk 150 ft (QC): 4 Walking 10ft/uneven surface-QC: 4 Gait Persons Needed: 1 Gait Assistive Device: FWW Wheelchair Training Does the Pt Use a Wheelchair?: No Wheel 50 ft with 2 turns (QC): 9 Wheel 150 ft (QC): 9 Type of Wheelchair: N/A Stair Training #of Steps: 1 1 Step (curb) (QC): 4 4 Steps (QC): 88 12 Steps (QC): 88 Balance Picking up an Object (QC): 4 (CGA using a orange picker machine operator) ADL-Treatment Eating (QC): 5 (set up with cutting food and opening containers.) Oral Hygiene (QC): 4 (SBA seated at sink.) Shower/Bathe Self (QC): 3 (Min A with washing buttocks. Moderate verbal cues to follow precautions throughout shower, and VCs for using LH sponge for LEs.) Upper Body Dressing (QC): 5 Lower Body Dressing (QC): 2 On/Off Footwear (QC): 2 Toileting Hygiene (QC): 3 (Min A with posterior hyigne, and min A standing balance.) Assessment/Plan Assessment and Plan Assess & Plan/Chief Complaint Assessment: Right hip fracture s/p repair HTN Dementia Falls Post op anemia from acute blood loss Incontinence Plan: Pain control Monitor hgb Fall risk PT OT 05/24/2022: Monitor BP 05/25/2022: Supportive care 05/26/2022: Monitor pain 05/27/2022: Supportive care Incontinence care 05/28/2022: Monitor closely (1) Fracture of femoral neck, right, closed Status: Acute (2) Hypertension Status: Chronic (3) Dementia Status: Chronic (4) Fall on same level Status: Acute CULLEN GARCIA DO May 28, 2022 05:53
[2022-05-28 07:53] VITALS: BP 131/63
--- NOTE | 2022-05-28 08:44 | Occupational Ther Daily Note ---
OT Current Status-Daily Note Subjective Pt in bed, agreeable to OT tx with focus on ADLs Mental Status/Objective Acute change in mental status: 0 Inattention: 0 Disorganized thinkin Altered level of consciousness: 0 ADL-Treatment Therapy Code Descriptions/Definitions Functional [place] Measure: 0=Not Assessed/NA 4=Minimal Assistance 1=Total Assistance 5=Supervision or Setup 2=Maximal Assistance 6=Modified [place] 3=Moderate Assistance 7=Complete IndependenceSCALE: Activities may be completed with or without assistive devices. 0-Dksibywzib-yrbrllt completes the activity by him/herself with no assistance from a helper. 5-Set-up or Clean-up Assistance-helper sets up or cleans up; patient completes activity. [place] assists only prior to or following the activity. 4-Supervision or Touching Assistance-helper provides verbal cues and/or touching/steadying and/or contact guard assistance as patient completes activity. Assistance may be provided throughout the activity or intermittently. 3-Partial/Moderate Assistance-helper does LESS THAN HALF the effort. [place] lifts, holds or supports trunk or limbs, but provides less than half the effort. 2-Substantial/Maximal Assistance-helper does MORE THAN HALF the effort. [place] lifts or holds trunk or limbs and provides more than half the effort. 9-Ixbknfhmc-becyph does ALL the effort. Patient does none of the effort to complete the activity. Or, the assistance of 2 or more helpers is required for the patient to complete the activity. If activity was not attempted, code reason: 7-Patient Refused. 9-Not Applicable-not attempted and the patient did not perform the activity before the current illness, exacerbation or injury. 10-Not Attempted due to Environmental Limitations-(lack of equipment, weather restraints, etc.). 88-Not Attempted due to Medical Conditions or Safety Concerns. Eating (QC): 6 Shower/Bathe Self (QC): 3 (assist with drying BLE lower legs/feet, and washing/drying buttocks.) Upper Body Dressing (QC): 5 Lower Body Dressing (QC): 2 (Max A. Pt unable to recall how to use AE for LE dressing.) On/Off Footwear: 2 (Max A with slip on shoes.) Toileting Hygiene (QC): 3 (Min A, pt able to perform pant hike with VCs and min A with hygiene for thoroughness.) Toilet Transfer (QC): 4 (SBA to [facility] over toilet.) Other Treatment Pt in bed, transferred supine to sit EOB with SBA. Pt then used FWW to transfer to [facility] over toilet, SBA. Pt completed toileting, then transferred to [place] to complete showering and dressing. Pt returned to recliner, noted dressing on R heel coming off after shower, nurse aware and changed dressing. In order to increase fine motor strength and coordination, pt removed beads from heavy resistance (green) theraputty, able to locate all beads without cues. Post tx, pt in recliner, call light in reach and all needs met, chair alarm activated. Education OT Patient Education: Correct positioning, Energy conservation, Modified ADL techniques, Progress toward Goal/Update tx plan, Purpose of tx/functional activities, Reviewed precautions, Rehab process, Safety issues, Transfer techniques, Use of adapted equipment Teaching Recipient: Patient Teaching Methods: Discussion Response to Teaching: Reinforcement Needed OT Short Term Goals Short Term Goals Time Frame: Jun 09, 2022 Shower/bathe self: 3 Lower body dressin Putting on/taking off footwear: 3 OT Mcfp Goals [employer] Transit Operator Goals Time Frame: Jun 25, 2022 Acute change in mental status: 0 Inattention: 0 Disorganized thinkin Altered level of consciousness: 0 Eating (QC): 5 Oral Hygiene (QC): 6 Toileting Hygiene (QC): 6 Shower/Bathe Self (QC): 5 Upper Body Dressing (QC): 5 Lower Body Dressing (QC): 4 On/Off Footwear (QC): 4 Additional Goals: 1-Demonstrate ADL Tasks, 2-Verbalize Understanding, 3-Impr oveStrength/[place] 1=Demonstrate adherence to instructed precautions during ADL tasks. 2=Patient will verbalize/demonstrate understanding of assistive devices/modifications for ADL. 3=Patient will improve strength/tolerance for activity to enable patient to perform ADL's. OT Education/Plan Problem List/Assessment Assessment: Decreased Activ Tolerance, Decreased Safety Aware, Decreased UE Strength, Impaired Cognition, Impaired Funct Balance, Impaired I ADL's, Impaired Self-Care Skills Discharge Recommendations Plan/Recommendations: Continue POC Therapy Discharge Recommendati: 24 Hour Supervision, Post Acute OT (SNF) Comment Due to dementia, and inability to recall and maintain hip precautions, OT recommends 24 hour supervision and assistance vs SNF. Treatment Plan/Plan of Care Patient would benefit from OT for education, treatment and training to promote independence in ADL's, mobility, safety and/or upper extremity function for ADL's. Plan of Care: ADL Retraining, Caregiver Training, Functional Mobility, Group Exercise/Act as Ind, UE Funct Exercise/Act Treatment Duration: Jun 25, 2022 Frequency: At least 5 of 7 days/Wk (IRF) Estimated Hrs Per Day: 1.5 hours per day Agreement: Yes Rehab Potential: Fair Time/GCodes Start Time: 08:00 Stop Time: 09:00 Total Time Billed (hr/min): 60 Billed Treatment Time 1, ADL 3 (45'), FA (15') TORI PINTO OT May 28, 2022 08:44
[2022-05-28] MEDS: polyethylene glycoL POWDER 17 GM (MIRALAX) PACK PO SCH ×2 (09:00→21:04)
[2022-05-28] MEDS: SENNOSIDES 8.6 MG (SENOKOT) TAB PO SCH ×2 (09:00→21:04)
[2022-05-28] MEDS: SENNA W/DOCUSATE (SENOKOT S) TABLET PO SCH ×2 (09:00→21:04)
[2022-05-28] MEDS: LOSARTAN 25 MG (COZAAR) TAB PO SCH (11:01)
[2022-05-28] MEDS: MEMANTINE 10 MG (NAMENDA) TABLET PO SCH ×2 (11:01→21:02)
[2022-05-28] MEDS: LORATADINE (CLARITIN) 10 MG TAB PO SCH (11:01)
[2022-05-28] MEDS: ASPIRIN E.C. 81 MG (ECOTRIN) TAB PO SCH (11:01)
[2022-05-28] MEDS: DOCUSATE SODIUM 100 MG (COLACE) CAP PO SCH ×2 (11:01→21:04)
[2022-05-28] MEDS: ACETAMINOPHEN 325 MG TABLET PO SCH ×3 (11:03→21:02)
--- NOTE | 2022-05-28 11:04 | Physical Therapy Daily Note ---
PT Daily Note-Current Subjective Patient sitting in chair upon PT arrival, nurse had just entered room as patient was attempting to stand up by herself, however when asked did not remember why. Patient and nurse agreeable to treatment. Rates pain currently at 2/10. Pain Section J - Health Conditions 1. Rarely or not at all 2. Occasionally 3. Frequently 4. Almost constantly 8. Unable to answer Pain Effect on Sleep: 0 Pain Interference with Therapy: 2 Pain Interference w/Day-to-Day: 2 Mental Status Patient Orientation: Person Transfers SCALE: Activities may be completed with or without assistive devices. 3-Nmcswrtrjg-yhijjup completes the activity by him/herself with no assistance from a helper. 5-Set-up or Clean-up Assistance-helper sets up or cleans up; patient completes activity. [place] assists only prior to or following the activity. 4-Supervision or Touching Assistance-helper provides verbal cues and/or touching/steadying and/or contact guard assistance as patient completes activity. Assistance may be provided throughout the activity or intermittently. 3-Partial/Moderate Assistance-helper does LESS THAN HALF the effort. [place] lifts, holds or supports trunk or limbs, but provides less than half the effort. 2-Substantial/Maximal Assistance-helper does MORE THAN HALF the effort. [place] lifts or holds trunk or limbs and provides more than half the effort. 9-Oiwapcjxh-jmyfkz does ALL the effort. Patient does none of the effort to complete the activity. Or, the assistance of 2 or more helpers is required for the patient to complete the activity. If activity was not attempted, code reason: 7-Patient Refused. 9-Not Applicable-not attempted and the patient did not perform the activity b efore the current illness, exacerbation or injury. 10-Not Attempted due to Environmental Limitations-(lack of equipment, weather restraints, etc.). 88-Not Attempted due to Medical Conditions or Safety Concerns. Sit to Stand (QC): 5 Chair/Ssk-qh-Aqckx Xfer(QC): 5 Car Transfer (QC): 4 Weight Bearing Right Lower Extremity: Right Weight Bearing/Tolerated Gait Training Does the Patient Walk?: Yes Distance: 200, 200, 50 feet Walk 10 feet (QC): 5 Walk 50 ft with 2 Turns(QC): 5 Walk 150 ft (QC): 4 Gait Persons Needed: 1 Gait Assistive Device: FWW Exercises Supine Ex: Ankle pumps, Quad Set, Glut sets Supine Reps: 20 Seated Therapy Exercises: Long arc quads, Hamstring Curls, Hip abd/add Seated Reps: 20 NuStep Minutes: 10 NuStep Workload: 3 Assessment Current Status: Fair Progress Patient tolerated treatment well. Patient performs LE therapeutic exercises as listed above in her recliner with the legs elevated and then declined. Demonstrates fair overall gait pattern, however posture demonstrates elevated left shoulder, depressed right shoulder and accentuated thoracic kyphosis. Patient ambulates 200 feet, 200 feet, and 50 feet to her room with FWW. Patient performs the Nu Step level 3 with UEs x 10 minutes. Patient in chair post treatment with daughter in the room, all needs met, nurse notified, call light in reach. PT Short Term Goals Short Term Goals Time Frame: May 31, 2022 Roll Left & Right: 4 (SBA) Sit to lyin (Macy) Lying to sitting on side of be: 3 (Macy) Sit to stand: 4 (CGA) Chair/hmn-ey-lcqkf transfer: 4 (SBA) Walk 10 feet: 4 (SBA) Walk 50 feet with two turns: 4 (SBA) Walk 150 feet: 4 (SBA) PT Clinical Nurse Goals Clinical Nurse Goals PT Residential Goals Time Frame: Jun 14, 2022 Roll Left & Right (QC): 6 Sit to Lying (QC): 4 (SBA) Lying-Sitting on Side/Bed(QC): 4 (SBA) Sit to Stand (QC): 4 (SBA) Chair/Guw-fu-Nfdib Xfer(QC): 5 Toilet Transfer (QC): 4 Car Transfer (QC): 4 (SBA) Does the Patient Walk: Yes Walk 10 feet (QC): 5 Walk 50ft with 2 Turns (QC): 5 Walk 150 ft (QC): 5 Walking 10ft on Uneven Surface: 5 1 Step (curb) (QC): 4 (CGA) 4 Steps (QC): 4 (CGA) 12 Steps (QC): 88 Picking up an Object (QC): 4 (SBA using dredge pipe operator) Wheel 50 feet with 2 turns (QC: 9 Wheel 150 feet: 9 PT Plan Treatment/Plan Treatment Plan: Continue Plan of Care Treatment Plan: Bed Mobility, Education, Functional Activity Armand, Functional Strength, Group Therapy, Gait, Safety, Therapeutic Exercise, Transfers Treatment Duration: Jun 14, 2022 Frequency: At least 5 of 7 days/Wk (IRF) Estimated Hrs Per Day: 1.5 hours per day Patient and/or Family Agrees t: Yes Safety Risks/Education Patient Education: Gait Training, Transfer Techniques Teaching Recipient: Patient Teaching Methods: Demonstration, Discussion Response to Teaching: Reinforcement Needed Time/GCodes Time In: 1000 Time Out: 1100 Total Billed Treatment Time: 60 Total Billed Treatment Visit, Gait (30) Ex (30 CURTIS MATTHEW PT May 28, 2022 11:04
[2022-05-28] MEDS: HYPOCHLOROUS ACID/NaCl (VASHE) 250 ML IR SCH (11:05)
--- NOTE | 2022-05-28 11:38 | Occupational Ther Daily Note ---
OT Current Status-Daily Note Subjective Pt in recliner, agreeable to OT tx. Mental Status/Objective Acute change in mental status: 0 Inattention: 0 Disorganized thinkin Altered level of consciousness: 0 ADL-Treatment Therapy Code Descriptions/Definitions Functional [place] Measure: 0=Not Assessed/NA 4=Minimal Assistance 1=Total Assistance 5=Supervision or Setup 2=Maximal Assistance 6=Modified [place] 3=Moderate Assistance 7=Complete IndependenceSCALE: Activities may be completed with or without assistive devices. 4-Wqhirjauvm-rfwzzcq completes the activity by him/herself with no assistance from a helper. 5-Set-up or Clean-up Assistance-helper sets up or cleans up; patient completes activity. [place] assists only prior to or following the activity. 4-Supervision or Touching Assistance-helper provides verbal cues and/or touching/steadying and/or contact guard assistance as patient completes activity. Assistance may be provided throughout the activity or intermittently. 3-Partial/Moderate Assistance-helper does LESS THAN HALF the effort. [place] lifts, holds or supports trunk or limbs, but provides less than half the effort. 2-Substantial/Maximal Assistance-helper does MORE THAN HALF the effort. [place] lifts or holds trunk or limbs and provides more than half the effort. 2-Hrpnsviyw-vhcieo does ALL the effort. Patient does none of the effort to complete the activity. Or, the assistance of 2 or more helpers is required for the patient to complete the activity. If activity was not attempted, code reason: 7-Patient Refused. 9-Not Applicable-not attempted and the patient did not perform the activity before the current illness, exacerbation or injury. 10-Not Attempted due to Environmental Limitations-(lack of equipment, weather restraints, etc.). 88-Not Attempted due to Medical Conditions or Safety Concerns. Other Treatment Pt in recliner, agreeable to OT Tx. Pt used FWW to perform functional mobility around ARU common area to therapy gym, SBA, VCS to locate gym. In order to incr ease BUE strength and activity tolerance, pt completed arm bike x12 mins, 15-20 Watt resistance with rest breaks as needed. Pt returned to her room using FWW, SBA, VCs for direction. Post tx, pt in recliner, call light in reach and all needs met, chair alarm activated. Education OT Patient Education: Correct positioning, Energy conservation, Modified ADL techniques, Progress toward Goal/Update tx plan, Purpose of tx/functional activities, Rehab process Teaching Recipient: Patient Teaching Methods: Discussion Response to Teaching: Verbalize Understanding OT Short Term Goals Short Term Goals Time Frame: Jun 09, 2022 Shower/bathe self: 3 Lower body dressin Putting on/taking off footwear: 3 OT Assisted Goals Assisted Goals Time Frame: Jun 25, 2022 Acute change in mental status: 0 Inattention: 0 Disorganized thinkin Altered level of consciousness: 0 Eating (QC): 5 Oral Hygiene (QC): 6 Toileting Hygiene (QC): 6 Shower/Bathe Self (QC): 5 Upper Body Dressing (QC): 5 Lower Body Dressing (QC): 4 On/Off Footwear (QC): 4 Additional Goals: 1-Demonstrate ADL Tasks, 2-Verbalize Understanding, 3- ImproveStrength/Armand 1=Demonstrate adherence to instructed precautions during ADL tasks. 2=Patient will verbalize/demonstrate understanding of assistive devices/mo difications for ADL. 3=Patient will improve strength/tolerance for activity to enable patient to perform ADL's. OT Education/Plan Problem List/Assessment Assessment: Decreased Activ Tolerance, Decreased Safety Aware, Decreased UE Strength, Impaired Cognition, Impaired Funct Balance, Impaired I ADL's, Impaired Self-Care Skills Discharge Recommendations Plan/Recommendations: Continue POC Treatment Plan/Plan of Care Patient would benefit from OT for education, treatment and training to promote independence in ADL's, mobility, safety and/or upper extremity function for ADL's. Plan of Care: ADL Retraining, Caregiver Training, Functional Mobility, Group Exercise/Act as Ind, UE Funct Exercise/Act Treatment Duration: Jun 25, 2022 Frequency: At least 5 of 7 days/Wk (IRF) Estimated Hrs Per Day: 1.5 hours per day Agreement: Yes Rehab Potential: Fair Time/GCodes Start Time: 11:25 Stop Time: 11:55 Total Time Billed (hr/min): 30 Billed Treatment Time 1, EX (15'), FA (15') TORI PINTO OT May 28, 2022 11:38
--- NOTE | 2022-05-28 14:51 | Physical Therapy Daily Note ---
PT Daily Note-Current Subjective Patient agrees to PT. Pain Section J - Health Conditions 1. Rarely or not at all 2. Occasionally 3. Frequently 4. Almost constantly 8. Unable to answer Pain Effect on Sleep: 0 Pain Interference with Therapy: 2 Pain Interference w/Day-to-Day: 2 Mental Status Patient Orientation: Person Transfers SCALE: Activities may be completed with or without assistive devices. 6-Klnzdxhlww-jkmlzpz completes the activity by him/herself with no assistance from a helper. 5-Set-up or Clean-up Assistance-helper sets up or cleans up; patient completes activity. [place] assists only prior to or following the activity. 4-Supervision or Touching Assistance-helper provides verbal cues and/or touching/steadying and/or contact guard assistance as patient completes activity. Assistance may be provided throughout the activity or intermittently. 3-Partial/Moderate Assistance-helper does LESS THAN HALF the effort. [place] lifts, holds or supports trunk or limbs, but provides less than half the effort. 2-Substantial/Maximal Assistance-helper does MORE THAN HALF the effort. [place] lifts or holds trunk or limbs and provides more than half the effort. 4-Epsbnvxgc-qvqtwd does ALL the effort. Patient does none of the effort to complete the activity. Or, the assistance of 2 or more helpers is required for the patient to complete the activity. If activity was not attempted, code reason: 7-Patient Refused. 9-Not Applicable-not attempted and the patient did not perform the activity before the current illness, exacerbation or injury. 10-Not Attempted due to Environmental Limitations-(lack of equipment, weather restraints, etc.). 88-Not Attempted due to Medical Conditions or Safety Concerns. Sit to Lying (QC): 3 Lying to Sitting/Side of Bed(Q: 4 Sit to Stand (QC): 4 Chair/Zom-qk-Mtext Xfer(QC): 4 Toilet Transfer (QC): 4 Weight Bearing Right Lower Extremity: Right Weight Bearing/Tolerated Gait Training Distance: 150' x 3 Walk 10 feet (QC): 4 Walk 50 ft with 2 Turns(QC): 4 Walk 150 ft (QC): 4 Gait Assistive Device: FWW VC's for body placement in FWW Exercises Seated Therapy Exercises: Ankle pumps, Long arc quads Seated Reps: 12 NuStep Minutes: 10 NuStep Workload: 5 (to increase strength and mobility) Assessment Patient tolerated treatment well and returned to bed with bed alarm activated. Reviewed hip precautions with patient with patient unable to recall. PT Short Term Goals Short Term Goals Time Frame: May 31, 2022 Roll Left & Right: 4 (SBA) Sit to lyin (Macy) Lying to sitting on side of be: 3 (Macy) Sit to stand: 4 (CGA) Chair/yqw-st-lreao transfer: 4 (SBA) Walk 10 feet: 4 (SBA) Walk 50 feet with two turns: 4 (SBA) Walk 150 feet: 4 (SBA) PT Longterm Goals Technical Support Internship Goals PT Technical Support Internship Goals Time Frame: Jun 14, 2022 Roll Left & Right (QC): 6 Sit to Lying (QC): 4 (SBA) Lying-Sitting on Side/Bed(QC): 4 (SBA) Sit to Stand (QC): 4 (SBA) Chair/Zmm-dw-Bhwbt Xfer(QC): 5 Toilet Transfer (QC): 4 Car Transfer (QC): 4 (SBA) Does the Patient Walk: Yes Walk 10 feet (QC): 5 Walk 50ft with 2 Turns (QC): 5 Walk 150 ft (QC): 5 Walking 10ft on Uneven Surface: 5 1 Step (curb) (QC): 4 (CGA) 4 Steps (QC): 4 (CGA) 12 Steps (QC): 88 Picking up an Object (QC): 4 (SBA using alterations expert) Wheel 50 feet with 2 turns (QC: 9 Wheel 150 feet: 9 PT Plan Treatment/Plan Treatment Plan: Continue Plan of Care Treatment Plan: Bed Mobility, Education, Functional Activity Armand, Functional Strength, Group Therapy, Gait, Safety, Therapeutic Exercise, Transfers Treatment Duration: Jun 14, 2022 Frequency: At least 5 of 7 days/Wk (IRF) Estimated Hrs Per Day: 1.5 hours per day Patient and/or Family Agrees t: Yes Time/GCodes Time In: 1420 Time Out: 1450 Total Billed Treatment Time: 30 Total Billed Treatment 1 visit EX 10 min GT 20 min FLORENTINO SNIDER PT May 28, 2022 14:51
[2022-05-28] MEDS: ENOXAPARIN 40 MG/0.4 ML (LOVENOX) SYR SC SCH (16:00)
[2022-05-28] MEDS: DONEPEZIL 10 MG (ARICEPT) TAB PO SCH (21:02)
[2022-05-28 21:38] VITALS: BP 118/69
--- NOTE | 2022-05-29 08:02 | PM&R Progress Note ---
Subjective HPI/CC On Admission Date Seen by Provider: May 29, 2022 Time Seen by Provider: 11:30 Subjective/Events-last exam 05/29/2022: No major concerns Confusion from dementia No falls 05/28/2022: No major issues BM+ Incontinence No pain 05/27/2022: No major issues Participation is good Incontinence noted no changes No falls 05/26/2022: Bowels moved 3 days ago She lost a tooth so her daughter is working on that with dentist No other concerns Dementia procludes anything but a poor prognosis 05/25/2022: Pt is inctotinent of loose stools Overall feels like she is doing a little better Decreased pain Checked meds and labs 05/24/2022: Bowels are moving yesterday No pain 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 anything but a poor prognosis intermediate Participating Review of Systems General: Fatigue, Malaise Objective Exam Vital Signs Vital Signs Date Time Temp Pulse Resp B/P (MAP) Pulse Ox O2 Delivery O2 Flow Rate FiO2 05/29/22 20:10 Room Air 05/29/22 19:27 36.3 88 16 119/59 (79) 93 Capillary Refill : General Appearance: No Apparent Distress, WD/WN, Chronically ill HEENT: PERRL/EOMI, Normal ENT Inspection, Pharynx Normal Neck: Full Range of Motion, Normal Inspection, Non Tender, Supple, Carotid Bruit Respiratory: Chest Non Tender, Lungs Clear, Normal Breath Sounds, No Accessory Muscle Use, No Respiratory Distress Cardiovascular: Regular Rate, Rhythm, No Edema, No Gallop, No JVD, No Murmur, Normal Peripheral Pulses Gastrointestinal: Normal Bowel Sounds, No Organomegaly, No Pulsatile Mass, Non Tender, Soft Back: Normal Inspection, No CVA Tenderness, No Vertebral Tenderness Extremity: Normal Capillary Refill, Normal Inspection, Normal Range of Motion, Non Tender, No Calf Tenderness, No Pedal Edema Neurologic/Psychiatric: Alert, No Motor/Sensory Deficits, breakfast attendant II-XII Norm as Tested, Depressed Affect, Disoriented, Motor Weakness (right leg) Skin: Normal Color, Warm/Dry Lymphatic: No Adenopathy Results/Procedures Lab Patient resulted labs reviewed. [facility] Transfers Therapy Code Descriptions/Definitions Functional [place] Measure: 0=Not Assessed/NA 4=Minimal Assistance 1=Total Assistance 5=Supervision or Setup 2=Maximal Assistance 6=Modified [place] 3=Moderate Assistance 7=Complete IndependenceSCALE: Activities may be completed with or without assistive devices. 5-Ibguterhuc-rywidug completes the activity by him/herself with no assistance from a helper. 5-Set-up or Clean-up Assistance-helper sets up or cleans up; patient completes activity. [place] assists only prior to or following the activity. 4-Supervision or Touching Assistance-helper provides verbal cues and/or touc sallie/steadying and/or contact guard assistance as patient completes activity. Assistance may be provided throughout the activity or intermittently. 3-Partial/Moderate Assistance-helper does LESS THAN HALF the effort. [place] lifts, holds or supports trunk or limbs, but provides less than half the effort. 2-Substantial/Maximal Assistance-helper does MORE THAN HALF the effort. [place] lifts or holds trunk or limbs and provides more than half the effort. 4-Nfaufkucs-tpcqic does ALL the effort. Patient does none of the effort to complete the activity. Or, the assistance of 2 or more helpers is required for the patient to complete the activity. If activity was not attempted, code reason: 7-Patient Refused. 9-Not Applicable-not attempted and the patient did not perform the activity before the current illness, exacerbation or injury. 10-Not Attempted due to Environmental Limitations-(lack of equipment, weather restraints, etc.). 88-Not Attempted due to Medical Conditions or Safety Concerns. Roll Left to Right (QC): 6 Sit to Lying (QC): 3 Sit to Stand (QC): 4 Chair/Jgg-vd-Sttdv Xfer(QC): 4 Car Transfer (QC): 4 Gait Training Does the Patient Walk?: Yes Distance: 150' x 3 Walk 10 feet (QC): 4 Walk 50 ft with 2 Turns(QC): 4 Walk 150 ft (QC): 4 Walking 10ft/uneven surface-QC: 4 Gait Persons Needed: 1 Gait Assistive Device: FWW Wheelchair Training Does the Pt Use a Wheelchair?: No Wheel 50 ft with 2 turns (QC): 9 Wheel 150 ft (QC): 9 Type of Wheelchair: N/A Stair Training #of Steps: 1 1 Step (curb) (QC): 4 4 Steps (QC): 88 12 Steps (QC): 88 Balance Picking up an Object (QC): 4 (CGA using a police commissioner) ADL-Treatment Eating (QC): 6 Oral Hygiene (QC): 4 (SBA seated at sink.) Shower/Bathe Self (QC): 3 (assist with drying BLE lower legs/feet, and washing/drying buttocks.) Upper Body Dressing (QC): 5 Lower Body Dressing (QC): 2 (Max A. Pt unable to recall how to use AE for LE dressing.) On/Off Footwear (QC): 2 (Max A with slip on shoes.) Toileting Hygiene (QC): 3 (Min A, pt able to perform pant hike with VCs and min A with hygiene for thoroughness.) Toilet Transfer (QC): 4 (SBA to C over toilet.) Assessment/Plan Assessment and Plan Assess & Plan/Chief Complaint Assessment: Right hip fracture s/p repair HTN Dementia Falls Post op anemia from acute blood loss Incontinence Plan: Pain control Monitor hgb Fall risk PT OT 05/24/2022: Monitor BP 05/25/2022: Supportive care 05/26/2022: Monitor pain 05/27/2022: Supportive care Incontinence care 05/28/2022: Monitor closely 05/29/2022: Monitor closely (1) Fracture of femoral neck, right, closed Status: Acute (2) Hypertension Status: Chronic (3) Dementia Status: Chronic (4) Fall on same level Status: Acute CULLEN GARCIA DO May 29, 2022 08:02
[2022-05-29 08:06] VITALS: BP 134/62
[2022-05-29] MEDS: polyethylene glycoL POWDER 17 GM (MIRALAX) PACK PO SCH ×2 (08:09→20:30)
[2022-05-29] MEDS: LORATADINE (CLARITIN) 10 MG TAB PO SCH (08:09)
[2022-05-29] MEDS: SENNA W/DOCUSATE (SENOKOT S) TABLET PO SCH ×2 (08:09→20:30)
[2022-05-29] MEDS: LOSARTAN 25 MG (COZAAR) TAB PO SCH (08:09)
[2022-05-29] MEDS: HYPOCHLOROUS ACID/NaCl (VASHE) 250 ML IR SCH (08:09)
[2022-05-29] MEDS: MEMANTINE 10 MG (NAMENDA) TABLET PO SCH ×2 (08:09→21:15)
[2022-05-29] MEDS: ACETAMINOPHEN 325 MG TABLET PO SCH ×3 (08:09→21:15)
[2022-05-29] MEDS: ASPIRIN E.C. 81 MG (ECOTRIN) TAB PO SCH (08:09)
[2022-05-29] MEDS: SENNOSIDES 8.6 MG (SENOKOT) TAB PO SCH ×2 (08:10→20:30)
[2022-05-29] MEDS: DOCUSATE SODIUM 100 MG (COLACE) CAP PO SCH ×2 (09:29→20:30)
--- NOTE | 2022-05-29 10:58 | Physical Therapy Daily Note ---
PT Daily Note-Current Subjective Patient is in bed. Agrees to PT. Pain Section J - Health Conditions 1. Rarely or not at all 2. Occasionally 3. Frequently 4. Almost constantly 8. Unable to answer Pain Effect on Sleep: 0 Pain Interference with Therapy: 2 Pain Interference w/Day-to-Day: 2 Mental Status Patient Orientation: Person Transfers SCALE: Activities may be completed with or without assistive devices. 6-Mqikkmhahj-vsrbbxg completes the activity by him/herself with no assistance from a helper. 5-Set-up or Clean-up Assistance-helper sets up or cleans up; patient completes activity. [place] assists only prior to or following the activity. 4-Supervision or Touching Assistance-helper provides verbal cues and/or touching/steadying and/or contact guard assistance as patient completes activity. Assistance may be provided throughout the activity or intermittently. 3-Partial/Moderate Assistance-helper does LESS THAN HALF the effort. [place] l ifts, holds or supports trunk or limbs, but provides less than half the effort. 2-Substantial/Maximal Assistance-helper does MORE THAN HALF the effort. [place] lifts or holds trunk or limbs and provides more than half the effort. 9-Obkqeqggw-xommvy does ALL the effort. Patient does none of the effort to complete the activity. Or, the assistance of 2 or more helpers is required for t he patient to complete the activity. If activity was not attempted, code reason: 7-Patient Refused. 9-Not Applicable-not attempted and the patient did not perform the activity before the current illness, exacerbation or injury. 10-Not Attempted due to Environmental Limitations-(lack of equipment, weather restraints, etc.). 88-Not Attempted due to Medical Conditions or Safety Concerns. Sit to Lying (QC): 4 Lying to Sitting/Side of Bed(Q: 4 Sit to Stand (QC): 4 Toilet Transfer (QC): 4 SBA Weight Bearing Right Lower Extremity: Right Weight Bearing/Tolerated Gait Training Distance: 300' Walk 10 feet (QC): 4 Walk 50 ft with 2 Turns(QC): 4 Walk 150 ft (QC): 4 Gait Assistive Device: FWW slow, steady gait sequence/SBA Treatments patient toilets independently and washes hands with set up Assessment Patient requires time to complete all functional tasks. Patient returned to bed with 4 rails up and alarm activated for patient's safety PT Short Term Goals Short Term Goals Time Frame: May 31, 2022 Roll Left & Right: 4 (SBA) Sit to lyin (Macy) Lying to sitting on side of be: 3 (Macy) Sit to stand: 4 (CGA) Chair/cri-hu-cuwop transfer: 4 (SBA) Walk 10 feet: 4 (SBA) Walk 50 feet with two turns: 4 (SBA) Walk 150 feet: 4 (SBA) PT [facility] Goals Inventory Manager Goals PT [facility] Goals Time Frame: Jun 14, 2022 Roll Left & Right (QC): 6 Sit to Lying (QC): 4 (SBA) Lying-Sitting on Side/Bed(QC): 4 (SBA) Sit to Stand (QC): 4 (SBA) Chair/Ytd-kl-Dfnjc Xfer(QC): 5 Toilet Transfer (QC): 4 Car Transfer (QC): 4 (SBA) Does the Patient Walk: Yes Walk 10 feet (QC): 5 Walk 50ft with 2 Turns (QC): 5 Walk 150 ft (QC): 5 Walking 10ft on Uneven Surface: 5 1 Step (curb) (QC): 4 (CGA) 4 Steps (QC): 4 (CGA) 12 Steps (QC): 88 Picking up an Object (QC): 4 (SBA using sales exec) Wheel 50 feet with 2 turns (QC: 9 Wheel 150 feet: 9 PT Plan Treatment/Plan Treatment Plan: Continue Plan of Care Treatment Plan: Bed Mobility, Education, Functional Activity Armand, Functional Strength, Group Therapy, Gait, Safety, Therapeutic Exercise, Transfers Treatment Duration: Jun 14, 2022 Frequency: At least 5 of 7 days/Wk (IRF) Estimated Hrs Per Day: 1.5 hours per day Patient and/or Family Agrees t: Yes Time/GCodes Time In: 945 Time Out: 1008 Total Billed Treatment Time: 23 Total Billed Treatment 1 visit FA x 2 23 min FLORENTINO SNIDER PT May 29, 2022 10:58
[2022-05-29] MEDS: ENOXAPARIN 40 MG/0.4 ML (LOVENOX) SYR SC SCH (15:42)
[2022-05-29 19:27] VITALS: BP 119/59
[2022-05-29] MEDS: DONEPEZIL 10 MG (ARICEPT) TAB PO SCH (21:15)
--- NOTE | 2022-05-30 07:04 | PM&R Progress Note ---
Subjective HPI/CC On Admission Date Seen by Provider: May 30, 2022 Time Seen by Provider: 12:00 Subjective/Events-last exam 05/30/2022: No major issues Reads 8 books per 8 weeks per daughter at bedside No issues Labs due tomorrow 05/29/2022: No major concerns Confusion from dementia No falls 05/28/2022: No major issues BM+ Incontinence No pain 05/27/2022: No major issues Participation is good Incontinence noted no changes No falls 05/26/2022: Bowels moved 3 days ago She lost a tooth so her daughter is working on that with dentist No other concerns Dementia procludes anything but a poor prognosis 05/25/2022: Pt is inctotinent of loose stools Overall feels like she is doing a little better Decreased pain Checked meds and labs 05/24/2022: Bowels are moving yesterday No pain 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 anything but a poor prognosis detention Participating Review of Systems General: Fatigue Objective Exam Vital Signs Vital Signs Date Time Temp Pulse Resp B/P (MAP) Pulse Ox O2 Delivery O2 Flow Rate FiO2 05/30/22 12:58 36.8 05/30/22 09:02 95 Room Air 05/30/22 07:30 79 18 120/58 (78) Capillary Refill : General Appearance: No Apparent Distress, WD/WN, Chronically ill HEENT: PERRL/EOMI, Normal ENT Inspection, Pharynx Normal Neck: Full Range of Motion, Normal Inspection, Non Tender, Supple, Carotid Bruit Respiratory: Chest Non Tender, Lungs Clear, Normal Breath Sounds, No Accessory Muscle Use, No Respiratory Distress Cardiovascular: Regular Rate, Rhythm, No Edema, No Gallop, No JVD, No Murmur, Normal Peripheral Pulses Gastrointestinal: Normal Bowel Sounds, No Organomegaly, No Pulsatile Mass, Non Tender, Soft Back: Normal Inspection, No CVA Tenderness, No Vertebral Tenderness Extremity: Normal Capillary Refill, Normal Inspection, Normal Range of Motion, Non Tender, No Calf Tenderness, No Pedal Edema Neurologic/Psychiatric: Alert, No Motor/Sensory Deficits, health safety engineer II-XII Norm as Tested, Depressed Affect, Disoriented, Motor Weakness (right leg) Skin: Normal Color, Warm/Dry Lymphatic: No Adenopathy Results/Procedures Lab Patient resulted labs reviewed. FIM Transfers Therapy Code Descriptions/Definitions Functional [place] Measure: 0=Not Assessed/NA 4=Minimal Assistance 1=Total Assistance 5=Supervision or Setup 2=Maximal Assistance 6=Modified [place] 3=Moderate Assistance 7=Complete IndependenceSCALE: Activities may be completed with or without assistive devices. 8-Xbyjutzxla-sfbnwoe completes the activity by him/herself with no assistance from a helper. 5-Set-up or Clean-up Assistance-helper sets up or cleans up; patient completes activity. [place] assists only prior to or following the activity. 4-Supervision or Touching Assistance-helper provides verbal cues and/or touching/steadying and/or contact guard assistance as patient completes activity. Assistance may be provided throughout the activity or intermittently. 3-Partial/Moderate Assistance-helper does LESS THAN HALF the effort. [place] lifts, holds or supports trunk or limbs, but provides less than half the effort. 2-Substantial/Maximal Assistance-helper does MORE THAN HALF the effort. [place] lifts or holds trunk or limbs and provides more than half the effort. 1-Wcmtgamfy-vlewrt does ALL the effort. Patient does none of the effort to complete the activity. Or, the assistance of 2 or more helpers is required for the patient to complete the activity. If activity was not attempted, code reason: 7-Patient Refused. 9-Not Applicable-not attempted and the patient did not perform the activity before the current illness, exacerbation or injury. 10-Not Attempted due to Environmental Limitations-(lack of equipment, weather restraints, etc.). 88-Not Attempted due to Medical Conditions or Safety Concerns. Roll Left to Right (QC): 6 Sit to Lying (QC): 4 Sit to Stand (QC): 4 Chair/Agm-zb-Xjvbr Xfer(QC): 4 Car Transfer (QC): 4 Gait Training Does the Patient Walk?: Yes Distance: 300' Walk 10 feet (QC): 4 Walk 50 ft with 2 Turns(QC): 4 Walk 150 ft (QC): 4 Walking 10ft/uneven surface-QC: 4 Gait Persons Needed: 1 Gait Assistive Device: FWW Wheelchair Training Does the Pt Use a Wheelchair?: No Wheel 50 ft with 2 turns (QC): 9 Wheel 150 ft (QC): 9 Type of Wheelchair: N/A Stair Training #of Steps: 1 1 Step (curb) (QC): 4 4 Steps (QC): 88 12 Steps (QC): 88 Balance Picking up an Object (QC): 4 (CGA using a matrix worker) ADL-Treatment Eating (QC): 6 Oral Hygiene (QC): 4 (SBA seated at sink.) Shower/Bathe Self (QC): 3 (assist with drying BLE lower legs/feet, and washing/drying buttocks.) Upper Body Dressing (QC): 5 Lower Body Dressing (QC): 2 (Max A. Pt unable to recall how to use AE for LE dressing.) On/Off Footwear (QC): 2 (Max A with slip on shoes.) Toileting Hygiene (QC): 3 (Min A, pt able to perform pant hike with VCs and min A with hygiene for thoroughness.) Toilet Transfer (QC): 4 (SBA to BSC over toilet.) Assessment/Plan Assessment and Plan Assess & Plan/Chief Complaint Assessment: Right hip fracture s/p repair HTN Dementia Falls Post op anemia from acute blood loss Incontinence Plan: Pain control Monitor hgb Fall risk PT OT 05/24/2022: Monitor BP 05/25/2022: Supportive care 05/26/2022: Monitor pain 05/27/2022: Supportive care Incontinence care 05/28/2022: Monitor closely 05/29/2022: Monitor closely 05/30/2022: Monitor closely Check labs in am (1) Fracture of femoral neck, right, closed Status: Acute (2) Hypertension Status: Chronic (3) Dementia Status: Chronic (4) Fall on same level Status: Acute CULLEN GARCIA DO May 30, 2022 07:04
[2022-05-30 07:30] VITALS: BP 120/58
[2022-05-30] MEDS: HYPOCHLOROUS ACID/NaCl (VASHE) 250 ML IR SCH (09:10)
[2022-05-30] MEDS: DOCUSATE SODIUM 100 MG (COLACE) CAP PO SCH ×2 (09:11→19:13)
[2022-05-30] MEDS: MEMANTINE 10 MG (NAMENDA) TABLET PO SCH ×2 (09:11→20:31)
[2022-05-30] MEDS: LORATADINE (CLARITIN) 10 MG TAB PO SCH (09:11)
[2022-05-30] MEDS: SENNOSIDES 8.6 MG (SENOKOT) TAB PO SCH ×2 (09:11→19:13)
[2022-05-30] MEDS: LOSARTAN 25 MG (COZAAR) TAB PO SCH (09:11)
[2022-05-30] MEDS: ASPIRIN E.C. 81 MG (ECOTRIN) TAB PO SCH (09:11)
[2022-05-30] MEDS: SENNA W/DOCUSATE (SENOKOT S) TABLET PO SCH ×2 (09:11→19:12)
[2022-05-30] MEDS: ACETAMINOPHEN 325 MG TABLET PO SCH ×3 (09:11→20:31)
[2022-05-30] MEDS: polyethylene glycoL POWDER 17 GM (MIRALAX) PACK PO SCH ×2 (09:12→19:12)
[2022-05-30] MEDS: ENOXAPARIN 40 MG/0.4 ML (LOVENOX) SYR SC SCH (15:01)
[2022-05-30 20:00] VITALS: BP 139/64
[2022-05-30] MEDS: DONEPEZIL 10 MG (ARICEPT) TAB PO SCH (20:31)
--- NOTE | 2022-05-31 05:18 | PM&R Progress Note ---
Subjective HPI/CC On Admission Date Seen by Provider: May 31, 2022 Time Seen by Provider: 08:30 Subjective/Events-last exam 05/31/2022: Patient doing well No major issues Reading books continuously 05/30/2022: No major issues Reads 8 books per 8 weeks per daughter at bedside No issues Labs due tomorrow 05/29/2022: No major concerns Confusion from dementia No falls 05/28/2022: No major issues BM+ Incontinence No pain 05/27/2022: No major issues Participation is good Incontinence noted no changes No falls 05/26/2022: Bowels moved 3 days ago She lost a tooth so her daughter is working on that with dentist No other concerns Dementia procludes anything but a poor prognosis 05/25/2022: Pt is inctotinent of loose stools Overall feels like she is doing a little better Decreased pain Checked meds and labs 05/24/2022: Bowels are moving yesterday No pain 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 anything but a poor prognosis long term care social worker Participating Review of Systems General: Fatigue, Malaise Objective Exam Vital Signs Vital Signs Date Time Temp Pulse Resp B/P (MAP) Pulse Ox O2 Delivery O2 Flow Rate FiO2 05/31/22 21:00 96 Room Air 05/31/22 19:46 37.3 103 16 136/61 (86) Capillary Refill : General Appearance: No Apparent Distress, WD/WN, Chronically ill HEENT: PERRL/EOMI, Normal ENT Inspection, Pharynx Normal Neck: Full Range of Motion, Normal Inspection, Non Tender, Supple, Carotid Bruit Respiratory: Chest Non Tender, Lungs Clear, Normal Breath Sounds, No Accessory Muscle Use, No Respiratory Distress Cardiovascular: Regular Rate, Rhythm, No Edema, No Gallop, No JVD, No Murmur, Normal Peripheral Pulses Gastrointestinal: Normal Bowel Sounds, No Organomegaly, No Pulsatile Mass, Non Tender, Soft Back: Normal Inspection, No CVA Tenderness, No Vertebral Tenderness Extremity: Normal Capillary Refill, Normal Inspection, Normal Range of Motion, Non Tender, No Calf Tenderness, No Pedal Edema Neurologic/Psychiatric: Alert, No Motor/Sensory Deficits, rn lpn cna II-XII Norm as Tested, Depressed Affect, Disoriented, Motor Weakness (right leg) Skin: Normal Color, Warm/Dry Lymphatic: No Adenopathy Results/Procedures Lab Laboratory Tests 05/31/22 05:26 Patient resulted labs reviewed. FIM Transfers Therapy Code Descriptions/Definitions Functional [place] Measure: 0=Not Assessed/NA 4=Minimal Assistance 1=Total Assistance 5=Supervision or Setup 2=Maximal Assistance 6=Modified [place] 3=Moderate Assistance 7=Complete IndependenceSCALE: Activities may be completed with or without assistive devices. 9-Bazsqtxony-npxtzvh completes the activity by him/herself with no assistance from a helper. 5-Set-up or Clean-up Assistance-helper sets up or cleans up; patient completes activity. [place] assists only prior to or following the activity. 4-Supervision or Touching Assistance-helper provides verbal cues and/or touching/steadying and/or contact guard assistance as patient completes activi ty. Assistance may be provided throughout the activity or intermittently. 3-Partial/Moderate Assistance-helper does LESS THAN HALF the effort. [place] lifts, holds or supports trunk or limbs, but provides less than half the effort. 2-Substantial/Maximal Assistance-helper does MORE THAN HALF the effort. [place] lifts or holds trunk or limbs and provides more than half the effort. 9-Gfgqjhrxt-zctufd does ALL the effort. Patient does none of the effort to complete the activity. Or, the assistance of 2 or more helpers is required for the patient to complete the activity. If activity was not attempted, code reason: 7-Patient Refused. 9-Not Applicable-not attempted and the patient did not perform the activity before the current illness, exacerbation or injury. 10-Not Attempted due to Environmental Limitations-(lack of equipment, weather restraints, etc.). 88-Not Attempted due to Medical Conditions or Safety Concerns. Roll Left to Right (QC): 6 Sit to Lying (QC): 4 Sit to Stand (QC): 4 Chair/Llc-ws-Owbit Xfer(QC): 4 Car Transfer (QC): 4 Gait Training Does the Patient Walk?: Yes Distance: 300' Walk 10 feet (QC): 4 Walk 50 ft with 2 Turns(QC): 4 Walk 150 ft (QC): 4 Walking 10ft/uneven surface-QC: 4 Gait Persons Needed: 1 Gait Assistive Device: FWW Wheelchair Training Does the Pt Use a Wheelchair?: No Wheel 50 ft with 2 turns (QC): 9 Wheel 150 ft (QC): 9 Type of Wheelchair: N/A Stair Training #of Steps: 1 1 Step (curb) (QC): 4 4 Steps (QC): 88 12 Steps (QC): 88 Balance Picking up an Object (QC): 4 (CGA using a program management analyst) ADL-Treatment Eating (QC): 6 Oral Hygiene (QC): 4 (SBA seated at sink.) Shower/Bathe Self (QC): 3 (assist with drying BLE lower legs/feet, and w ashing/drying buttocks.) Upper Body Dressing (QC): 5 Lower Body Dressing (QC): 2 (Max A. Pt unable to recall how to use AE for LE dressing.) On/Off Footwear (QC): 2 (Max A with slip on shoes.) Toileting Hygiene (QC): 3 (Min A, pt able to perform pant hike with VCs and min A with hygiene for thoroughness.) Toilet Transfer (QC): 4 (SBA to BSC over toilet.) Assessment/Plan Assessment and Plan Assess & Plan/Chief Complaint Assessment: Right hip fracture s/p repair HTN Dementia Falls Post op anemia from acute blood loss Incontinence Plan: Pain control Monitor hgb Fall risk PT OT 05/24/2022: Monitor BP 05/25/2022: Supportive care 05/26/2022: Monitor pain 05/27/2022: Supportive care Incontinence care 05/28/2022: Monitor closely 05/29/2022: Monitor closely 05/30/2022: Monitor closely Check labs in am 05/31/2022: Supportive care (1) Fracture of femoral neck, right, closed Status: Acute (2) Hypertension Status: Chronic (3) Dementia Status: Chronic (4) Fall on same level Status: Acute CULLEN GARCIA DO May 31, 2022 05:17
[2022-05-31 05:34] LABS: BASOPHILS # (AUTO) 0.1 10^3/uL (0.0-0.1); BASOPHILS % (AUTO) 1 % (0-10); EOSINOPHILS # (AUTO) 0.1 10^3/uL (0.0-0.3); EOSINOPHILS % (AUTO) 1 % (0-10); HEMATOCRIT 31 % (35-52); LYMPHOCYTES # (AUTO) 1.8 10^3/uL (1.0-4.0); LYMPHOCYTES % (AUTO) 15 % (12-44); MEAN CORPUSCULAR HEMOGLOBIN 33 pg (25-34); MEAN CORPUSCULAR HGB CONC 32 g/dL (32-36); MEAN CORPUSCULAR VOLUME 102 fL (80-99); MEAN PLATELET VOLUME 8.3 fL (9.0-12.2); MONOCYTES # (AUTO) 0.8 10^3/uL (0.0-1.0); MONOCYTES % (AUTO) 7 % (0-12); NEUTROPHILS # (AUTO) 9.1 10^3/uL (1.8-7.8); NEUTROPHILS % (AUTO) 77 % (42-75); PLATELET COUNT 435 10^3/uL (130-400); WHITE BLOOD COUNT 11.9 10^3/uL (4.3-11.0)
[2022-05-31 05:57] LABS: ALBUMIN 2.4 GM/DL (3.2-4.5); BILIRUBIN,TOTAL 1.2 MG/DL (0.1-1.0); CALCIUM 8.3 MG/DL (8.5-10.1); CREATININE SERUM 0.72 MG/DL (0.60-1.30); POTASSIUM 3.9 MMOL/L (3.6-5.0)
[2022-05-31 07:38] VITALS: BP 117/66
[2022-05-31] MEDS: ASPIRIN E.C. 81 MG (ECOTRIN) TAB PO SCH (08:10)
[2022-05-31] MEDS: MEMANTINE 10 MG (NAMENDA) TABLET PO SCH ×2 (08:10→20:45)
[2022-05-31] MEDS: LOSARTAN 25 MG (COZAAR) TAB PO SCH (08:10)
[2022-05-31] MEDS: ACETAMINOPHEN 325 MG TABLET PO SCH ×3 (08:10→20:45)
[2022-05-31] MEDS: LORATADINE (CLARITIN) 10 MG TAB PO SCH (08:10)
--- NOTE | 2022-05-31 08:51 | Occupational Ther Daily Note ---
OT Current Status-Daily Note Subjective Pt agreeable to OT tx. Mental Status/Objective Acute change in mental status: 0 Inattention: 0 Disorganized thinkin Altered level of consciousness: 0 ADL-Treatment Therapy Code Descriptions/Definitions Functional [place] Measure: 0=Not Assessed/NA 4=Minimal Assistance 1=Total Assistance 5=Supervision or Setup 2=Maximal Assistance 6=Modified [place] 3=Moderate Assistance 7=Complete IndependenceSCALE: Activities may be completed with or without assistive devices. 8-Qbdapqtvtk-vyoxcco completes the activity by him/herself with no assistance from a helper. 5-Set-up or Clean-up Assistance-helper sets up or cleans up; patient completes activity. [place] assists only prior to or following the activity. 4-Supervision or Touching Assistance-helper provides verbal cues and/or touching/steadying and/or contact guard assistance as patient completes activity. Assistance may be provided throughout the activity or intermittently. 3-Partial/Moderate Assistance-helper does LESS THAN HALF the effort. [place] lifts, holds or supports trunk or limbs, but provides less than half the effort. 2-Substantial/Maximal Assistance-helper does MORE THAN HALF the effort. [place] lifts or holds trunk or limbs and provides more than half the effort. 9-Euioukgas-cdopbm does ALL the effort. Patient does none of the effort to complete the activity. Or, the assistance of 2 or more helpers is required for the patient to complete the activity. If activity was not attempted, code reason: 7-Patient Refused. 9-Not Applicable-not attempted and the patient did not perform the activity before the current illness, exacerbation or injury. 10-Not Attempted due to Environmental Limitations-(lack of equipment, weather restraints, etc.). 88-Not Attempted due to Medical Conditions or Safety Concerns. Eating (QC): 6 Oral Hygiene (QC): 4 (SBA, min VCs for sequencing) Shower/Bathe Self (QC): 3 (Min A with buttocks and lower legs/feet) Upper Body Dressing (QC): 5 Lower Body Dressing (QC): 2 On/Off Footwear: 2 (pt able to doff slip on shoes, assist with donning.) Toileting Hygiene (QC): 3 (min A for hygiene for thoroughness.) Other Treatment Pt in recliner, agreeable to OT Tx with some encouragement. Pt used FWW to transfer into bathroom and onto SC. Pt completed ADLs as listed above, unable to recall AE for LE dressing. Pt then transferred to recliner. In order to increase fine motor strength and coordination, pt removed beads from moderate resistance theraputty, able to locate all beads without cues. She then pressed putty into a pancake, and placed beads back into putty. Post tx, pt in recliner, call light in reach and all needs met. Education OT Patient Education: Correct positioning, Energy conservation, Modified ADL techniques, Progress toward Goal/Update tx plan, Purpose of tx/functional activities, Rehab process Teaching Recipient: Patient Teaching Methods: Discussion Response to Teaching: Reinforcement Needed OT Short Term Goals Short Term Goals Time Frame: Jun 09, 2022 Shower/bathe self: 3 Lower body dressin Putting on/taking off footwear: 3 OT Mcfp Goals Mcfp Goals Time Frame: Jun 25, 2022 Acute change in mental status: 0 Inattention: 0 Disorganized thinkin Altered level of consciousness: 0 Eating (QC): 5 Oral Hygiene (QC): 6 Toileting Hygiene (QC): 6 Shower/Bathe Self (QC): 5 Upper Body Dressing (QC): 5 Lower Body Dressing (QC): 4 On/Off Footwear (QC): 4 Additional Goals: 1-Demonstrate ADL Tasks, 2-Verbalize Understanding, 3-Improv eStrength/[place] 1=Demonstrate adherence to instructed precautions during ADL tasks. 2=Patient will verbalize/demonstrate understanding of assistive devices/modifications for ADL. 3=Patient will improve strength/tolerance for activity to enable patient to p erform ADL's. OT Education/Plan Problem List/Assessment Assessment: Decreased Activ Tolerance, Decreased Safety Aware, Decreased UE Strength, Impaired Cognition, Impaired Funct Balance, Impaired I ADL's, Impaired Self-Care Skills Discharge Recommendations Plan/Recommendations: Continue POC Treatment Plan/Plan of Care Patient would benefit from OT for education, treatment and training to promote independence in ADL's, mobility, safety and/or upper extremity function for ADL's. Plan of Care: ADL Retraining, Caregiver Training, Functional Mobility, Group Exercise/Act as Ind, UE Funct Exercise/Act Treatment Duration: Jun 25, 2022 Frequency: At least 5 of 7 days/Wk (IRF) Estimated Hrs Per Day: 1.5 hours per day Agreement: Yes Rehab Potential: Fair Time/GCodes Start Time: 08:00 Stop Time: 09:00 Total Time Billed (hr/min): 60 Billed Treatment Time 1, ADL 3 (45'), FA (15') TORI PINTO OT May 31, 2022 08:51
--- NOTE | 2022-05-31 11:55 | Progress Note ---
KHARI BRYANT 05/31/22 1155: Progress Note CC: S/P right femoral neck fracture repair HPI: Patient is a 76 year old female with past medical history of HTN, and dementia presented to ER on 05-18-2022 after a fall she sustained at her house. She was found by EMS to be laying on her floor. Patient was found to have a closed displaced right femoral head fracture. Dr. Elizondo subsequently repaired the hip on 05-19-2022. She was managed post operatively by Dr. Nunez. She was then placed into inpatient rehab on 05-23-2022. As of today patients only complaint was mild right hip pain from surgery, no other pain reported. She is alert and orientated X3. She has been eating appropriately. Her bowels and bladder are also moving appropriately. She still does report some urinary incontinence at this time. She has had bowel incontinence in days prior, but had not had any incidences as of today. No other complaints at this time. Labs were reviewed. Patient is slowly making progress in her PT and OT. She is steadily increasing her fine motor skill. She is able to bathe independently once seated. She is able to reach cabinetry both above and below. Her gait pattern has improved since surgery. She is able to ambulate 200 feet at a time currently. Past Medical History: Hypertension Dementia Social History: Never smoked Denies ETOH use No recreational drug use Review of Systems: Constitutional: no symptoms reported EENTM: no symptoms reported Respiratory: no symptoms reported Cardiovascular: no symptoms reported Gastrointestinal: no symptoms reported Vital Signs: Temp: 37.0 HR: 113 BPM RR: 16 BP: 117/66 Pulse Ox: 97 Physical Exam: General Appearance: No Apparent Distress HEENT: PERRL and EOMI, Hard of hearing Respiratory: LCTAB, Normal Breath Sounds, No Respiratory Distress Cardiovascular: Regular rate and rhythm, No Edema, No Murmur Gastrointestinal: Normal Bowel Sounds, Non Tender, Soft Extremity: Normal Inspection, No Pedal Edema. Left hip still mild tenderness to palpation Neurologic/Psychiatric: Alert, Normal Mood/Affect Assesment and Plan: S/P Right Hip fracture repair Manage and monitor pain Continue PT and OT Continue Incentive spirometry Fall/Fall Risk Continue PT and OT Monitor patient HTN-Primary monitor and continue Losartan Dementia Continue home meds (Donepezil and memantine) Post op anemia from acute blood loss Monitor Anemia- Hemoglobin currently 10.0 Urinary/Bowel Incontinence Continue Incontinence care DVT prophylaxis: Continue Lovenox Hypoalbuminemia Continue Ensure Hallux Valgus Degenerative Disc Disease- Cervical NORMA GARCIA DO 06/01/22 0524: Supervisory-Addendum Brief Verification & Attestation Participated in pt care: history, MDM, physical Personally performed: exam, history, MDM, supervision of care Care discussed with: Medical Student Procedures: n/a Results interpretation: Verified all documentation Verification and Attestation of Medical Student E/M Service A medical student performed and documented this service in my presence. I reviewed and verified all information documented by the medical student and made modifications to such information, when appropriate. I personally performed the physical exam and medical decision making. Norma Garcia, Jun 01, 2022,05:24 KHARI BRYANT May 31, 2022 11:55 NORMA GARCIA DO Jun 01, 2022 05:24
--- NOTE | 2022-05-31 12:08 | Physical Therapy Daily Note ---
PT Daily Note-Current Subjective Pt sitting in recliner upon arrival. Pt agrees to PT but declines need for BR. Pain Location: Right, Incisional Location Body Site: Hip Comment: Reported but not rated Section J - Health Conditions 1. Rarely or not at all 2. Occasionally 3. Frequently 4. Almost constantly 8. Unable to answer Pain Effect on Sleep: 0 Pain Interference with Therapy: 2 Pain Interference w/Day-to-Day: 2 Mental Status Patient Orientation: Person, Confused Transfers SCALE: Activities may be completed with or without assistive devices. 8-Mtvaypsgps-gijfjko completes the activity by him/herself with no assistance fr om a helper. 5-Set-up or Clean-up Assistance-helper sets up or cleans up; patient completes activity. [place] assists only prior to or following the activity. 4-Supervision or Touching Assistance-helper provides verbal cues and/or touching/steadying and/or contact guard assistance as patient completes activity. Assistance may be provided throughout the activity or intermittently. 3-Partial/Moderate Assistance-helper does LESS THAN HALF the effort. [place] lifts, holds or supports trunk or limbs, but provides less than half the effort. 2-Substantial/Maximal Assistance-helper does MORE THAN HALF the effort. [place] lifts or holds trunk or limbs and provides more than half the effort. 2-Nutyjwgcf-zddvew does ALL the effort. Patient does none of the effort to complete the activity. Or, the assistance of 2 or more helpers is required for the patient to complete the activity. If activity was not attempted, code reason: 7-Patient Refused. 9-Not Applicable-not attempted and the patient did not perform the activity before the current illness, exacerbation or injury. 10-Not Attempted due to Environmental Limitations-(lack of equipment, weather restraints, etc.). 88-Not Attempted due to Medical Conditions or Safety Concerns. Sit to Stand (QC): 4 Weight Bearing Right Lower Extremity: Right Weight Bearing/Tolerated Gait Training Does the Patient Walk?: Yes Distance: 150', 175' Walk 10 feet (QC): 4 Walk 50 ft with 2 Turns(QC): 4 Walk 150 ft (QC): 4 Gait Persons Needed: 1 Gait Assistive Device: FWW Exercises Seated Therapy Exercises: Ankle pumps, Sit to stand, Long arc quads, Hip flexion, Hip abd/add, Glut set Seated Reps: 15 NuStep Minutes: 10 NuStep Workload: 3 Treatments TF to standing, declines need for BR and amb. in hallway. Pt uses NuStep with legs left long to not break Hip Precautions. After RB, pt completes Seated EX then another RB. Pt amb. in hallway before returning to room to rest in recliner. Pt declines need for BR. All needs met, call light in hand. Assessment Current Status: Fair Progress Confusion demonstrated during tx & pt continues to ask what is next due to dementia. VC for safety at times. PT Short Term Goals Short Term Goals Time Frame: May 31, 2022 Roll Left & Right: 4 (SBA) Sit to lyin ([place]) Lying to sitting on side of be: 3 ([place]acy) Sit to stand: 4 (CGA) Chair/kdg-zl-npyvh transfer: 4 (SBA) Walk 10 feet: 4 (SBA) Walk 50 feet with two turns: 4 (SBA) Walk 150 feet: 4 (SBA) PT Nursing Home Goals [place]aster Goals PT [place] Goals Time Frame: Jun 14, 2022 Roll Left & Right (QC): 6 Sit to Lying (QC): 4 (SBA) Lying-Sitting on Side/Bed(QC): 4 (SBA) Sit to Stand (QC): 4 (SBA) Chair/Zit-rg-Crzjy Xfer(QC): 5 Toilet Transfer (QC): 4 Car Transfer (QC): 4 (SBA) Does the Patient Walk: Yes Walk 10 feet (QC): 5 Walk 50ft with 2 Turns (QC): 5 Walk 150 ft (QC): 5 Walking 10ft on Uneven Surface: 5 1 Step (curb) (QC): 4 (CGA) 4 Steps (QC): 4 (CGA) 12 Steps (QC): 88 Picking up an Object (QC): 4 (SBA using semiconductor bonder) Wheel 50 feet with 2 turns (QC: 9 Wheel 150 feet: 9 PT Plan Problem List Problem List: Activity Tolerance, Functional Strength, Safety Treatment/Plan Treatment Plan: Continue Plan of Care Treatment Plan: Bed Mobility, Education, Functional Activity Armand, Functional Strength, Group Therapy, Gait, Safety, Therapeutic Exercise, Transfers Treatment Duration: Jun 14, 2022 Frequency: At least 5 of 7 days/Wk (IRF) Estimated Hrs Per Day: 1.5 hours per day Patient and/or Family Agrees t: Yes Safety Risks/Education Patient Education: Gait Training, Transfer Techniques, Reviewed Precautions, Correct Positioning, Safety Issues Teaching Recipient: Patient Teaching Methods: Discussion Response to Teaching: Reinforcement Needed Time/GCodes Time In: 1030 Time Out: 1200 Total Billed Treatment Time: 90 Total Billed Treatment 1, GT x2 (30m), EX x3 (45m) & FA (15m) ZANDER BRUNO CLAIMS ADJUDICATOR May 31, 2022 12:08
[2022-05-31] MEDS: HYPOCHLOROUS ACID/NaCl (VASHE) 250 ML IR SCH (12:19)
[2022-05-31] MEDS: DOCUSATE SODIUM 100 MG (COLACE) CAP PO SCH ×2 (13:41→20:45)
[2022-05-31] MEDS: polyethylene glycoL POWDER 17 GM (MIRALAX) PACK PO SCH ×2 (13:41→20:45)
[2022-05-31] MEDS: SENNOSIDES 8.6 MG (SENOKOT) TAB PO SCH ×2 (13:42→20:45)
[2022-05-31] MEDS: SENNA W/DOCUSATE (SENOKOT S) TABLET PO SCH ×2 (13:42→20:45)
--- NOTE | 2022-05-31 13:46 | Occupational Ther Daily Note ---
OT Current Status-Daily Note Subjective Pt lying in bed alert. Pt agrees to therapy. No c/o pain at this time. Mental Status/Objective Patient Orientation: Person, Confused, Place Acute change in mental status: 0 Inattention: 0 Disorganized thinkin Altered level of consciousness: 0 ADL-Treatment Therapy Code Descriptions/Definitions Functional [place] Measure: 0=Not Assessed/NA 4=Minimal Assistance 1=Total Assistance 5=Supervision or Setup 2=Maximal Assistance 6=Modified [place] 3=Moderate Assistance 7=Complete IndependenceSCALE: Activities may be completed with or without assistive devices. 3-Fmpgkhzkzs-mhqmnnm completes the activity by him/herself with no assistance from a helper. 5-Set-up or Clean-up Assistance-helper sets up or cleans up; patient completes activity. [place] assists only prior to or following the activity. 4-Supervision or Touching Assistance-helper provides verbal cues and/or touching/steadying and/or contact guard assistance as patient completes activity. Assistance may be provided throughout the activity or intermittently. 3-Partial/Moderate Assistance-helper does LESS THAN HALF the effort. [place] lifts, holds or supports trunk or limbs, but provides less than half the effort. 2-Substantial/Maximal Assistance-helper does MORE THAN HALF the effort. [place] lifts or holds trunk or limbs and provides more than half the effort. 4-Rymptryki-wqsfnx does ALL the effort. Patient does none of the effort to complete the activity. Or, the assistance of 2 or more helpers is required for the patient to complete the activity. If activity was not attempted, code reason: 7-Patient Refused. 9-Not Applicable-not attempted and the patient did not perform the activity before the current illness, exacerbation or injury. 10-Not Attempted due to Environmental Limitations-(lack of equipment, weather restraints, etc.). 88-Not Attempted due to Medical Conditions or Safety Concerns. Other Treatment Pt supine to EOB min A. Pt EOB to stand with FWW, CGA. Pt ambulated with FWW to therapy gym, CGA. Pt completed 10 min arm bike with 25 villeda resistance, while decreasing resistance during session due to fatigue. Pt ambulated back to room using FWW, CGA. Pt EOB to supine min A to maintain hip precautions. Pt lying in bed call light/phone in reach. All needs met in room. 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 2=Patient will verbalize/demonstrate understanding of assistive devices/modifications for ADL. 3=Patient will improve strength/tolerance for activity to enable patient to perform ADL's. OT Education/Plan Problem List/Assessment Assessment: Decreased Activ Tolerance, Decreased UE Strength, Impaired Cognition Discharge Recommendations Plan/Recommendations: Continue POC Treatment Plan/Plan of Care Patient would benefit from OT for education, treatment and training to promote independence in ADL's, mobility, safety and/or upper extremity function for ADL's. Plan of Care: ADL Retraining, Caregiver Training, Functional Mobility, Group Exercise/Act as Ind, UE Funct Exercise/Act Treatment Duration: Jun 25, 2022 Frequency: At least 5 of 7 days/Wk (IRF) Estimated Hrs Per Day: 1.5 hours per day Agreement: Yes Rehab Potential: Fair Time/GCodes Start Time: 13:00 Stop Time: 13:30 Total Time Billed (hr/min): 30 Billed Treatment Time 1 visit EX 2 (30 min) KEVEN IBRAHIM May 31, 2022 13:46
[2022-05-31] MEDS: ENOXAPARIN 40 MG/0.4 ML (LOVENOX) SYR SC SCH (15:01)
[2022-05-31 19:46] VITALS: BP 136/61
[2022-05-31] MEDS: DONEPEZIL 10 MG (ARICEPT) TAB PO SCH (20:45)
--- NOTE | 2022-06-01 05:52 | PM&R Progress Note ---
Subjective HPI/CC On Admission Date Seen by Provider: Jun 01, 2022 Time Seen by Provider: 09:00 Subjective/Events-last exam 06/01/2022: Doing well No changes Ready for DC to [facility] tomorrow 05/31/2022: Patient doing well No major issues Reading books continuously 05/30/2022: No major issues Reads 8 books per 8 weeks per daughter at bedside No issues Labs due tomorrow 05/29/2022: No major concerns Confusion from dementia No falls 05/28/2022: No major issues BM+ Incontinence No pain 05/27/2022: No major issues Participation is good Incontinence noted no changes No falls 05/26/2022: Bowels moved 3 days ago She lost a tooth so her daughter is working on that with dentist No other concerns Dementia procludes anything but a poor prognosis 05/25/2022: Pt is inctotinent of loose stools Overall feels like she is doing a little better Decreased pain Checked meds and labs 05/24/2022: Bowels are moving yesterday No pain 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 anything 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 Review of Systems General: Fatigue, Malaise Objective Exam Vital Signs Vital Signs Date Time Temp Pulse Resp B/P (MAP) Pulse Ox O2 Delivery O2 Flow Rate FiO2 06/01/22 21:30 96 Room Air 06/01/22 20:05 36.9 88 18 137/63 (87) Capillary Refill : General Appearance: No Apparent Distress, WD/WN, Chronically ill HEENT: PERRL/EOMI, Normal ENT Inspection, Pharynx Normal Neck: Full Range of Motion, Normal Inspection, Non Tender, Supple, Carotid Bruit Respiratory: Chest Non Tender, Lungs Clear, Normal Breath Sounds, No Accessory Muscle Use, No Respiratory Distress Cardiovascular: Regular Rate, Rhythm, No Edema, No Gallop, No JVD, No Murmur, Normal Peripheral Pulses Gastrointestinal: Normal Bowel Sounds, No Organomegaly, No Pulsatile Mass, Non Tender, Soft Back: Normal Inspection, No CVA Tenderness, No Vertebral Tenderness Extremity: Normal Capillary Refill, Normal Inspection, Normal Range of Motion, Non Tender, No Calf Tenderness, No Pedal Edema Neurologic/Psychiatric: Alert, No Motor/Sensory Deficits, dermatological surgeon II-XII Norm as Tested, Depressed Affect, Disoriented, Motor Weakness (right leg) Skin: Normal Color, Warm/Dry Lymphatic: No Adenopathy Results/Procedures Lab Patient resulted labs reviewed. FIM Transfers Therapy Code Descriptions/Definitions Functional [place] Measure: 0=Not Assessed/NA 4=Minimal Assistance 1=Total Assistance 5=Supervision or Setup 2=Maximal Assistance 6=Modified [place] 3=Moderate Assistance 7=Complete IndependenceSCALE: Activities may be completed with or without assistive devices. 7-Blpymeebko-qcqqqqs completes the activity by him/herself with no assistance from a helper. 5-Set-up or Clean-up Assistance-helper sets up or cleans up; patient completes activity. [place] assists only prior to or following the activity. 4-Supervision or Touching Assistance-helper provides verbal cues and/or touching/steadying and/or contact guard assistance as patient completes activity. Assistance may be provided throughout the activity or intermittently. 3-Partial/Moderate Assistance-helper does LESS THAN HALF the effort. [place] lifts, holds or supports trunk or limbs, but provides less than half the effort. 2-Substantial/Maximal Assistance-helper does MORE THAN HALF the effort. [place] lifts or holds trunk or limbs and provides more than half the effort. 6-Ehesfyube-mfelhk does ALL the effort. Patient does none of the effort to complete the activity. Or, the assistance of 2 or more helpers is required for the patient to complete the activity. If activity was not attempted, code reason: 7-Patient Refused. 9-Not Applicable-not attempted and the patient did not perform the activity before the current illness, exacerbation or injury. 10-Not Attempted due to Environmental Limitations-(lack of equipment, weather restraints, etc.). 88-Not Attempted due to Medical Conditions or Safety Concerns. Roll Left to Right (QC): 6 Sit to Lying (QC): 4 Sit to Stand (QC): 4 Chair/Xrm-mg-Mmhic Xfer(QC): 4 Car Transfer (QC): 4 Gait Training Does the Patient Walk?: Yes Distance: 150', 175' Walk 10 feet (QC): 4 Walk 50 ft with 2 Turns(QC): 4 Walk 150 ft (QC): 4 Walking 10ft/uneven surface-QC: 4 Gait Persons Needed: 1 Gait Assistive Device: FWW Wheelchair Training Does the Pt Use a Wheelchair?: No Wheel 50 ft with 2 turns (QC): 9 Wheel 150 ft (QC): 9 Type of Wheelchair: N/A Stair Training #of Steps: 1 1 Step (curb) (QC): 4 4 Steps (QC): 88 12 Steps (QC): 88 Balance Picking up an Object (QC): 4 (CGA using a animal trainer) ADL-Treatment Eating (QC): 6 Oral Hygiene (QC): 4 (SBA, min VCs for sequencing) Shower/Bathe Self (QC): 3 (Min A with buttocks and lower legs/feet) Upper Body Dressing (QC): 5 Lower Body Dressing (QC): 2 On/Off Footwear (QC): 2 (pt able to doff slip on shoes, assist with donning.) Toileting Hygiene (QC): 3 (min A for hygiene for thoroughness.) Toilet Transfer (QC): 4 (SBA to BSC over toilet.) Assessment/Plan Assessment and Plan Assess & Plan/Chief Complaint Assessment: Right hip fracture s/p repair HTN Dementia Falls Post op anemia from acute blood loss Incontinence Plan: Pain control Monitor hgb Fall risk PT OT 05/24/2022: Monitor BP 05/25/2022: Supportive care 05/26/2022: Monitor pain 05/27/2022: Supportive care Incontinence care 05/28/2022: Monitor closely 05/29/2022: Monitor closely 05/30/2022: Monitor closely Check labs in am 05/31/2022: Supportive care 06/01/2022: Monitor closely (1) Fracture of femoral neck, right, closed Status: Acute (2) Hypertension Status: Chronic (3) Dementia Status: Chronic (4) Fall on same level Status: Acute CULLEN GARCIA DO Jun 01, 2022 05:52
[2022-06-01] MEDS: DOCUSATE SODIUM 100 MG (COLACE) CAP PO SCH ×2 (07:19→21:47)
[2022-06-01] MEDS: polyethylene glycoL POWDER 17 GM (MIRALAX) PACK PO SCH ×2 (07:19→21:49)
[2022-06-01] MEDS: SENNOSIDES 8.6 MG (SENOKOT) TAB PO SCH ×2 (07:20→21:47)
[2022-06-01] MEDS: SENNA W/DOCUSATE (SENOKOT S) TABLET PO SCH ×2 (07:20→21:48)
[2022-06-01 07:37] VITALS: BP 116/58
[2022-06-01] MEDS: ACETAMINOPHEN 325 MG TABLET PO SCH ×3 (08:21→21:48)
[2022-06-01] MEDS: MEMANTINE 10 MG (NAMENDA) TABLET PO SCH ×2 (08:21→21:48)
[2022-06-01] MEDS: ASPIRIN E.C. 81 MG (ECOTRIN) TAB PO SCH (08:21)
[2022-06-01] MEDS: LOSARTAN 25 MG (COZAAR) TAB PO SCH (08:21)
[2022-06-01] MEDS: LORATADINE (CLARITIN) 10 MG TAB PO SCH (08:21)
[2022-06-01] MEDS: HYPOCHLOROUS ACID/NaCl (VASHE) 250 ML IR SCH (08:25)
--- NOTE | 2022-06-01 08:52 | Occupational Ther Daily Note ---
OT Current Status-Daily Note Subjective Pt in recliner, agreeable to OT Tx. Mental Status/Objective Acute change in mental status: 0 Inattention: 0 Disorganized thinkin Altered level of consciousness: 0 ADL-Treatment Therapy Code Descriptions/Definitions Functional [place] Measure: 0=Not Assessed/NA 4=Minimal Assistance 1=Total Assistance 5=Supervision or Setup 2=Maximal Assistance 6=Modified [place] 3=Moderate Assistance 7=Complete IndependenceSCALE: Activities may be completed with or without assistive devices. 2-Tungoeegrm-qcyxskl completes the activity by him/herself with no assistance from a helper. 5-Set-up or Clean-up Assistance-helper sets up or cleans up; patient completes activity. [place] assists only prior to or following the activity. 4-Supervision or Touching Assistance-helper provides verbal cues and/or touching/steadying and/or contact guard assistance as patient completes activity. Assistance may be provided throughout the activity or intermittently. 3-Partial/Moderate Assistance-helper does LESS THAN HALF the effort. [place] lifts, holds or supports trunk or limbs, but provides less than half the effort. 2-Substantial/Maximal Assistance-helper does MORE THAN HALF the effort. [place] lifts or holds trunk or limbs and provides more than half the effort. 4-Yrrtqueja-udvvku does ALL the effort. Patient does none of the effort to complete the activity. Or, the assistance of 2 or more helpers is required for the patient to complete the activity. If activity was not attempted, code reason: 7-Patient Refused. 9-Not Applicable-not attempted and the patient did not perform the activity before the current illness, exacerbation or injury. 10-Not Attempted due to Environmental Limitations-(lack of equipment, weather restraints, etc.). 88-Not Attempted due to Medical Conditions or Safety Concerns. Lower Body Dressing (QC): 2 (Max A with donning pants.) Other Treatment Pt in recliner, donned pants and pt took medications provided by nursing staff. Pt used FWW to transfer to therapy gym, SBA with VCs for direction. In order to increase BUE strength, activity tolerance, problem solving, and coordination, pt completed x100 piece puzzle. OT provided moderate assistance with the edge pieces, moderate assistance with completing edge of puzzle. Pt then completed inside of puzzle, with OT handing pt pieces of 1 section at a time. Noted pt had difficulty with turning pieces to find the correct positioning, opting to place pieces only one or two ways into slots. Pt required moderate verbal cues to turn various pieces to place correctly. When OT handed pt a piece, oriented correctly, pt able to place with ~80% accuracy. Pt then completed arm bike, x10 mins, 20 [place] resistance. Pt returned to her room using FWW, SBA. Post tx, pt in recliner, call light in reach and all needs met, chair alarm activated. Education OT Patient Education: Correct positioning, Energy conservation, Modified ADL techniques, Progress toward Goal/Update tx plan, Purpose of tx/functional activities, Rehab process Teaching Recipient: Patient Teaching Methods: Discussion Response to Teaching: Verbalize Understanding OT Short Term Goals Short Term Goals Time Frame: Jun 09, 2022 Shower/bathe self: 3 Lower body dressin Putting on/taking off footwear: 3 OT Mcfp Goals [employer] [facility] Goals Time Frame: Jun 25, 2022 Acute change in mental status: 0 Inattention: 0 Disorganized thinkin Altered level of consciousness: 0 Eating (QC): 5 Oral Hygiene (QC): 6 Toileting Hygiene (QC): 6 Shower/Bathe Self (QC): 5 Upper Body Dressing (QC): 5 Lower Body Dressing (QC): 4 On/Off Footwear (QC): 4 Additional Goals: 1-Demonstrate ADL Tasks, 2-Verbalize Understanding, 3- ImproveStrength/Armand 1=Demonstrate adherence to instructed precautions during ADL tasks. 2=Patient will verbalize/demonstrate understanding of assistive devices/modifications for ADL. 3=Patient will improve strength/tolerance for activity to enable patient to perform ADL's. OT Education/Plan Problem List/Assessment Assessment: Decreased Activ Tolerance, Decreased Safety Aware, Decreased UE Strength, Impaired Cognition, Impaired Funct Balance, Impaired I ADL's, Impaired Self-Care Skills Discharge Recommendations Plan/Recommendations: Continue POC Treatment Plan/Plan of Care Patient would benefit from OT for education, treatment and training to promote independence in ADL's, mobility, safety and/or upper extremity function for ADL's. Plan of Care: ADL Retraining, Caregiver Training, Functional Mobility, Group Exercise/Act as Ind, UE Funct Exercise/Act Treatment Duration: Jun 25, 2022 Frequency: At least 5 of 7 days/Wk (IRF) Estimated Hrs Per Day: 1.5 hours per day Agreement: Yes Rehab Potential: Fair Time/GCodes Start Time: 08:00 Stop Time: 09:30 Total Time Billed (hr/min): 90 Billed Treatment Time 1, FA 5 (75'), EX (15') TORI PINTO OT Jun 01, 2022 08:52
--- NOTE | 2022-06-01 11:51 | Physical Therapy Daily Note ---
PT Daily Note-Current Subjective Patient in recliner pre tx, agrees to PT, has 4/10 pain in right hip. Pain Section J - Health Conditions 1. Rarely or not at all 2. Occasionally 3. Frequently 4. Almost constantly 8. Unable to answer Pain Effect on Sleep: 0 Pain Interference with Therapy: 2 Pain Interference w/Day-to-Day: 2 Appearance Patient in recliner post tx with nurse call, phone, tray, all needs met, chair alarm on. Mental Status Patient Orientation: Person, Confused Transfers SCALE: Activities may be completed with or without assistive devices. 1-Gavcsvlmfj-armfaba completes the activity by him/herself with no assistance from a helper. 5-Set-up or Clean-up Assistance-helper sets up or cleans up; patient completes activity. [place] assists only prior to or following the activity. 4-Supervision or Touching Assistance-helper provides verbal cues and/or touching/steadying and/or contact guard assistance as patient completes activity. Assistance may be provided throughout the activity or intermittently. 3-Partial/Moderate Assistance-helper does LESS THAN HALF the effort. [place] lifts, holds or supports trunk or limbs, but provides less than half the effort. 2-Substantial/Maximal Assistance-helper does MORE THAN HALF the effort. [place] lifts or holds trunk or limbs and provides more than half the effort. 4-Qdwxtbnht-gdqcoc does ALL the effort. Patient does none of the effort to complete the activity. Or, the assistance of 2 or more helpers is required for the patient to complete the activity. If activity was not attempted, code reason: 7-Patient Refused. 9-Not Applicable-not attempted and the patient did not perform the activity before the current illness, exacerbation or injury. 10-Not Attempted due to Environmental Limitations-(lack of equipment, weather restraints, etc.). 88-Not Attempted due to Medical Conditions or Safety Concerns. Roll Left & Right (QC): 6 Sit to Lying (QC): 3 Lying to Sitting/Side of Bed(Q: 3 Sit to Stand (QC): 4 Chair/Yvr-pw-Bwkyt Xfer(QC): 4 Toilet Transfer (QC): 3 Car Transfer (QC): 3 Patient performs rolling with independence, supine <-> sit min assist, sit <-> stand and transfers SBA, toilet transfer SBA, car transfer min assist. Patient needs a toilet riser, has difficulty with supine <-> from lower surfaces and it is better to comply with her hip precautions. Patient needs frequent cues for positioning and safety. After getting back to her room she needs to use the restroom, when done she can wipe herself but needs assist getting new brief on and getting pants back on. Weight Bearing Right Lower Extremity: Right Weight Bearing/Tolerated Gait Training Distance: 150'x2, 120' Walk 10 feet (QC): 4 Walk 50 ft with 2 Turns(QC): 4 Walk 150 ft (QC): 4 Walking 10ft/uneven surface-QC: 4 Gait Persons Needed: 1 Gait Assistive Device: FWW Patient can ambulate 150' with a rolling walker with SBA (including 50' with at least 2 turns of 90 degrees but needs CGA for 10' over an uneven surface). Ambulation is very slow but no LOB, slumped posture. Wheelchair Training Does the Pt Use a Wheelchair?: No Wheel 50 ft with 2 turns (QC): 9 Wheel 150 ft (QC): 9 Stair Training Stair Training: Handrails/: 2 handrails #of Steps: 4 1 Step (curb) (QC): 4 4 Steps (QC): 4 12 Steps (QC): 88 Stairs: Pattern: Step to Patient can go up and down 4 steps using 2 handrails with CGA, cues for foot placement and safety. Balance Picking up an Object (QC): 4 (SBA using clothes model) Special Test Comments Patient scored a 20/28 on the Tinetti Exercises Supine Ex: Ankle pumps, Quad Set, Glut sets, Heel Slides, Short Arc Quads, Straight leg raise, Hip abd/add Supine Reps: 20 Standing: Hip Abduction, Heel/toe raises, Marching, Mini squats Standing Reps: 15 NuStep Minutes: 15 NuStep Workload: 5 Treatments bed mobility and transfers, ambulation, stair training, functional strengthening Assessment Current Status: Fair Progress fair progress overall but patient is at risk for a fall (moderate risk according to Tinetti), probably even more than a moderate risk due to her confusion PT Short Term Goals Short Term Goals Time Frame: May 31, 2022 Roll Left & Right: 4 (SBA) Sit to lyin ([place]) Lying to sitting on side of be: 3 ([place]) Sit to stand: 4 (CGA) Chair/flk-lj-janjx transfer: 4 (SBA) Walk 10 feet: 4 (SBA) Walk 50 feet with two turns: 4 (SBA) Walk 150 feet: 4 (SBA) PT Half-Way Goals Sizing Machine Operator Goals PT Sizing Machine Operator Goals Time Frame: Jun 14, 2022 Roll Left & Right (QC): 6 Sit to Lying (QC): 4 (SBA) Lying-Sitting on Side/Bed(QC): 4 (SBA) Sit to Stand (QC): 4 (SBA) Chair/Yaa-kh-Azgbh Xfer(QC): 5 Toilet Transfer (QC): 4 Car Transfer (QC): 4 (SBA) Does the Patient Walk: Yes Walk 10 feet (QC): 5 Walk 50ft with 2 Turns (QC): 5 Walk 150 ft (QC): 5 Walking 10ft on Uneven Surface: 5 1 Step (curb) (QC): 4 (CGA) 4 Steps (QC): 4 (CGA) 12 Steps (QC): 88 Picking up an Object (QC): 4 (SBA using clothes model) Wheel 50 feet with 2 turns (QC: 9 Wheel 150 feet: 9 PT Plan Problem List Problem List: Activity Tolerance, Functional Strength, Safety, Balance, Gait, Transfer, Bed Mobility, ROM Treatment/Plan Treatment Plan: Continue Plan of Care Treatment Plan: Bed Mobility, Education, Functional Activity Armand, Functional Strength, Group Therapy, Gait, Safety, Therapeutic Exercise, Transfers Treatment Duration: Jun 14, 2022 Frequency: At least 5 of 7 days/Wk (IRF) Estimated Hrs Per Day: 1.5 hours per day Patient and/or Family Agrees t: Yes Safety Risks/Education Patient Education: Gait Training, Transfer Techniques, Steps, Reviewed Precautions (patient doesn't seem to retain this info), Correct Positioning, Safety Issues Teaching Recipient: Patient Teaching Methods: Demonstration, Discussion Response to Teaching: Reinforcement Needed Time/GCodes Time In: 1030 Time Out: 1200 Total Billed Treatment Time: 90 Total Billed Treatment 1 visit EX 45' FA 45' GEORGETTE TEE PT Jun 01, 2022 11:50
[2022-06-01] MEDS: ENOXAPARIN 40 MG/0.4 ML (LOVENOX) SYR SC SCH (16:33)
[2022-06-01 20:05] VITALS: BP 137/63
[2022-06-01] MEDS: DONEPEZIL 10 MG (ARICEPT) TAB PO SCH (21:48)
[2022-06-02] MEDS ORDERED: MEMA10TA57 PO (05:53)
[2022-06-02] MEDS ORDERED: DONE10TA41 PO (05:53)
[2022-06-02] MEDS ORDERED: SENN1TAB76 PO (05:53)
[2022-06-02] MEDS ORDERED: ASPI-1238 PO (05:53)
[2022-06-02] MEDS ORDERED: ACET325T49 PO (05:53)
[2022-06-02] MEDS ORDERED: LORA10TA7 PO (05:53)
[2022-06-02] MEDS ORDERED: LOSA25TA41 PO (05:53)
--- NOTE | 2022-06-02 05:54 | Discharge Inst-Skilled Nursing ---
Discharge Inst-Skilled NF Reconcile Patient Problems Problems Reviewed?: Yes Patient Instructions Patient Problems: Right hip fracture Dementia Goal: Return home Consult/Follow Up/Orders Follow Up Appt.: Dr Carrillo/Gwendolyn paige [place] rounds Skilled NF Admit to: [facility] [place] Certification (SNF) I certify that SNF services are required to be given on an inpatient basis because of the above named patient's need for senior living care on a continuing basis for the conditions(s) for which he/she was receiving inpatient hospital services prior to his/her transfer to the [facility]. Retirement Facility Order: Nursing Services, Sound Effects Technician-Evaluate & Treat, Physical Therapy-Evaluate & Treat, Speech Language-Evaluate & Treat Oxygen Delivery Method: Room Air Discharge Diet: No Restrictions Resuscitation Status: Full Code New & Resume Previous Orders New Medications: Acetaminophen (Acetaminophen) 325 Mg Tablet 650 MG PO TID, #90 TAB Aspirin (Aspirin EC) 81 Mg Tablet.dr 81 MG PO DAILY, #30 TAB Loratadine (Loratadine) 10 Mg Tablet 10 MG PO DAILY, #30 TAB Sennosides/Docusate Sodium (Stool Softener-Laxative Tablet) 8.6 Mg-50 Mg Tablet 1 EA PO BID PRN for CONSTIPATION-1ST LINE, #30 TAB Changed Medications: Donepezil HCl (Donepezil HCl) 10 Mg Tablet 10 MG PO HS, #30 TAB (Changed from: Removed Instructions) Continued Medications: Losartan Potassium (Losartan Potassium) 25 Mg Tablet 25 MG PO DAILY, #30 TAB (This prescription has been renewed) Memantine HCl (Memantine HCl) 10 Mg Tablet 10 MG PO BID, #60 TAB (This prescription has been renewed) Norma Carrillo Jun 02, 2022 05:54 NORMA CARRILLO DO Jun 02, 2022 05:54
--- NOTE | 2022-06-02 05:55 | Discharge Summary ---
Diagnosis/Chief Complaint Date of Admission May 23, 2022 at 11:00 Date of Discharge Discharge Date: Jun 02, 2022 Discharge Diagnosis Assessment: Right hip fracture s/p repair HTN Dementia Falls Post op anemia from acute blood loss Incontinence Plan: Pain control Monitor hgb Fall risk PT OT 05/24/2022: Monitor BP 05/25/2022: Supportive care 05/26/2022: Monitor pain 05/27/2022: Supportive care Incontinence care 05/28/2022: Monitor closely 05/29/2022: Monitor closely 05/30/2022: Monitor closely Check labs in am 05/31/2022: Supportive care 06/01/2022: Monitor closely (1) Fracture of femoral neck, right, closed Status: Acute (2) Hypertension Status: Chronic (3) Dementia Status: Chronic (4) Fall on same level Status: Acute Discharge Summary Discharge Physical Examination Allergies: Coded Allergies: No Known Drug Allergies (Unverified , 05/18/22) Vitals & I&Os Vital Signs Date Time Temp Pulse Resp B/P (MAP) Pulse Ox O2 Delivery O2 Flow Rate FiO2 06/02/22 14:05 36.4 103 16 125/60 95 Room Air General Appearance: Alert, Cooperative Respiratory: Clear to Auscultation Cardiovascular: Regular Rate Psych/Mental Status: Mood NL Hospital Course Was the Problem List Reviewed?: Yes Standard course after admitted from med-surg after right hip fracture repair. Patient has severe dementia at baseline so that did limit recovery. Incontinence of both bowel and bladder limited improvements also. Pain was controlled with Tylenol only. Labs remained stable and overall had no issues during her stay and was improved enough to go to skilled care at [place]. Labs (last 24 hrs) Laboratory Tests 05/24/22 05:18: White Blood Count 8.4, Red Blood Count 2.86L, Hemoglobin 9.3L, Hematocrit 28L, Mean Corpuscular Volume 98, Mean Corpuscular Hemoglobin 33, Mean Corpuscular He moglobin Concent 33, Red Cell Distribution Width 12.9, Platelet Count 349, Mean Platelet Volume 9.7, Immature Granulocyte % (Auto) 0, Neutrophils (%) (Auto) 65, Lymphocytes (%) (Auto) 24, Monocytes (%) (Auto) 9, Eosinophils (%) (Auto) 1, Basophils (%) (Auto) 1, Neutrophils # (Auto) 5.5, Lymphocytes # (Auto) 2.0, Monocytes # (Auto) 0.8, Eosinophils # (Auto) 0.1, Basophils # (Auto) 0.1, Immature Granulocyte # (Auto) 0.0, Sodium Level 138, Potassium Level 4.1, Chloride Level 105, Carbon Dioxide Level 23, Anion Gap 10, Blood Urea Nitrogen 15, Creatinine 0.71, Estimat Glomerular Filtration Rate 89, BUN/Creatinine Ratio 21, Glucose Level 96, Calcium Level 8.0L, Corrected Calcium 9.4, Total Bilirubin 1.4H, Aspartate Amino Transf (AST/SGOT) 45H, Alanine Aminotransferase (ALT/SGPT) 22, Alkaline Phosphatase 105, Total Protein 5.4L, Albumin 2.3L 05/31/22 05:26: White Blood Count 11.9H, Red Blood Count 3.02L, Hemoglobin 10.0L, Hematocrit 31L , Mean Corpuscular Volume 102H, Mean Corpuscular Hemoglobin 33, Mean Corpuscular Hemoglobin Concent 32, Red Cell Distribution Width 16.0H, Platelet Count 435H, Mean Platelet Volume 8.3L, Immature Granulocyte % (Auto) 0, Neutrophils (%) (Auto) 77H, Lymphocytes (%) (Auto) 15, Monocytes (%) (Auto) 7, Eosinophils (%) (Auto) 1, Basophils (%) (Auto) 1, Neutrophils # (Auto) 9.1H, Lymphocytes # (Auto) 1.8, Monocytes # (Auto) 0.8, Eosinophils # (Auto) 0.1, Basophils # (Auto) 0.1, Immature Granulocyte # (Auto) 0.1, Sodium Level 141, Potassium Level 3.9, Chloride Level 108H, Carbon Dioxide Level 25, Anion Gap 8, Blood Urea Nitrogen 9, Creatinine 0.72, Estimat Glomerular Filtration Rate 87, BUN/Creatinine Ratio 13, Glucose Level 109H, Calcium Level 8.3L, Corrected Calcium 9.6, Total Bilirubin 1.2H, Aspartate Amino Transf (AST/SGOT) 41H, Alanine Aminotransferase (ALT/SGPT) 21, Alkaline Phosphatase 120, Total Protein 6.0L, Albumin 2.4L 05/31/22 13:55: SARS-CoV-2 RNA (RT-PCR) Not Detected Pending Labs Laboratory Tests 05/24/22 05:18: White Blood Count 8.4, Red Blood Count 2.86, Hemoglobin 9.3, Hematocrit 28, Mean Corpuscular Volume 98, Mean Corpuscular Hemoglobin 33, Mean Corpuscular Hemoglobin Concent 33, Red Cell Distribution Width 12.9, Platelet Count 349, Mean Platelet Volume 9.7, Immature Granulocyte % (Auto) 0, Neutrophils (%) (Auto) 65, Lymphocytes (%) (Auto) 24, Monocytes (%) (Auto) 9, Eosinophils (%) (Auto) 1, Basophils (%) (Auto) 1, Neutrophils # (Auto) 5.5, Lymphocytes # (Auto) 2.0, Monocytes # (Auto) 0.8, Eosinophils # (Auto) 0.1, Basophils # (Auto) 0.1, Immature Granulocyte # (Auto) 0.0, Sodium Level 138, Potassium Level 4.1, Chloride Level 105, Carbon Dioxide Level 23, Anion Gap 10, Blood Urea Nitrogen 15, Creatinine 0.71, Estimat Glomerular Filtration Rate 89, BUN/Creatinine Ratio 21, Glucose Level 96, Calcium Level 8.0, Corrected Calcium 9.4, Total Bilirubin 1.4, Aspartate Amino Transf (AST/SGOT) 45, Alanine Aminotransferase (ALT/SGPT) 22, Alkaline Phosphatase 105, Total Protein 5.4, Albumin 2.3 05/31/22 05:26: White Blood Count 11.9, Red Blood Count 3.02, Hemoglobin 10.0, Hematocrit 31, Mean Corpuscular Volume 102, Mean Corpuscular Hemoglobin 33, Mean Corpuscular Hemoglobin Concent 32, Red Cell Distribution Width 16.0, Platelet Count 435, Mean Platelet Volume 8.3, Immature Granulocyte % (Auto) 0, Neutrophils (%) (Auto) 77, Lymphocytes (%) (Auto) 15, Monocytes (%) (Auto) 7, Eosinophils (%) (Auto) 1, Basophils (%) (Auto) 1, Neutrophils # (Auto) 9.1, Lymphocytes # (Auto) 1.8, Monocytes # (Auto) 0.8, Eosinophils # (Auto) 0.1, Basophils # (Auto) 0.1, Immature Granulocyte # (Auto) 0.1, Sodium Level 141, Potassium Level 3.9, Chloride Level 108, Carbon Dioxide Level 25, Anion Gap 8, Blood Urea Nitrogen 9, Creatinine 0.72, Estimat Glomerular Filtration Rate 87, BUN/Creatinine Ratio 13, Glucose Level 109, Calcium Level 8.3, Corrected Calcium 9.6, Total Bilirubin 1.2, Aspartate Amino Transf (AST/SGOT) 41, Alanine Aminotransferase (ALT/SGPT) 21, Alkaline Phosphatase 120, Total Protein 6.0, Albumin 2.4 05/31/22 13:55: SARS-CoV-2 RNA (RT-PCR) Not Detected Discharge Home Medications: Active Scripts Active Stool Softener-Laxative Tablet (Sennosides/Docusate Sodium) 8.6 Mg-50 Mg Tablet 1 Ea PO BID PRN Acetaminophen 325 Mg Tablet 650 Mg PO TID Aspirin EC (Aspirin) 81 Mg Tablet.dr 81 Mg PO DAILY Loratadine 10 Mg Tablet 10 Mg PO DAILY Donepezil HCl 10 Mg Tablet 10 Mg PO HS Memantine HCl 10 Mg Tablet 10 Mg PO BID Losartan Potassium 25 Mg Tablet 25 Mg PO DAILY Instructions to patient/family Please see electronic discharge instructions given to patient. Diagnosis/Problems Diagnosis/Problems (1) Fracture of femoral neck, right, closed Status: Acute (2) Hypertension Status: Chronic (3) Dementia Status: Chronic (4) Fall on same level Status: Acute CULLEN GARCIA DO Jun 02, 2022 05:55
[2022-06-02 07:38] VITALS: BP 125/60
[2022-06-02] MEDS: LORATADINE (CLARITIN) 10 MG TAB PO SCH (08:16)
[2022-06-02] MEDS: LOSARTAN 25 MG (COZAAR) TAB PO SCH (08:16)
[2022-06-02] MEDS: ASPIRIN E.C. 81 MG (ECOTRIN) TAB PO SCH (08:16)
[2022-06-02] MEDS: ACETAMINOPHEN 325 MG TABLET PO SCH ×2 (08:16→13:36)
[2022-06-02] MEDS: MEMANTINE 10 MG (NAMENDA) TABLET PO SCH (08:16)
[2022-06-02] MEDS: DOCUSATE SODIUM 100 MG (COLACE) CAP PO SCH (09:03)
[2022-06-02] MEDS: SENNA W/DOCUSATE (SENOKOT S) TABLET PO SCH (09:03)
[2022-06-02] MEDS: polyethylene glycoL POWDER 17 GM (MIRALAX) PACK PO SCH (09:03)
[2022-06-02] MEDS: SENNOSIDES 8.6 MG (SENOKOT) TAB PO SCH (09:04)
[2022-06-02] MEDS: HYPOCHLOROUS ACID/NaCl (VASHE) 250 ML IR SCH (10:08)
--- NOTE | 2022-06-02 11:38 | Therapy Team Discharge Summary ---
Therapy Discharge Summary Discharge Recommendations Date of Discharge Physical Therapy Patient came to rehab s/p Right Hip Fracture Repair. Upon evaluation patient performs rolling with min assist, supine <-> sit mod assist, sit <-> stand min assist, transfers CGA, car transfer min assist, ambulate 120' with a rolling walker with CGA (including 50' with at least 2 turns of 90 degrees and 10' over an uneven surface), up and down 1 step using a rolling walker with CGA, and picked up an object from the floor using a at home independent call center agent with CGA. Patient has been performing bed mobility and transfer training, balance and endurance training, functional strengthening, stair training, gait training, and education. Patient has made fair progress but has only met her half-way goals for rolling, stairs, and picking up an object from the floor. Now, patient performs rolling with independence, supine <-> sit min assist, sit <-> stand and transfers SBA, toilet transfer SBA, car transfer min assist, ambulate 150' with a rolling walker with SBA (including 50' with at least 2 turns of 90 degrees but needs CGA for 10' over an uneven surface), can go up and down 4 steps using 2 handrails with CGA, and can pickers material handlers an object from the floor using a at home independent call center agent with SBA. Patient is being discharged from this facility today and will be discharged from PT at this time. Roll Left to Right (QC): 6 Sit to Lying (QC): 3 Lying to Sitting/Side of Bed(Q: 3 Sit to Stand (QC): 4 Chair/Uqc-wh-Lzidh Xfer(QC): 4 Toilet Transfer (QC): 4 Car Transfer (QC): 3 Does the Patient Walk: Yes Mode of Locomotion: Walk Anticipated Mode of Locomotion: Walk Walk 10 feet (QC): 4 Walk 50 ft with 2 Turns(QC): 4 Walk 150 ft (QC): 4 Walking 10ft on uneven surface: 4 Distance: 120'x2, 60'x2 Gait Assistive Device: FWW Does the Pt Use a Wheelchair: No Wheel 50 ft with 2 turns (QC): 9 Wheel 150 ft (QC): 9 Type of Wheelchair: N/A #of Steps: 4 1 Step (curb) (QC): 4 4 Steps (QC): 4 12 Steps (QC): 88 Walking Assistive Device: Walker Balance Sitting Static: Normal Balance Sitting Dynamic: Normal Balance-Standing Static: Fair Picking up an Object (QC): 4 (SBA using at home independent call center agent) Occupational Therapy Decreased Activ Tolerance, Decreased UE Strength, Impaired Cognition Eating (QC): 6 Oral Hygiene (QC): 4 (SBA, min VCs for sequencing) Shower/Bathe Self (QC): 3 (Min A with buttocks and lower legs/feet) Upper Body Dressing (QC): 5 Lower Body Dressing (QC): 2 (Max A with donning pants.) On/Off Footwear (QC): 2 (pt able to doff slip on shoes, assist with donning.) Toileting Hygiene (QC): 3 (min A for hygiene for thoroughness.) PT Tube Former Operator Goals Tube Former Operator Goals PT Snf Goals Time Frame: Jun 14, 2022 PT OT Pain Eval : Comment: Reported but not rated Scoring Section J - Health Conditions 1. Rarely or not at all 2. Occasionally 3. Frequently 4. Almost constantly 8. Unable to answer Pain Effect on Sleep: 0 Pain Interference with Therapy: 1 Pain Interference w/Day-to-Day: 1 Roll Left to Right (QC): 6 Sit to Lying (QC): 4 (SBA) Lying-Sitting on Side/Bed(QC): 4 (SBA) Sit to Stand (QC): 4 (SBA) Chair/Nqn-jw-Juxwo Xfer(QC): 5 Car Transfer (QC): 4 (SBA) Does the Patient Walk: Yes Walk 10 feet (QC): 5 Walk 10ft-Uneven Surface(QC): 5 Walk 50ft with 2 Turns (QC): 5 Walk 150 ft (QC): 5 Wheel 50 feet with 2 turns (QC: 9 Stairs (FIM): 9 # of Steps: 4 1 Step (curb) (QC): 4 (CGA) 4 Steps (QC): 4 (CGA) 12 Steps (QC): 88 Picking up an Object (QC): 4 (SBA using at home independent call center agent) OT Tube Former Operator Goals Snf Goals Time Frame: Jun 25, 2022 Acute change in mental status: 0 Inattention: 0 Disorganized thinkin Altered level of consciousness: 0 Eating (QC): 5 Oral Hygiene (QC): 6 Toileting Hygiene (QC): 6 Shower/Bathe Self (QC): 5 Upper Body Dressing (QC): 5 Lower Body Dressing (QC): 4 On/Off Footwear (QC): 4 Additional Goals: 1-Demonstrate ADL Tasks, 2-Verbalize Understanding, 3- ImproveStrength/Armand 1=Demonstrate adherence to instructed precautions during ADL tasks. 2=Patient will verbalize/demonstrate understanding of assistive devices/modifications for ADL. 3=Patient will improve strength/tolerance for activity to enable patient to perform ADL's. GEORGETTE TEE PT Jun 02, 2022 11:38
[2022-06-02 14:05] VITALS: BP 125/60
--- NOTE | 2022-06-02 14:11 | Progress Note ---
Standard Progress Note Progress Notes/Assess & Plan Date Seen by a Provider: Jun 02, 2022 Time Seen by a Provider: 14:10 Progress/Assessment & Plan doing well Vital Signs Date Time Temp Pulse Resp B/P (MAP) Pulse Ox O2 Delivery O2 Flow Rate FiO2 05/26/22 07:40 36.5 64 16 137/63 (87) 96 05/25/22 21:15 Room Air 05/25/22 19:38 36.5 83 20 131/64 (86) 96 Room Air RLE--no calf tnderness neg Kathryn's able to perform SLR s/p R hip bipolar continue PT/OT Final Diagnosis no complaints R hip incision clean and dry natali removed s/p R hip biopolar to AL today MEREDITH PADILLA MD Jun 02, 2022 14:11
--- NOTE | 2022-06-03 08:51 | Therapy Team Discharge Summary ---
Therapy Discharge Summary Discharge Recommendations Date of Discharge Jun 02, 2022 at 14:07 Physical Therapy Roll Left to Right (QC): 6 Sit to Lying (QC): 3 Lying to Sitting/Side of Bed(Q: 3 Sit to Stand (QC): 4 Chair/Rek-ma-Qhdul Xfer(QC): 4 Toilet Transfer (QC): 4 Car Transfer (QC): 3 Does the Patient Walk: Yes Mode of Locomotion: Walk Anticipated Mode of Locomotion: Walk Walk 10 feet (QC): 4 Walk 50 ft with 2 Turns(QC): 4 Walk 150 ft (QC): 4 Walking 10ft on uneven surface: 4 Distance: 120'x2, 60'x2 Gait Assistive Device: FWW Does the Pt Use a Wheelchair: No Wheel 50 ft with 2 turns (QC): 9 Wheel 150 ft (QC): 9 Type of Wheelchair: N/A #of Steps: 4 1 Step (curb) (QC): 4 4 Steps (QC): 4 12 Steps (QC): 88 Walking Assistive Device: Walker Balance Sitting Static: Normal Balance Sitting Dynamic: Normal Balance-Standing Static: Fair Picking up an Object (QC): 4 (SBA using real estate recruiter) Occupational Therapy Pt admitted to ARU s/p R bipolar hip replacement. At [facility], pt was independent with ADLs and functional mobility, no AD. Upon initial evaluation, pt required set up with eating, SBA oral care, mod A showering, set up UE dressing, max A LE dressing and footwear and min A toileting. OT tx focused on increasing BUE strength and activity tolerance, education on hip precautions and AE for LE dressing, and increasing safety and independence with ADLs and functional mobility. Pt did not make significant progress towards goals, due to history of dementia, difficulty recalling and maintaining hip precautions, and poor carry over of AE between treatments. Pt discharged to SNF, with recommendations for continued OT services at SNF. D/C from OT. Decreased Activ Tolerance, Decreased UE Strength, Impaired Cognition Eating (QC): 6 Oral Hygiene (QC): 4 (SBA, min VCs for sequencing) Shower/Bathe Self (QC): 3 (Min A with buttocks and lower legs/feet) Upper Body Dressing (QC): 5 Lower Body Dressing (QC): 2 (Max A with donning pants.) On/Off Footwear (QC): 2 (pt able to doff slip on shoes, assist with donning.) Toileting Hygiene (QC): 3 (min A for hygiene for thoroughness.) PT Group Home Goals Neurological Physiotherapist Goals PT Neurological Physiotherapist Goals Time Frame: Jun 14, 2022 PT OT Pain Eval : Comment: Reported but not rated Scoring Section J - Health Conditions 1. Rarely or not at all 2. Occasionally 3. Frequently 4. Almost constantly 8. Unable to answer Pain Effect on Sleep: 0 Pain Interference with Therapy: 1 Pain Interference w/Day-to-Day: 1 Roll Left to Right (QC): 6 Sit to Lying (QC): 4 (SBA) Lying-Sitting on Side/Bed(QC): 4 (SBA) Sit to Stand (QC): 4 (SBA) Chair/Dbi-ud-Orjbv Xfer(QC): 5 Car Transfer (QC): 4 (SBA) Does the Patient Walk: Yes Walk 10 feet (QC): 5 Walk 10ft-Uneven Surface(QC): 5 Walk 50ft with 2 Turns (QC): 5 Walk 150 ft (QC): 5 Wheel 50 feet with 2 turns (QC: 9 Stairs (FIM): 9 # of Steps: 4 1 Step (curb) (QC): 4 (CGA) 4 Steps (QC): 4 (CGA) 12 Steps (QC): 88 Picking up an Object (QC): 4 (SBA using real estate recruiter) OT Neurological Physiotherapist Goals Neurological Physiotherapist Goals Time Frame: Jun 25, 2022 Acute change in mental status: 0 Inattention: 0 Disorganized thinkin Altered level of consciousness: 0 Eating (QC): 5 (met) Oral Hygiene (QC): 6 (not met) Toileting Hygiene (QC): 6 (not met) Shower/Bathe Self (QC): 5 (not met) Upper Body Dressing (QC): 5 (not met) Lower Body Dressing (QC): 4 (not met) On/Off Footwear (QC): 4 (not met) Additional Goals: 1-Demonstrate ADL Tasks, 2-Verbalize Understanding, 3- ImproveStrength/Armand 1=Demonstrate adherence to instructed precautions during ADL tasks. 2=Patient will verbalize/demonstrate understanding of assistive devices/modifications for ADL. 3=Patient will improve strength/tolerance for activity to enable patient to perform ADL's. TORI PINTO OT Jun 03, 2022 08:51
== END 2022-06-02 14:07 | DRG 559 ==
PROVIDERS: ADMIT Internal Medicine; ATTEND Internal Medicine
DX: S72.001D Fracture of unspecified part of neck of right femur, subsequent encounter for closed fracture with routine healing (principal); L89.613 Pressure ulcer of right heel, stage 3; D62 Acute posthemorrhagic anemia; E46 Unspecified protein-calorie malnutrition; F03.90 Unspecified dementia, unspecified severity, without behavioral disturbance, psychotic disturbance, mood disturbance, and anxiety; I10 Essential (primary) hypertension; M62.89 Other specified disorders of muscle; Z20.822 Contact with and (suspected) exposure to COVID-19; L89.891 Pressure ulcer of other site, stage 1; R15.9 Full incontinence of feces; R32 Unspecified urinary incontinence; Z68.23 Body mass index [BMI] 23.0-23.9, adult; Z91.81 History of falling; E88.09 Other disorders of plasma-protein metabolism, not elsewhere classified; M20.10 Hallux valgus (acquired), unspecified foot; M50.30 Other cervical disc degeneration, unspecified cervical region; W18.30XD Fall on same level, unspecified, subsequent encounter
CPT/HCPCS: 36415; 80053; 85025; 87636